=== PATIENT | male | born 1965 | race Caucasian/White ===

== ENCOUNTER 2023-12-29 07:32 | Outpatient (CLI) | payer OTHER, SELFPAY ==
--- NOTE | ~2023-12-29 | MR_ITS ---
MRI of the lumbar spine Clinical History: Radiculopathy Technique: Axial T2-weighted images, and sagittal T1-weighted, T2-weighted, and T2 fat-sat images wer e acquired. Findings: There is no fracture or subluxation of the lumbar spine. Vertebral bodies maintain normal h eight and alignment. No suspicious bone marrow signal abnormality seen. There is intraosseous hemangi gian in the T12 vertebral body. At L1-L2, there is mild disc narrowing. There is moderate facet arthropathy. No significant disc bulg e or herniation. No spinal canal stenosis or neural foraminal narrowing. At L2-L3, there is minimal disc bulge and moderate facet arthropathy. No central canal stenosis or ne ural foraminal narrowing. L3-L4, there is minimal disc bulge with advanced facet arthropathy. No central canal stenosis. There is probable minimal right neural foraminal narrowing. Left neural foramen present. At L4-L5, there is mild diffuse disc bulge with moderate to advanced facet arthropathy. No central ca nal stenosis or neural foraminal narrowing. At L5-S1, there is no disc bulge or herniation. No spinal canal stenosis or neural foraminal narrowin g. Paravertebral soft tissues are unremarkable. Impression: Minimal degenerative spondylosis, as above. Reviewed, dictated and finalized at location . Impression: Minimal degenerative spondylosis, as above.
--- NOTE | ~2023-12-29 | MR_ITS ---
MRI of the cervical spine Clinical History: Radiculopathy Technique: Axial T2-weighted and gradient images, and sagittal T1-weighted, T2-weighted, and STIR aj ges were acquired. Findings: There is anterior fusion from C3 through C6, with anterior plates and screws present. No ac lynn fracture or subluxation evident. No suspicious bone marrow signal abnormality seen. C2-C3, there is minimal degenerative disc change. No central canal stenosis, cord compression, or def inite neural foraminal narrowing. At C3-C4, there is no disc bulge or herniation. Probable minimal canal stenosis without cord compress ion. There is bilateral neural foraminal narrowing, left worse than right. At C4-C5, there is no disc bulge or herniation. No canal stenosis or cord compression. There is proba ble bilateral neural foraminal narrowing, right worse than left. At C5-C6, there is no disc bulge or herniation. No spinal canal stenosis, cord compression, or defini te neural foraminal narrowing. At C6-C7, there is no disc bulge or herniation. No spinal canal stenosis, cord compression, or defini te neural foraminal narrowing. No abnormal signal seen in the spinal cord. Paravertebral soft tissues are unremarkable. Impression: Anterior cervical fusion from C3 through C6. Mild degenerative spondylosis, as above. Reviewed, dictated and finalized at [facility]. Impression: Anterior cervical fusion from C3 through C6. Mild degenerative spondylosis, as above.
== END 2023-12-29 07:33 | disposition home or self-care (01) ==
PROVIDERS: Visit Provider Physical Medicine & Rehabilitation Pain Medicine
DX: M47.812 Spondylosis without myelopathy or radiculopathy, cervical region (principal); M47.816 Spondylosis without myelopathy or radiculopathy, lumbar region; M43.22 Fusion of spine, cervical region; M54.12 Radiculopathy, cervical region; M54.16 Radiculopathy, lumbar region
CPT/HCPCS: 72141; 72148

== ENCOUNTER 2024-09-16 06:55 | Outpatient (CLI) | payer OTHER, SELFPAY ==
--- NOTE | ~2024-09-16 | MR_ITS ---
MRI of the cervical spine Clinical History: Radiculopathy Technique: Axial T2-weighted and gradient images, and sagittal T1-weighted, T2-weighted, and STIR aj ges were acquired. Following intravenous administration of 20 cc MultiHance gadolinium, T1-weighted f at-sat imaging was performed in the axial and sagittal planes. COMPARISON: 12/29/2023 Findings: No acute fracture or subluxation identified. Osseous alignment is unchanged. Stable anterio r fusion from C3 through C7. No suspicious marrow signal abnormality seen, but there is extensive art ifact related to the hardware. There is minimal disc bulge at C2-C3. Neural foramina appear preserved. No canal stenosis or cord com pression. At C3-C4, there is mild canal stenosis without sherry cord compression. There is left neural foraminal narrowing. Right neural foramen preserved. At C4-C5, there is mild bilateral neural foraminal narrowing, right worse than left. No canal stenosi s or cord compression. At C5-C6, there is probable mild bilateral neural foraminal narrowing. No canal stenosis or cord comp ression. At C6-C7, there may be minimal right neural foraminal narrowing. Left neural foramen preserved. No ca nal stenosis or cord compression. No abnormal signal seen in the spinal cord. Paravertebral soft tissues are unremarkable. No suspiciou s postcontrast enhancement identified. Impression: Anterior fusion from C3 through C7. Kagr-cr-cmtnbaad degenerative spondylosis in the cervical spine, with multilevel probable mild neural foraminal narrowing present. Reviewed, dictated and finalized at [facility]. Impression: Anterior fusion from C3 through C7. Vnnh-zt-vbfxrxlu degenerative spondylosis in the cervical spine, with multileve l probable mild neural foraminal narrowing present.
--- NOTE | ~2024-09-16 | CT_ITS ---
CT Scan of the Chest without Contrast: Clinical Indication: Lung cancer screening, nicotine dependence Technique: Contiguous sections were acquired throughout the chest without intravenous contrast. Dose reduction technique was used on this scan by utilizing automated exposure control and iterative recon struction technique. The dose-length product (DLP) was 153.63 mGy-cm. Findings: There is no evidence of any significant mediastinal, hilar or axillary lymphadenopathy. Calcified med iastinal and hilar lymph nodes are present. There is no evidence of pleural or pericardial effusion. 5 mm right lower lobe pulmonary nodule present (axial image 51). 5 mm right middle lobe nodule presen t (axial image 54). Pleural-based nodule posteriorly at the right lower lobe measures 1 cm (axial aj ge 62). Calcified right basilar granulomas are present. There is a 3 mm left lower lobe nodule (axial image 69). There is a 3 mm pleural-based nodules in the left lower lobe (axial image 50). Images through the upper abdomen reveal calcified gallstones. Impression: Lung RADS 4A: Suspicious. 3 month follow-up CT recommended. Reviewed, dictated and finalized at location M. Impression: Lung RADS 4A: Suspicious. 3 month follow-up CT recommended.
--- OUTSIDE RECORDS SUMMARY | 2024-09-16 06:59 | XMS_ITS | Referral Summary ---
Author Organization [address] Address [address] [place] [address] [address] [place] [address] Care Team Providers Care Rapid Extractor Operator Name Role Phone Ginette Childs [place] Unavailable + [phone] Tay Finley MD Unavailable [phone] Sadi Cisneros MD Primary Care Provider Encounters Date Type Department Care Team Description 07/13/2024 Results Follow-Up [facility] at [address] [address] Sadi Cisneros MD Folate, Vitamin B12, Comprehensive metabolic panel, Additional followed-up results: 9 07/12/2024 9:14 AM CDT - 07/12/2024 11:59 PM CDT Hospital Encounter [address] [address] Type 2 diabetes mellitus with hyperglycemia, without long-term current use of insulin (HCC); Mixed dyslipidemia; Need for hepatitis B screening test; Prostate cancer screening; Subclinical hypothyroidism Discharge Disposition: Discharge to home or self care 07/12/2024 9:15 AM CDT Lab [facility] at [address] [id number] Type 2 diabetes mellitus with hyperglycemia, without long-term current use of insulin (HCC) (Primary Dx) 07/12/2024 8:30 AM CDT Office Visit [facility] at [address] [address] Sadi Cisneros MD Preventative health care (Primary Dx); QUYEN on CPAP; Mixed dyslipidemia; Paranoid schizophrenia (HCC); Subclinical hypothyroidism; Type 2 diabetes mellitus with hyperglycemia, without long-term current use of insulin (HCC); Need for hepatitis B screening test; Prostate cancer screening; Personal history of tobacco use; Hx of colonic polyps; History of neck surgery; Family hx of colon cancer; Recurrent epistaxis; Moderate episode of recurrent major depressive disorder (HCC); JOSÉ MIGUEL (generalized anxiety disorder); CKD stage 3a, GFR 45-59 ml/min (HCC) from Last 3 Months Allergies No known active allergies Medications traZODone (DESYREL) 100 mg tablet Take 2 tablets (200 mg total) by mouth nightly Active Invega Sustenna 156 mg/mL syringe Inject 1 mL (156 mg total) into the muscle as instructed every 4 (four) weeks 4 Active empagliflozin (JARDIANCE) 25 mg tabletIndicatio ns:Type 2 diabetes mellitus with hyperglycemia, without long-term current use of insulin (HCC) Take 1 tablet (25 mg total) by mouth daily 90 tablet 1 5 Active metFORMIN XR (GLUCOPHAGE XR) 500 mg 24 hr tabletIndicatio ns:Type 2 diabetes mellitus with hyperglycemia, without long-term current use of insulin (HCC) Take 2 tablets (1,000 mg total) by mouth 2 (two) times a day with meals 360 tablet 3 5 Active rosuvastatin (CRESTOR) 20 mg tabletIndicatio ns:Mixed dyslipidemia,Ty pe 2 diabetes mellitus with hyperglycemia, without long-term current use of insulin (HCC) Take 1 tablet (20 mg total) by mouth daily 90 tablet 3 5 Active Active Problems Problem Noted Date Diagnosed Date CKD stage 3a, GFR 45-59 ml/min 07/13/2024 Assessment & Plan (07/13/2024 8:06 AM CDT): - chronic condition - avoid NSAIDs, Bactrim, Contrast, PPI - continue with low phos diet and low K diet - renally dose medications Lab Results Component Value Date CREATININE 1.52 (H) 07/12/2024 CREATININE 1.32 (H) 12/11/2023 CREATININE 1.52 (H) 04/24/2023 JOSÉ MIGUEL (generalized anxiety disorder) 07/12/2024 Assessment & Plan (07/12/2024 9:54 AM CDT): - Paranoid Schizophrenia, anxiety, depression Being treated with Invega. Reports ongoing auditory and visual hallucinations, which worsen when due for medication. Consistent with medication adherence. - Continue Invega - continue with Trazodone 200 mg nightly Bipolar disorder Recently transitioned off Seroquel, experiencing mood swings and sleep disturbances. Transition has been challenging with mood swings and thoughts of something happening. - Monitor mood and sleep patterns - Evaluate need for medication adjustment MDD (major depressive disorder) 07/12/2024 Assessment & Plan (07/12/2024 9:55 AM CDT): - Paranoid Schizophrenia, anxiety, depression Being treated with Invega. Reports ongoing auditory and visual hallucinations, which worsen when due for medication. Consistent with medication adherence. - Continue Invega - continue with Trazodone 200 mg nightly Bipolar disorder Recently transitioned off Seroquel, experiencing mood swings and sleep disturbances. Transition has been challenging with mood swings and thoughts of something happening. - Monitor mood and sleep patterns - Evaluate need for medication adjustment History of neck surgery 07/12/2024 Assessment & Plan (07/12/2024 9:00 AM CDT): - hx of cervical spine surgery - fusion - hx of cervical spine fusion for DDD cervical spine, cervical radiculopathy - last done in 2019 Preventative health care 07/12/2024 Assessment & Plan (07/13/2024 8:03 AM CDT): - New or chronic worsening conditions or conditions that are not at goal: T2DM, recurrent epistaxis - Mental health: following with psychiatry for depression, anxiety, bipolar disorder and schizophrenia - Dental health: Recommend regular dental care and cleaning. Discussed importance of regular tooth brushing, flossing, and dental visits. - Nutrition: Recommend moderation in sodium/caffeine intake, saturated fat and cholesterol, caloric balance, sufficient intake of fresh fruits, vegetables - Exercise: Recommend to exercise at least 30 minutes moderate to vigorous exercise most days of the week. (minimum 150 minutes weekly) - Immunizations: Age and sex appropriate immunizations reviewed and offered - Prostate cancer screening: Recommended, order placed - Colon cancer screening: Recommended, order placed - Lung cancer screening: Recommended, order placed Lab Results Component Value Date PSA 0.52 07/12/2024 PSA 0.66 04/24/2023 Family hx of colon cancer 07/12/2024 Assessment & Plan (07/12/2024 9:55 AM CDT): - reports family hx of colon cancer in brother - reports hx of colon polyp in past - referral placed to GI for colonoscopy Hx of colonic polyps 07/12/2024 Assessment & Plan (07/12/2024 9:55 AM CDT): - reports family hx of colon cancer in brother - reports hx of colon polyp in past - referral placed to GI for colonoscopy Personal history of tobacco use 07/12/2024 Assessment & Plan (07/12/2024 9:52 AM CDT): Social History Tobacco Use Smoking Status Former Current packs/day: 0.00 Average packs/day: 1.5 packs/day for 20.0 years (30.0 ttl pk-yrs) Types: Cigarettes Start date: 03/1996 Quit date: 03/2016 Years since quittin.2 Smokeless Tobacco Never - continue with abstinence from tobacco smoking - due for lung cancer screening CT, order placed Recurrent epistaxis 07/12/2024 Assessment & Plan (07/12/2024 9:51 AM CDT): Intermittent epistaxis from left nostril, ongoing for 1-2 months. Likely due to dryness and irritation. No clear obstruction noted. ENT referral considered if symptoms persist. - Use saline nasal spray three times daily - Apply Vaseline to affected area - Consider ENT referral if symptoms persist Subclinical hypothyroidism 04/25/2023 Overview (07/13/2024): Resolved 07/23 Assessment & Plan (07/12/2024 8:44 AM CDT): - noted in the past - recheck labs, order placed Lab Results Component Value Date TSH 8.84 (H) 04/24/2023 Type 2 diabetes mellitus wit h stage 3a chronic kidney disease, without long-term current use of insulin 04/25/2023 Assessment & Plan (12/11/2023 5:09 PM CDT): Patient is a degree of CKD stage IIIA on his last labs. Diabetes poorly controlled needs improvement. Metformin dose increased. We will add Jardiance for diabetic control as well as renal benefits. Monitor. Worker about it in exercise Type 2 diabetes mellitus wit h hyperglycemia, without long-term current use of insulin 04/22/2023 Assessment & Plan (07/13/2024 8:02 AM CDT): Chronic condition, better controlled but not at goal Goal A1c <7 Diagnosed 2-3 years ago. Current A1c is 7.9, improved from previous 9.0. On metformin 1000 mg BID and Jardiance 10 mg daily. Plan to optimize glycemic control by increasing Jardiance dosage. - Increase Jardiance to 25 mg daily - Order comprehensive blood work including A1c - Follow up in 4 months to assess diabetes control Lab Results Component Value Date HGBA1C 9.0 12/11/2023 HGBA1C 7.9 04/22/2023 Lab Results Component Value Date LDLCALC 47 07/12/2024 CREATININE 1.52 (H) 07/12/2024 Assessment & Plan (12/11/2023 5:09 PM CDT): Chronic. Poorly controlled. Blood sugars and A1c worsening. Increase metformin to a 1000 mg twice daily. Add Jardiance 10 mg daily. Discussed option for coupon card that they can get [id number]. Reviewed side effects of medication. Really work on diabetic diet and exercise. Encouraged weight loss. We will plan to see him back in 3 months for monitoring. Assessment & Plan (04/22/2023 5:50 PM IT CONSULTING DIRECTOR): Chronic. Uncontrolled but has been off his metformin the last 2 months. We will restart. Discussed diabetic foot and eye care. Foot exam done today. He may have very subtle signs suggesting early diabetic neuropathy which will need to be monitored but sensation was still present to monofilament. Encouraged yearly eye exam. Patient plans to schedule once we get his A1c under better control. Counseled on diabetic diet and regular exercise. We will follow up with him in 3 months Paranoid schizophrenia 04/22/2023 Overview (07/12/2024): Follows with psychiatry Assessment & Plan (07/12/2024 9:54 AM CDT): - Paranoid Schizophrenia, anxiety, depression Being treated with Invega. Reports ongoing auditory and visual hallucinations, which worsen when due for medication. Consistent with medication adherence. - Continue Invega - continue with Trazodone 200 mg nightly Bipolar disorder Recently transitioned off Seroquel, experiencing mood swings and sleep disturbances. Transition has been challenging with mood swings and thoughts of something happening. - Monitor mood and sleep patterns - Evaluate need for medication adjustment Assessment & Plan (04/22/2023 5:52 PM IT CONSULTING DIRECTOR): Chronic. Follows with Psychiatry. Reports currently stable on regimen. Continue medication care per psychiatrist NAFLD (nonalcoholic fatty liver disease) 024 Assessment & Plan (12/11/2023 5:10 PM CDT): LFTs were okay on last labs. Encouraged healthy diet, exercise, weight loss. We will monitor. Repeat LFTs and CMP ordered to establish baseline. Assessment & Plan (04/22/2023 5:54 PM IT CONSULTING DIRECTOR): Patient with history of fatty liver disease. Prior records show possible signs of elevated LFTs in 2020 consistent with likely FORD. Counseled on healthy diet, exercise. We will monitor his lab Mixed dyslipidemia 03/06/2021 Assessment & Plan (07/13/2024 8:03 AM CDT): - chronic condition - status: is adequately controlled. - current management/medications: Rosuvastatin 20 mg daily - other comorbid conditions:T2DM - patient is compliant with medications. - most recent LDL as shown below - maintain a healthy weight, diet - will monitor closely The current medical regimen is effective; continue present plan and medications. Lab Results Component Value Date CHOL 133 07/12/2024 CHOL 133 12/11/2023 CHOL 280 (H) 04/24/2023 Lab Results Component Value Date HDL 62 07/12/2024 HDL 60 12/11/2023 HDL 49 04/24/2023 Lab Results Component Value Date LDLCALC 47 07/12/2024 LDLCALC 50 12/11/2023 LDLCALC See Comment 04/24/2023 LDLDIRECT 163 (H) 04/24/2023 Lab Results Component Value Date TRIG 141 07/12/2024 TRIG 131 12/11/2023 TRIG 496 (H) 04/24/2023 Lab Results Component Value Date ALT 38 07/12/2024 AST 33 07/12/2024 ALKPHOS 63 07/12/2024 BILITOT 0.4 07/12/2024 Assessment & Plan (12/11/2023 5:11 PM CDT): Chronic. Was uncontrolled at last visit. Tolerating rosuvastatin. Get updated cholesterol level to monitor response Assessment & Plan (04/22/2023 5:50 PM IT CONSULTING DIRECTOR): Chronic. Has been on lovastatin possibly at a 20 mg dose. Remotely looks like may have been on rosuvastatin several years ago. Check cholesterol level and start appropriate intensity statin based on results QUYEN on CPAP 10/26/2020 Overview (04/22/2023): (10/26/20 at [facility]): AHI = 22.6 / supine AHI = 61.5 / O2 fabricio = 87%; lack of sleep onset with CPAP. Assessment & Plan (07/12/2024 9:56 AM CDT): Uses CPAP machine regularly. Reports difficulty using CPAP due to nasal obstruction. CPAP humidifier functioning to aid in symptom management. - Provide serial number of CPAP machine for monitoring - Ensure CPAP humidifier is functioning To send me the serial number (10/26/20 at [facility]): AHI = 22.6 / supine AHI = 61.5 / O2 fabricio = 87%; lack of sleep onset with CPAP. Assessment & Plan (04/22/2023 5:52 PM IT CONSULTING DIRECTOR): Chronic. He reports compliance with CPAP. Continue Resolved Problems Problem Noted Date Diagnosed Date Resolved Date Class 1 obesity due to exces s calories with serious comorbidity and body mass index (BMI) of 30.0 to 30.9 in adult 12/11/2023 07/12/2024 Assessment & Plan (12/11/2023 5:12 PM CDT): Chronic. BMI worse since last visit. Encouraged healthy diet, exercise, weight loss. Monitor NARAYANAN (dyspnea on exertion) 04/22/2023 Assessment & Plan (04/22/2023 5:51 PM IT CONSULTING DIRECTOR): Chronic intermittent issue off and on for years. Patient had cardiology evaluation in 02/2021. Cardiac catheterization at that time was negative for any signs of coronary artery disease. It is possible that it is actually a respiratory issue. He has had increased shortness of breath and activity intolerance over the last 3 weeks. EKG done in office today shows a normal sinus rhythm with possible early R/S transition however this could slightly be due to lead placement location. There was no definitive Q-waves. There was no pathologic ST elevation or depression. We will obtain pulmonary function testing to further evaluate symptoms. Patient is to avoid smoking and vaping. We will check some baseline labs Nicotine use disorder 04/22/20232024 Overview (07/12/2024): Quit 2017 Assessment & Plan (07/12/2024 8:42 AM CDT): Social History Tobacco Use Smoking Status Former Current packs/day: 0.00 Average packs/day: 1.5 packs/day for 20.0 years (30.0 ttl pk-yrs) Types: Cigarettes Start date: 03/1996 Quit date: 03/2016 Years since quittin.2 Smokeless Tobacco Never - continue with abstinence Assessment & Plan (12/11/2023 5:11 PM CDT): Encouraged to quit. Monitor Assessment & Plan (04/22/2023 5:53 PM IT CONSULTING DIRECTOR): Chronic. Patient with history of heavy tobacco smoking for over 20 years. He is at increased risk for lung cancer. May warrant low-dose lung cancer screening once we see if his respiratory symptoms stabilize a little bit more as we are not allowed to do the low-dose CT screening during acute illness. We will obtain PFTs to further evaluate the respiratory symptoms Benign essential HTN 03/06/2021 025 Assessment & Plan (12/11/2023 5:10 PM CDT): Blood pressure well-controlled in office today. Patient reports he was not taking losartan. Given blood pressure is good without losartan we will continue to monitor off blood pressure medication. Encouraged healthy diet and lifestyle. Encouraged weight loss Assessment & Plan (04/22/2023 5:49 PM IT CONSULTING DIRECTOR): Chronic. Blood pressure was controlled in office today. It has not positive on his current dose. May be losartan 25 however when my staff call the pharmacy sounds like it might actually be losartan 100. Patient is to verify his losartan dose when he gets home and let us know so we can refill the correct dose. Records request completed for his last PCP Immunizations Immunization Administration Dates Next Due H1N1 Inj Preservative Free 02/25/2022 Influenza, Quadrivalent, Spl it, Preservative Free, Intramuscular 02/25/2022 Influenza, Unspecified 07/12/2024(Deferr ed: Patient Refused),03/31/2023(Deferred: Patient Refused) Social History Tobacco Use Types Packs/Day Years Used Date Smoking Tobacco: Former Cigarettes 1.5 20 0 03/1996 - 03/2016 Smokeless Tobacco: Never Tobacco Cessation:Counseling Given: Not Answered AUDIT-C Answer Date Recorded Q1: How often do you have a drink containing alcohol? Never 12/11/2023 Q2: How many drinks containi ng alcohol do you have on a typical day when you are drinking? Patient does not drink Q3: How often do you have si x or more drinks on one occasion? Never 12/11/2023 PHQ-2 Answer Date Recorded PHQ-2 Total Score (If total score is 3 or more points, staff should administer the PHQ-9) 0 07/12/2024 Sex and Gender Information Value Date Recorded Sex Assigned at Not on file Legal Sex Male 1:00 PM CDT Gender Identity Not on file Sexual Orientation Not on file Last Filed Vital Signs Vital Sign Reading Time Taken Comments Blood Pressure 126/76 07/12/2024 8:28 AM CDT Pulse 78 07/12/2024 8:28 AM CDT Temperature 36.8 C (98.2 F) 07/12/2024 8:28 AM CDT Respiratory Rate 16 12/11/2023 1:39 PM CDT Oxygen Saturation 98% 07/12/2024 8:28 AM CDT Inhaled Oxygen Concentration - - Weight 104.9 kg (231 lb 4.8 oz) 07/12/2024 8:28 AM CDT Height 188 cm (6' 2) 07/12/2024 8:28 AM CDT Body Mass Index 29.7 07/12/2024 8:28 AM CDT Plan of Treatment Not on file Procedures Procedure Name Priority Date/Time Associated Diagnosis Comments EGFR Routine 07/12/2024 9:14 AM CDT Type 2 diabetes mellitus with hyperglycemia, without long-term current use of insulin (HCC) DIFFERENTIAL AUTO Routine 07/12/2024 9:1 4 AM CDT Type 2 diabetes mellitus with hyperglycemia, without long-term current use of insulin (HCC) THYROID FUNCTION CASCADE Routine 07/12/2024 9:14 AM CDT Subclinical hypothyroidism PSA SCREEN Routine 07/12/2024 9:14 AM CDT Prostate cancer screening ALBUMIN CREATININE RATIO, URINE Routine 07/12/2024 9:14 AM CDT Type 2 diabetes mellitus with hyperglycemia, without long-term current use of insulin (HCC) CBC WITH AUTO DIFFERENTIAL Routine 07/12/2024 9:14 AM CDT Type 2 diabetes mellitus with hyperglycemia, without long-term current use of insulin (HCC) LIPID PANEL Routine 07/12/2024 9:14 AM CDT Mixed dyslipidemia Type 2 diabetes mellitus with hyperglycemia, without long-term current use of insulin (HCC) COMPREHENSIVE METABOLIC PANEL Routine 07/12/2024 9:14 AM CDT Type 2 diabetes mellitus with hyperglycemia, without long-term current use of insulin (HCC) VITAMIN B12 Routine 07/12/2024 9:14 AM CDT Type 2 diabetes mellitus with hyperglycemia, without long-term current use of insulin (HCC) FOLATE Routine 07/12/2024 9:14 AM CDT Type 2 diabetes mellitus with hyperglycemia, without long-term current use of insulin (HCC) HEPATITIS B SURFACE ANTIGEN Routine 07/12/2024 9:14 AM CDT Need for hepatitis B screening test HEPATITIS B CORE ANTIBODY, TOTAL Routine 07/12/2024 9:14 AM CDT Need for hepatitis B screening test HEPATITIS B SURFACE ANTIBODY (IMMUNE STATUS) Routine 07/12/2024 9:14 AM CDT Need for hepatitis B screening test POCT HEMOGLOBIN A1C Routine 07/12/2024 8 :30 AM CDT Type 2 diabetes mellitus with hyperglycemia, without long-term current use of insulin (HCC) HM DIABETES EYE EXAM Routine 09/24/2023 8:51 AM CDT HEPATITIS C ANTIBODY Routine 04/24/2023 11:47 AM IT CONSULTING DIRECTOR Encounter for hepatitis C screening test for low risk patient from Last 3 Months or Most Recently Relevant to Health Maintenance Results * (ABNORMAL) eGFR (07/12/2024 9:14 AM CDT) eGFR 53(L) >=60 mL/min/1. 73 m2 Comment: Interpretive Data Reference Interval Normal >/= 90 mL/min/1.73m2 Mildly decreased* 60 - 89 mL/min/1.73m2 Mildly to moderately decreased 45 - 59 mL/min/1.73m2 Moderately to severely decreased 30 - 44 mL/min/1.73m2 Severely decreased 15 - 29 mL/min/1.73m2 Kidney Failure < 15 mL/min/1.73m2 *Relative to young adult level Estimated glomerular filtration rate is determined by the 2020 CKD-EPI equation recommended by the National Kidney Foundation (A Unifying Approach to GFR Estimation: Recommendations of the NKF-ASK Task Force on Reassessing the Inclusion of Race in Diagnosing Kidney Disease, JASN 2020). The CKD-EPI equation should not be used for patients with unstable renal function and has not been validated in children and those over 70. Current interpretive data was last reviewed 2021. Blood 07/12/2024 9:14 AM CDT 07/12/2024 7:47 PM CDT us Sadi Cisneros MD LAB BLOOD ORDERABLES nal Result CATHERINE [id number] Department [place] [address] * Differential, auto (07/12/2024 9:14 AM CDT) Neutrophil abs 5.53 1.50 - 6.50 K/cumm Imm gran abs 0.06 0.00 - 0.10 K/cumm [facility] Lymphocyte abs 1.51 0.80 - 3.30 K/cumm [facility] Monocyte abs 0.61 0.20 - 0.80 K/cumm [facility] Eosinophil abs 0.20 0.00 - 0.50 K/cumm [facility] Basophil abs 0.09 0.00 - 0.10 K/cumm [facility] Neutrophil pct 69.1 % [facility] Comment: Interpretive Data Percent cell count reference ranges are not reported, since discordance with absolute values may lead to misinterpretation of CBC data. Current Interpretive Data was last revised on 2017. Imm gran pct 0.8 % [facility] Comment: Interpretive Data Percent cell count reference ranges are not reported, since discordance with absolute values may lead to misinterpretation of CBC data. Current Interpretive Data was last revised on 2017. Lymphocyte pct 18.9 % [facility] Comment: Interpretive Data Percent cell count reference ranges are not reported, since discordance with absolute values may lead to misinterpretation of CBC data. Current Interpretive Data was last revised on 2017. Monocyte pct 7.6 % [facility] Comment: Interpretive Data Percent cell count reference ranges are not reported, since discordance with absolute values may lead to misinterpretation of CBC data. Current Interpretive Data was last revised on 2017. Eosinophil pct 2.5 % [facility] Comment: Interpretive Data Percent cell count reference ranges are not reported, since discordance with absolute values may lead to misinterpretation of CBC data. Current Interpretive Data was last revised on 2017. Basophil pct 1.1 % [facility] Comment: Interpretive Data Percent cell count reference ranges are not reported, since discordance with absolute values may lead to misinterpretation of CBC data. Current Interpretive Data was last revised on 2017. Blood 07/12/2024 9:14 AM CDT 07/12/2024 3:35 PM CDT Sadi Cisneros MD LAB BLOOD ORDERABLES Fi nal Result Performing Organization Address [facility] [[email or web address]] de Phone Number CATHERINE [phone] [place] [address] * Thyroid Function [place] (07/12/2024 9:14 AM CDT) Pathologist [facility] TSH 2.87 0.30 - 4.20 mcIUnit/mL Blood 07/12/2024 9:14 AM CDT 07/12/2024 3:35 PM CDT Sadi Cisneros MD LAB BLOOD ORDERABLES Fi nal Result Performing Organization Address [facility] [[email or web address]] de Phone Number CATHERINE [phone] Department [employer] [place] [address] * PSA screen (07/12/2024 9:14 AM CDT) PSA-Total 0.52 <=3.90 ng/mL Comment: Interpretive Data AGE SEX REFERENCE INTERVAL 0 minutes-150 years Female None 0 minutes-49 years Male None 50-59 years Male 0-3.90 60-69 years Male 0-5.40 70-79 years Male 0-6.20 80-150 years Male 0-6.20 The Rashaad PSA Total assay procedure was used. Results from different manufacturers or methods may not be comparable. Serial testing should be performed using the same method. Current interpretive data last revised 21. Blood 07/12/2024 9:14 AM CDT 07/12/2024 3:35 PM CDT Sadi Cisneros MD LAB BLOOD ORDERABLES Fi nal Result Performing Organization Address [facility] Co de Phone Number CATHERINE [place]ES [phone] [place] [address] * CBC with auto differential (07/12/2024 9:14 AM CDT) WBC 8.00 3.80 - 9.90 K/cumm Hgb 16.1 13.0 - 17.5 g/dL [facility] Hct 48.6 38.9 - 50.3 % [facility] Plt 230 150 - 400 K/cumm [facility] MPV 9.7 9.1 - 12.3 fL [facility] RBC 5.68 4.30 - 5.80 M/cumm [facility] MCV 85.6 81.3 - 96.4 fL [facility] MCH 28.3 27.1 - 33.3 pg [facility] MCHC 33.1 32.3 - 35.7 g/dL [facility] RDW CV 13.4 11.1 - 14.9 % [facility] RDW SD 41.8 35.7 - 48.1 fL [facility] NRBC abs 0.00 0.00 - 0.01 K/cumm [facility] Blood 07/12/2024 9:14 AM CDT 07/12/2024 3:35 PM CDT Sadi Cisneros MD LAB BLOOD ORDERABLES Fi nal Result Performing Organization Address [facility] Co de Phone Number CATHERINE VIDES [phone] [address] [place] [address] * Albumin Creatinine Ratio, Urine (07/12/2024 9:14 AM CDT) Pathologist [facility] [place] Albumin Ur 26.1 mg/L Comment: Interpretive Data No reference range established. Current interpretive data was last revised 2018. Creatinine Ur 131.2 mg/dL [facility] Comment: Interpretive Data No reference range established. Current interpretive data was last revised 2018. Albumin Creatinine Ratio, Ur 20 1 - 29 mg/g CATHERINE Urine 07/12/2024 9:14 AM CDT 07/12/2024 3:35 PM CDT Sadi Cisneros MD LAB URINE ORDERABLES Fi nal Result Performing Organization Address [facility]/ZIP Co de Phone Number CATHERINE [phone] [place] [address] * Hepatitis B core antibody, total Blood (07/12/2024 9:14 AM CDT) Pathologist [facility] [place] Hep B core IgG/IgM Nonreactive Nonreactive Comment:Testing performed by : [facility], [address] [facility], [place]., [address] Blood 07/12/2024 9:14 AM CDT 07/13/2024 10:08 AM CDT Sadi Cisneros MD LAB MICROBIOLOGY - GENE RAL ORDERABLES Final Result Performing Organization Address [facility] Co de Phone Number CATHERINE [phone] [place] [address] * Hepatitis B surface antibody (immune status) Blood (07/12/2024 9:14 AM CDT) Pathologist [facility] HBsAb (immune status) Nonreactive Comment: Interpretive Data Nonreactive: This result is consistent with a lack of immunity to Hepatitis B Virus when used in the setting of routine screening. Equivocal: The immune status of the individual should be further assessed, if appropriate, after consideration of clinical status, risk factors, and additional diagnostic information. Reactive: This result is consistent with immunity to Hepatitis B Virus when used in the setting of routine screening. Current interpretive data was last revised on 19. Blood 07/12/2024 9:14 AM CDT 07/12/2024 3:35 PM CDT Sadi Cisneros MD LAB MICROBIOLOGY - GENE RAL ORDERABLES Final Result Performing Organization Address [facility] [[email or web address]] de Phone Number CATHERINE [phone] [address] [facility] [employer] [place] [address] * Hepatitis B Surface Antigen Blood (07/12/2024 9:14 AM CDT) HepBsAg Nonreactive Nonreactive Blood 07/12/2024 9:14 AM CDT 07/12/2024 3:35 PM CDT Sadi Cisneros MD LAB MICROBIOLOGY - GENE RAL ORDERABLES Final Result Performing Organization Address [facility] Phone Number CATHERINE [phone] [address] [facility] [employer] [place] [address] * Folate (07/12/2024 9:14 AM CDT) Pathologist [facility] Folic acid 11.4 >=5.0 ng/mL Comment:Hemolysis present. R esults may be affected. Blood 07/12/2024 9:14 AM CDT 07/12/2024 3:35 PM CDT Sadi Cisneros MD LAB BLOOD ORDERABLES Fi nal Result Performing Organization Address [facility] Co de Phone Number CATHERINE [phone] [address] [facility] [employer] [place] [address] * Vitamin B12 (07/12/2024 9:14 AM CDT) Pathologist [facility] Vitamin B12 557 230 - 1,250 pg/mL Blood 07/12/2024 9:14 AM CDT 07/12/2024 3:35 PM CDT Sadi Cisneros MD LAB BLOOD ORDERABLES Fi nal Result CATHERINE [id number] [address] [facility] [place] [address] * Lipid panel (07/12/2024 9:14 AM CDT) Cholesterol 133 30 - 199 mg/dL Comment: Interpretive Data Ages < or = 19 years Acceptable: <170 mg/dL Borderline high: 170-199 mg/dL High: >or= 200 mg/dL Ages > or = 20 years Desirable: <200 mg/dL Borderline high: 200-239 mg/dL High: >or= 240 mg/dL Literature References: 1. Expert Panel on Integrated Guidelines for Cardiovascular Health and Risk Reduction in Children and Adolescents. Pediatrics 2011;128:S213 2. NCEP Expert Panel. Circulation 2004;110:227 Current Interpretive Data was last revised on 2017. Triglycerides 141 <=149 mg/dL CATHERINE VIDES Comment: Interpretive Data Ages < or = 9 years Acceptable: <75 mg/dL Borderline high: 75-99 mg/dL High: >or= 100 mg/dL Ages 10 to 20 years Acceptable: <90 mg/dL Borderline high: 90-129 mg/dL High: >or= 130 mg/dL Ages > or = 20 years Desirable: <150 mg/dL Borderline high: 150-199 mg/dL High: 200-499 mg/dL Very high: >or= 499 mg/dL Literature References: 1. Expert Panel on Integrated Guidelines for Cardiovascular Health and Risk Reduction in Children and Adolescents. Pediatrics 2011;128:S213 2. NCEP Expert Panel. Circulation 2004;110:227 Current Interpretive Data was last revised on 2017. HDL 62 >=40 mg/dL CATHERINE VIDES Comment: Interpretive Data Ages < or = 19 years Acceptable: >45 mg/dL Borderline low: 40-45 mg/dL Low: <40 mg/dL Ages > or = 20 years Desirable: >or= 60 mg/dL Low: <40 mg/dL Literature References: 1. Expert Panel on Integrated Guidelines for Cardiovascular Health and Risk Reduction in Children and Adolescents. Pediatrics 2011;128:S213 2. NCEP Expert Panel. Circulation 2004;110:227 Current Interpretive Data was last revised on 2017. LDL, calculated 47 <=129 mg/dL CATHERINE VIDES Comment: Interpretive Data Ages < or = 19 years Acceptable: <110 mg/dL Borderline high: 110-129 mg/dL High: >or= 130 mg/dL Ages > or = 20 years Optimal: <100 mg/dL Near optimal: 100-129 mg/dL Borderline high: 130-159 mg/dL High: >160 mg/dL Calculated using the Yg LDL-C estimating equation. This equation was implemented on 2023. Prior to this date LDL-C was estimated using the Friedewald equation. Literature References: 1. Expert Panel on Integrated Guidelines for Cardiovascular Health and Risk Reduction in Children and Adolescents. Pediatrics 2011;128:S213 2. NCEP Expert Panel. Circulation 2004;110:227 3. Yg Carrera et al. SAM Cardiol. 2019July 29;5(5):540-548. doi: 10.1001/jamacardio.2020.0013 Current Interpretive Data was last revised on 2023. Non-HDL Cholesterol 71 mg/dL CATHERINE VIDES Comment: Interpretive Data Ages < or = 19 years Acceptable: <120 mg/dL Borderline high: 120-144 mg/dL High: >145 mg/dL Ages > or = 20 years When triglycerides are >200 mg/dL, Non-HDL cholesterol is a secondary target of therapy with treatment goals that are 30 mg/dL greater than the LDL cholesterol target. Literature References: 1. Expert Panel on Integrated Guidelines for Cardiovascular Health and Risk Reduction in Children and Adolescents. Pediatrics 2011;128:S213 2. NCEP Expert Panel. Circulation 2004;110:227 Current Interpretive Data was last revised on 2017. Chol/HDL ratio 2 CATHERINE Blood 07/12/2024 9:14 AM CDT 07/12/2024 3:35 PM CDT Narrative CATHERINE - 07/12/2024 10:17 PM CDT Has the patient been fasting for 8 hours or more?->No us Sadi Cisneros MD LAB BLOOD ORDERABLES Fi nal Result CATHERINE [phone] [address] Department [place] [address] * (ABNORMAL) Comprehensive metabolic panel (07/12/2024 9:14 AM CDT) Sodium 136 135 - 145 mmol/L Potassium, pl 4.0 3.3 - 4.9 mmol/L [facility] Chloride 97 97 - 110 mmol/L [facility] CO2 25 22 - 32 mmol/L [facility] Anion gap 14 2 - 15 mmol/L [facility] BUN 19 6 - 25 mg/dL [facility] Creatinine 1.52(H) 0.80 - 1.30 mg/dL [facility] Glucose 192 70 - 199 mg/dL [facility] Comment: Interpretive Data Fasting glucose >/= 126 mg/dl is diagnostic for diabetes. Fasting is defined as no caloric intake for at least 8 hours. Fasting glucose between 100 mg/dl to 125 mg/dl is diagnostic of prediabetes. In a patient with classic symptoms of hyperglycemia or hyperglycemic crisis, a random glucose >/= 200 mg/dl is diagnostic for diabetes. In the absence of unequivocal hyperglycemia, results should be confirmed by repeat testing. The classification and Diagnosis of Diabetes Diabetes Care 2021; 46: S19-S40. Current interpretive data was last revised 2022. Calcium 9.8 8.5 - 10.3 mg/dL [facility] Bilirubin, total 0.4 0.1 - 1.2 mg/dL [facility] Protein, pl 7.7 6.5 - 8.5 g/dL [facility] Albumin 4.6 3.5 - 5.0 g/dL [facility] Alk phos 63 40 - 130 Units/L [facility] ALT 38 7 - 55 Units/L [facility] AST 33 10 - 50 Units/L [facility] Blood 07/12/2024 9:14 AM CDT 07/12/2024 3:35 PM CDT us Sadi Cisneros MD LAB BLOOD ORDERABLES Fi nal Result CATHERINE VIDES [phone] [address] Department [place] [address] * POCT hemoglobin A1c (07/12/2024 8:30 AM CDT) Pathologist [facility] Hemoglobin A1C, POC 7.9 4.0 - 5.6 % Blood 07/12/2024 8:30 AM CDT Sadi Cisneros MD POINT OF CARE TEST TITA RIVERA Final Result * DIABETES EYE EXAM (09/24/2023 8:51 AM CDT) Pathologist [facility] SCRIBED DIABETIC DILATED EYE EXAM Normal Pat Etienne MD [facility] al Result * Hepatitis C antibody Blood (04/24/2023 11:47 AM IT CONSULTING DIRECTOR) Pathologist [facility] Hep C Ab Nonreactive Nonreactive CATHERINE VIDES Comment: Interpretive Data Nonreactive: Antibodies to HCV not detected. Does NOT exclude the possibility of recent exposure to HCV. Equivocal: Equivocal for HCV antibodies. Supplemental molecular testing will be automatically performed to determine infection status in accordance with current CDC screening recommendations. Reactive: Positive for HCV antibodies. This may represent current or past HCV infection. Supplemental molecular testing will be automatically performed to determine current infection status in accordance with current CDC screening recommendations. Interpretive data was last revised on 2019. 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
--- OUTSIDE RECORDS SUMMARY | 2024-09-16 06:59 | XMS_ITS | Clinical Summary ---
Author Organization [facility] [address] Address [address] [place] [address] [address] [place] [address] Care Team Providers Care Nurseryperson Name Role Phone Ginette Childs CNM Unavailable [phone] Tay Finley MD Unavailable [phone] Sadi Cisneros MD Primary Care Provider Allergies No known active allergies Medications traZODone [...] cervical radiculopathy - last done in 2019 [facility] health care 07/12/2024 Assessment & Plan (07/13/2024 [...] for coupon card that they can get [id number]. Reviewed side effects of medication. Really work on diabetic diet and exercise. Encouraged weight loss. We will plan to see him back in 3 months for monitoring. Assessment & Plan (04/22/2023 5:50 PM FUR BLOWER): Chronic. Uncontrolled but has been off his [...] adjustment Assessment & Plan (04/22/2023 5:52 PM FUR BLOWER): Chronic. Follows with Psychiatry. Reports currently stable on regimen. Continue medication care per psychiatrist NAFLD (nonalcoholic fatty liver disease) 024 Assessment & Plan (12/11/2023 5:10 PM CDT): LFTs were okay on last labs. Encouraged healthy diet, exercise, weight loss. We will monitor. Repeat LFTs and CMP ordered to establish baseline. Assessment & Plan (04/22/2023 5:54 PM FUR BLOWER): Patient with history of fatty liver disease. [...] response Assessment & Plan (04/22/2023 5:50 PM FUR BLOWER): Chronic. Has been on lovastatin possibly at a 20 mg dose. Remotely looks like may have been on rosuvastatin several years ago. Check cholesterol level and start appropriate intensity statin based on results QUYEN on CPAP 10/26/2020 Overview (04/22/2023): (10/26/20 at [facility]): AHI = 22.6 / supine AHI [...] send me the serial number (10/26/20 at [facility]): AHI = 22.6 / supine AHI = 61.5 / O2 fabricio = 87%; lack of sleep onset with CPAP. Assessment & Plan (04/22/2023 5:52 PM FUR BLOWER): Chronic. He reports compliance with CPAP. Continue [...] 04/22/2023 Assessment & Plan (04/22/2023 5:51 PM FUR BLOWER): Chronic intermittent issue off and on for [...] Monitor Assessment & Plan (04/22/2023 5:53 PM FUR BLOWER): Chronic. Patient with history of heavy tobacco [...] loss Assessment & Plan (04/22/2023 5:49 PM FUR BLOWER): Chronic. Blood pressure was controlled in office [...] Records request completed for his last PCP Encounters Date Type Department Care Team Description 07/13/2024 Results Follow-Up [facility] Primary Care at [address] [address] Sadi Cisneros MD Folate, Vitamin B12, Comprehensive metabolic panel, Additional followed-up results: 9 07/12/2024 9:15 AM CDT Lab [facility] Outpatient Lab at [address] [address] Type 2 diabetes mellitus with hyperglycemia, without long-term current use of insulin (HCC) (Primary Dx) 07/12/2024 9:14 AM CDT - 07/12/2024 11:59 PM CDT Hospital Encounter [facility] [id number] [id number] Type 2 diabetes mellitus with hyperglycemia, without long-term current use of insulin (HCC); Mixed dyslipidemia; Need for hepatitis B screening test; Prostate cancer screening; Subclinical hypothyroidism Discharge Disposition: Discharge to home or self care 07/12/2024 8:30 AM CDT Office Visit [facility] Primary Care at [address] [address] Sadi Cisneros MD Preventative health [...] 45-59 ml/min (HCC) from Last 3 Months Immunizations Immunization Administration Dates Next Due H1N1 Inj Preservative Free 02/25/2022 Influenza, Quadrivalent, Spl it, Preservative Free, Intramuscular 02/25/2022 Influenza, Unspecified 07/12/2024(Deferr ed: Patient Refused),03/31/2023(Deferred: Patient Refused) Surgical History Surgery Date Site/Laterality Comments SPINE SURGERY 3 cervical sx, last in 2019 CARDIAC CATHETERIZATION 03/09/2021 Medical History Medical History Date Comments Anxiety Arthritis Depression Diabetes mellitus (HCC) Hypertension Vitamin D deficiency Fatty liver Paranoid schizophrenia (HCC) QUYEN (obstructive sleep apnea) Family History Medical History Relation Name Comments Allergy (severe) Brother Griffinbopippa Fett Asthma Brother Griffinbopippa Fett Colon polyps Brother Griffinbopippa Fett COPD Father Karthikeyan Lechugat Diabetes Father Karthikeyan Lechugat Heart attack Father Karthikeyan Lechugat Heart disease Father Karthikeyan Fett Hyperlipidemia Father Karthikeyan Fett Hypertension Father Karthikeyan Lechugat Kidney disease Father Karthikeyan Lechugat Arthritis Mother Karlene Fett Heart attack Mother Karlene Fett Heart disease Mother Karlene Fett Hyperlipidemia Mother Karlene Fett Hypertension Mother Karlene Fett Mental illness Mother Karlene Ricketts Relation Name Status Comments Brother Wilfrido Fett Father Karthikeyan Fett Mother Karlene Ricketts Social History Tobacco Use Types Packs/Day Years [...] on file Sexual Orientation Not on file Obstetrics History Last Filed Vital Signs Vital Sign Reading [...] 07/12/2024 8:28 AM CDT Plan of Treatment Health Maintenance Due Date Last Done Comments Colon Cancer Screening-Colonoscopy 1966 DTaP/Tdap/Td Vaccine (1 - Tdap) 1977 Pneumococcal vaccine <65 (1 of 2 - PCV) 1985 Lung Cancer Screening 2016 Zoster Vaccine (1 of 2) 2016 Foot Exam 04/22/2024 04/22/2023 Dilated Eye Exam 09/23/2024 09/24/2023 Influenza Vaccine (Season Ended) 2024 02/26/20 22 Hemoglobin A1C 01/11/2025 07/12/2024, 11/29, 04/22/2023 Albumin Creatinine Ratio, Urine 07/12/2025 , 04/24/2023 Depression Screening 07/12/2025 07/12/2024, 12/11/2023, 04/22/2023 Lipid Panel 07/12/2025 07/12/2024, 11/29, 04/24/2023 Regular Well Visit/Exam 18-64 07/12/2025 07/12/2024 eGFR 07/12/2025 07/12/2024, 11/29, 04/24/2023 Prostate Cancer Screening-PSA 07/12/2026 07/12/2024, 04/24/2023 Hepatitis C Screening Completed 04/24/2023 Hepatitis B Screening Completed 07/12/2024 Procedures Procedure Name Priority Date/Time Associated Diagnosis [...] HEPATITIS C ANTIBODY Routine 04/24/2023 11:47 AM FUR BLOWER Encounter for hepatitis C screening test for low risk patient from Last 3 Months or Most Recently Relevant to Health Maintenance Results * (ABNORMAL) eGFR (07/12/2024 9:14 AM CDT) [facility] eGFR 53(L) >=60 mL/min/1. 73 m2 Comment: [...] LAB BLOOD ORDERABLES Fi nal Result CATHERINE [address] Department [place] [address] * Differential, auto (07/12/2024 9:14 AM CDT) Neutrophil abs 5.53 1.50 - 6.50 K/cumm Imm gran abs 0.06 0.00 - 0.10 K/cumm [facility] Lymphocyte abs 1.51 0.80 - 3.30 K/cumm [facility] Monocyte abs 0.61 0.20 - 0.80 K/cumm [facility] Eosinophil abs 0.20 0.00 - 0.50 K/cumm [facility] Basophil abs 0.09 0.00 - 0.10 K/cumm [facility] Neutrophil pct 69.1 % [facility] Comment: Interpretive Data Percent cell count reference ranges are not reported, since discordance with absolute values may lead to misinterpretation of CBC data. Current Interpretive Data was last revised on 2017. Imm gran pct 0.8 % CATHERINE Comment: Interpretive Data Percent cell [...] revised on 2017. Monocyte pct 7.6 % [facility] Comment: Interpretive Data Percent cell count reference ranges are not reported, since discordance with absolute values may lead to misinterpretation of CBC data. Current Interpretive Data was last revised on 2017. Eosinophil pct 2.5 % CERNER Comment: Interpretive Data Percent cell count reference ranges are not reported, since discordance with absolute values may lead to misinterpretation of CBC data. Current Interpretive Data was last revised on 2017. Basophil pct 1.1 % [facility] Comment: Interpretive Data Percent cell count reference ranges are not reported, since discordance with absolute values may lead to misinterpretation of CBC data. Current Interpretive Data was last revised on 2017. Blood 07/12/2024 9:14 AM CDT 07/12/2024 3:35 PM CDT Sadi Cisneros MD LAB BLOOD ORDERABLES Fi nal Result Performing Organization Address [facility] Co de Phone Number CATHERINE [phone] [place] [address] * Thyroid Function Parke (07/12/2024 9:14 AM CDT) Pathologist [facility] TSH 2.87 0.30 - 4.20 mcIUnit/mL Blood 07/12/2024 9:14 AM CDT 07/12/2024 3:35 PM CDT Sadi Cisneros MD LAB BLOOD ORDERABLES Fi nal Result Performing Organization Address [facility] Co de Phone Number CATHERINE [phone] [address] [facility] [place] [address] * PSA screen (07/12/2024 9:14 AM CDT) Pathologist [facility] PSA-Total 0.52 <=3.90 ng/mL Comment: Interpretive Data [...] ORDERABLES Fi nal Result Performing Organization Address [facility]/ZIP Co de Phone Number CATHERINE [phone] [place] [address] * CBC with auto differential (07/12/2024 9:14 AM CDT) WBC 8.00 3.80 - 9.90 K/cumm Hgb 16.1 13.0 - 17.5 g/dL [facility] Hct 48.6 38.9 - 50.3 % [facility] Plt 230 150 - 400 K/cumm [facility] MPV 9.7 9.1 - 12.3 fL [facility] RBC 5.68 4.30 - 5.80 M/cumm [facility] MCV 85.6 81.3 - 96.4 fL [facility] MCH 28.3 27.1 - 33.3 pg [facility] MCHC 33.1 32.3 - 35.7 g/dL [facility] RDW CV 13.4 11.1 - 14.9 % [facility] RDW SD 41.8 35.7 - 48.1 fL [facility] NRBC abs 0.00 0.00 - 0.01 K/cumm [facility] Blood 07/12/2024 9:14 AM CDT 07/12/2024 3:35 PM CDT Sadi Cisneros MD LAB BLOOD ORDERABLES Fi nal Result Performing Organization Address [facility]/ZIP Co de Phone Number CATHERINE [place] [phone] [address] [place] [address] * Albumin Creatinine Ratio, Urine (07/12/2024 9:14 AM CDT) Pathologist [facility] Albumin Ur 26.1 mg/L Comment: Interpretive Data No reference range established. Current interpretive data was last revised 2018. Creatinine Ur 131.2 mg/dL [facility] Comment: Interpretive Data No reference range established. Current interpretive data was last revised 2018. Albumin Creatinine Ratio, Ur 20 1 - 29 mg/g [facility] Urine 07/12/2024 9:14 AM CDT 07/12/2024 3:35 PM CDT Sadi Cisneros MD LAB URINE ORDERABLES Fi nal Result Performing Organization Address City/[facility]/ZIP Co de Phone Number CATHERINE [phone] [address] [place] [address] * Hepatitis B core antibody, total Blood (07/12/2024 9:14 AM CDT) Pathologist [facility] Hep B core IgG/IgM Nonreactive Nonreactive Comment:Testing performed by : [facility], [address] [facility], [place]., [address] Blood 07/12/2024 9:14 AM CDT 07/13/2024 10:08 AM CDT Sadi Cisneros MD LAB MICROBIOLOGY - GENE RAL ORDERABLES Final Result Performing Organization Address City/[facility]/ZIP Co de Phone Number CATHERINE [phone] [address] [place] [address] * Hepatitis B surface antibody (immune status) Blood (07/12/2024 9:14 AM CDT) Pathologist [facility] HBsAb (immune status) Nonreactive Comment: Interpretive Data [...] RAL ORDERABLES Final Result Performing Organization Address [facility] Co de Phone Number CATHERINE [place]ES [phone] [address] [facility] [place] [address] * Hepatitis B Surface Antigen Blood (07/12/2024 9:14 AM CDT) HepBsAg Nonreactive Nonreactive Blood 07/12/2024 9:14 AM CDT 07/12/2024 3:35 PM CDT Sadi Cisneros MD LAB MICROBIOLOGY - GENE RAL ORDERABLES Final Result Performing Organization Address [facility] de Phone Number NASEEMRODRIGO VIDES [phone] [address] [facility] [place] [address] * Folate (07/12/2024 9:14 AM CDT) Pathologist [facility] Folic acid 11.4 >=5.0 ng/mL Comment:Hemolysis present. R esults may be affected. Blood 07/12/2024 9:14 AM CDT 07/12/2024 3:35 PM CDT Sadi Cisneros MD LAB BLOOD ORDERABLES Fi nal Result Performing Organization Address [facility] Co de Phone Number CATHERINE [address]ES [phone] [address] [facility] [place] [address] * Vitamin B12 (07/12/2024 9:14 AM CDT) Pathologist [facility] Vitamin B12 557 230 - 1,250 pg/mL Blood 07/12/2024 9:14 AM CDT 07/12/2024 3:35 PM CDT Sadi Cisneros MD LAB BLOOD ORDERABLES Fi nal Result CATHERINE [address] [facility] Department [place] [address] * Lipid panel (07/12/2024 9:14 AM CDT) [...] LAB BLOOD ORDERABLES Fi nal Result CATHERINE [address] [address] [place] [address] * (ABNORMAL) Comprehensive metabolic panel [...] classification and Diagnosis of Diabetes Diabetes Care 202; 46: S19-S40. Current interpretive data was last [...] BLOOD ORDERABLES Fi nal Result CATHERINE VIDES [phone] [address] [place] [address] * POCT hemoglobin A1c (07/12/2024 8:30 AM CDT) Pathologist [facility] Hemoglobin A1C, POC 7.9 4.0 - 5.6 % Blood 07/12/2024 8:30 AM CDT Sadi Cisneros MD POINT OF CARE TEST TITA RIVERA Final Result * DIABETES EYE EXAM (09/24/2023 8:51 AM CDT) Pathologist [facility] SCRIBED DIABETIC DILATED EYE EXAM Normal Pat Etienne MD HEALTH MAINTENANCE [facility] al Result * Hepatitis C antibody Blood (04/24/2023 11:47 AM FUR BLOWER) Pathologist [facility] Hep C Ab Nonreactive Nonreactive CATHERINE VIDES [...] on 2019. Blood 04/24/2023 11:4 7 AM FUR BLOWER 04/24/2023 8:19 PM FUR BLOWER Pat Etienne MD LAB MICROBIOLOGY - GEN ERAL ORDERABLES Final Result CATHERINE [id number] [address] [place] [address] from Last 3 Months or Most Recently Relevant to Health Maintenance Insurance [employer] Address: [facility] [id number] [place] [address] [employer] Care Teams Nurseryperson Relationship Specialty Start Date End Date Sadi Cisneros MD [address] [facility] [address] [place], [place] [id number] PCP - General Family Medicine 09/08/24 Ginette Childs CNM [address] [place] [address] Nurse Practitioner Psychiatry 04/22/23 Tay Finley MD [address] [place] [address] Referring Physician Psychiatry 07/12/24
--- OUTSIDE RECORDS SUMMARY | 2024-09-16 06:59 | XMS_ITS | Data Portability ---
Author Organization [place] [facility] [place] Address [address] [place] [address] Care Team Providers Care Wet Machine Tender Name Role Phone WESTON OSBORN Primary Care Provider Assessment Encounter Date Assessment Date Assessment LastModified by Organization Details LastModified Time 11/06/2020 11/06/2020 Assessment: 1. Obstructive sleep apnea (QUYEN): Mr. Ricketts was explained about his diagnosis of moderately sever QUYEN associated with severe Supine-related QUYEN and significant hypoxemia. Optimal pressure was not achieved since he was not able to initiate sleep following initiation of CPAP therapy due to back pain and discomfort with the bed. He will need to undergo APAP trial for a week. He was reminded about the pathophysiology of QUYEN and the negative cardiovascular consequences of untreated apnea. 2. 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 He was explained that as soon as he gets acclimated with the device that he will gradually note improvements in his sleep quality and level of alertness. 3. Hypertension: He was explained the relationship between untreated sleep apnea and hypertension and cardiovascular disease. 4. cognitive changes: He was explained her poor quality sleep from any source can impact cognition as he is reporting. 5. Class 1Obesity: He was explained the relationship between sleep and metabolism. Plan: 1. An APAP trial will be scheduled. 2. He was instructed to avoid driving or operating heavy machinery if drowsy. He was advised that if he does note drowsiness when driving to remove himself to a safe area and take a 20-02-lrzkzo nap and only continue driving if he feels fully alert. 3. He was encouraged to engage in regular exercise as tolerated. 4. He was advised to maintain regular follow-up with Dr. Osborn. 5. He will be set up with a PAP device after the APAP trial. [email or web address] Not available 12/02/2020 16:39:53 12/25/2020 12/25/2020 1. Obstructive sleep apnea (QUYEN): Mr. Ricketts was commended on his excellent initial usage of CPAP therapy. I did review the download report which shows that his overall adherence was quite great except for the last 1 week where he has been not putting the mask back on after he wakes up after his initial arousal after 2 hours. I did review with him that he is having mask leak issues with using the air Touch 20 full face mask which I suspect likely needs better adjustment I did safety counselor him on how to properly adjust the mask but I also did review with him that he still is having certain nights res having an elevated hypopnea index which makes me suspect that he could still could be having REM related sleep apnea occurring. I did advise that we increase his pressure from 9 cm to 10 cm. 2. 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 3. Hypertension: He is following closely with Dr. Osborn. 4. cognitive changes: He should note improvement in his cognition with improved quality sleep by treating his sleep apnea. 5. Class 1 Obesity: He was explained the relationship between sleep and metabolism. Plan: 1. Continue CPAP therapy but I did raise his pressure remotely to 10 cm to better improve his sleep maintenance. 2. He was advised on how to properly adjust his full mask as well as how to properly apply it. I did send a message for to be contacted to obtain new supplies. 3. He was advised a trial of REM fresh melatonin at 6:00 a.m. when he returns home from work to help improve his sleep initiation. 4. He was instructed to avoid driving or operating heavy machinery if drowsy. He was advised that if he does note drowsiness when driving to remove himself to a safe area and take a 04-20-alqwvq nap and only continue driving if he feels fully alert. 5. He was encouraged to engage in regular exercise as tolerated. 6. He was advised to maintain regular follow-up with Dr. Osborn. 7. He was advised to follow-up in about 4 weeks for his next CPAP compliance follow-up visit. Not available 12/25/2020 13:52:40 Plan of Treatment Reminders Order Date Submit Date Provider Last Modified By Organization Details Last Modified Time Details Appointments None record ed. Lab None record ed. Referral None record ed. Procedures None record ed. Surgeries None record ed. Imaging None record ed. Medication Orders None record ed. Patient TargetsNo targets recorded. Patient InstructionsNo instructions recorded. Reason for Referral None Reported. Results Created Date Observation Date Name Description Value Unit Range Abnormal Flag Note LastModifiedBy Organization Detail LastModifiedTime 10/28/19 21 10/26/2020 split night sleep study * No observ ation record ed. [email or web address] Not Available 2020 14:50:57 Result Notes None recorded. Problems Name Problem SNOMED Code Status Onset Date Resolution Date Notes Provider Name and Address Organization Details Recorded Time Obstructive sleep apnea syndrome 29325593 Active 2020 ( 1 at [facility]): AHI = 22.6 / supine AHI = 61.5 / O2 fabricio = 87%; lack of sleep onset with CPAP. MD [address], [place], [address], [facility] - [facility] 14:51:53 Problem Notes None recorded. Procedures Surgical History Date Name Laterality Status Provider Name and Address Organization Details Recorded Time CPAP Pressure Change completed MD [address], [place], [address], [facility] - [facility] 12/25/2020 13:46:03 primary fusion of cervical spine completed MD [address], [place], [address], [facility] - [facility] 12/23/2020 14:53:20 Imaging Results None recorded. Procedure Notes None recorded. Medical Equipment None Reported. Allergies No known drug allergies Medications Name Sig Start Date Stop Date Status Note LastModified by Organization Details LastModified Time fluoxetine 40 mg capsule TAKE 1 CAPSULE BY MOUTH EVERY DAY active Not Available Not Available No t Available cyclobenzapr ine 10 mg tablet TK 1 T PO BID PRF MUSCLE SPASM active Not Available Not Available No t Available amoxicillin 500 mg capsule TAKE 4 CAPSULES BY MOUTH 1 HOUR BEFORE PROCEDURE active Not Available Not Available No t Available ibuprofen 800 mg tablet TAKE 1 TABLET BY MOUTH EVERY 6 HOURS NEEDED PAIN active Not Available Not Available Not Available tizanidine 4 mg tablet TAKE 1 TABLET BY MOUTH THREE TIMES DAILY FOR MUSCLE SPASMS active Not Available Not Available No t Available hydrocodone 5 mg-acetamino phen 325 mg tablet TAKE 1-2 TABLETS BY MOUTH EVERY 6 HOURS NEEDED active Not Available Not Available No t Available ondansetron HCl 4 mg tablet TK 1 T PO QD PRN active Not Available Not Available No t Available clindamycin HCl 150 mg capsule active Not Available Not Available Not Available hydrocodone 10 mg-acetamino phen 325 mg tablet TAKE 1 TABLET BY MOUTH FOUR TIMES DAILY active Not Available Not Available Not Available butalbital-a cetaminophen -caffeine 50 mg-325 mg-40 mg tablet TK 1 T PO EVERY 4 HOURS PRN FOR HEADACHE active Not Available Not Available No t Available amoxicillin 500 mg tablet TAKE 1 TABLET BY MOUTH THREE TIMES DAILY UNTIL GONE active Not Available Not Available N ot Available oxycodone-ac etaminophen 5 mg-325 mg tablet TAKE 1 TO 2 TABLETS BY MOUTH EVERY 6 HOURS NEEDED active Not Available Not Available No t Available hydromorphon e 2 mg tablet TAKE 1 TABLET BY MOUTH FOUR TIMES DAILY FOR CHRONIC PAIN active Not Available Not Available No t Available oxycodone-ac etaminophen 10 mg-325 mg tablet active Not Available Not Available Not Available dicyclomine 20 mg tablet TAKE 1 TABLET BY MOUTH FOUR TIMES DAILY FOR 7 DAYS active Not Available Not Available N ot Available hydrocodone 7.5 mg-acetamino phen 325 mg tablet TAKE 1 TABLET BY MOUTH EVERY 6 HOURS NEEDED FOR PAIN active Not Available Not Available No t Available etodolac 400 mg tablet TAKE 1 TABLET BY MOUTH TWICE DAILY NEEDED active Not Available Not Available No t Available ergocalcifer ol (vitamin D2) 1,250 mcg (50,000 unit) capsule TAKE 1 CAPSULE BY MOUTH EVERY WEEK active Not Available Not Available No t Available oxycodone-ac etaminophen 7.5 mg-325 mg tablet TK 1 T PO ONCE TO BID PRF PAIN active Not Available Not Available No t Available methylpredni solone 4 mg tablets in a dose pack FOLLOW PACKAGE DIRECTIONS active Not Available Not Available N ot Available ondansetron 4 mg disintegrati ng tablet DISSOLVE 1 TABLET BY MOUTH EVERY 8 HOURS FOR 5 DAYS NEEDED FOR NAUSEA OR VOMITING active Not Available Not Available No t Available dicyclomine 10 mg capsule TAKE 2 CAPSULES BY MOUTH FOUR TIMES DAILY active Not Available Not Available Not Available aripiprazole 5 mg tablet active Not Available Not Available Not Available rosuvastatin 20 mg tablet TAKE 1 TABLET BY MOUTH EVERY DAY IN THE EVENING active Not Available Not Available No t Available pregabalin 25 mg capsule TK 1 C PO TID active Not Available Not Available No t Available losartan 100 mg-hydrochlo rothiazide 12.5 mg tablet TAKE 1 TABLET BY MOUTH DAILY BEFORE BREAKFAST active Not Available Not Available No t Available oxycodone 10 mg tablet active Not Available Not Available No t Available Narcan 4 mg/actuation nasal spray active Not Available Not Available Not Available Vitals None Recorded Social History Question Answer Notes LastModified by Organizat ion Details LastModified Time Tobacco Smoking Status Never Smoker Vicki Aragon MD [address],[place] [address], [place], [address], [facility] - [facility] 12/23/2020 14:52:57 What Is Your Level Of Caffeine Consumption? Heavy [email or web address] Information not available 12/23/2020 What Type Of Diet Are You Following? REGULAR Information not available 12/23/2020 How Many Children Do You Have? 2 [email or web address] Information not available 12/23/2020 What Is Your Relationship Status? Domestic Partner [email or web address] Information not available 12/25/2020 Do You Use Your Seat Belt Or Car Seat Routinely? Yes [email or web address] Information not available 12/23/2020 Has Tobacco Cessation Counseling Been Provided? No [email or web address] Information not available 12/23/2020 Sex: Unknown Functional Status Question Answer Note LastModified by Organizat ion Details LastModified Time Do you use any illicit or recreational drugs? No [email or web address] Information not available 12/23/2020 What is your level of alcohol consumption? None Information not available 12/23/2020 Are you currently employed? 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 Occasional [email or web address] Information not available 12/23/2020 Mental Status None recorded. Family History Relationship Description Onset Age of this Age Resolved Age Notes LastModified by Organization Details LastModified Time Father Hypertensive disorder [email or web address] Not available 2020 14:52:09 Father Hypercholest erolemia [email or web address] Not available 2020 14:52:15 Mother Hypertensive disorder [email or web address] Not available 2020 14:52:09 Mother Hypercholest erolemia [email or web address] Not available 2020 14:52:16 Brother Obstructive sleep apnea syndrome [email or web address] Not available 2020 14:52:25 Medical History Condition Response Obstructive sleep apnea Y Chronic pain syndrome Y Obesity Y Hypertension Y Past Encounters Encounter ID Performer Location Encounter Start Date Encounter Closed Date Diagnosis/Indication Diagnosis SNOMED-CT Code Diagnosis ICD10 Code Diagnosis Note [id number] Philip Soto NP [facility] [address] [place] [address] 11/06/2020 11:08:51 11/06/2020 11:36:15 Obstructive sleep apnea of adult 6486637893 103 G47.33 Hypersomnia 25260275 G47 .10 Insomnia 441879054 G47.0 1 Fatigue 34528444 R53.83 Snoring 29249242 R06.83 [id number] MD Kevin Che e [facility] [address] [place] [address] 12/25/2020 13:23:33 12/25/2020 13:48:42 Obstructive sleep apnea syndrome 76799585 G47.33 Obstructiv e sleep apnea of adult 2842663637 103 G47.33 Hypersomnia 24252188 G47 .10 Insomnia 773485085 G47.0 1 Fatigue 79530739 R53.83 Snoring 01238485 R06.83 Health Concerns Section Related Observation LastModified by Organization Detai ls LastModified Time None Recorded Concern Status LastModified by Organization Details LastModified Time None Recorded Advance Directives Directive None Recorded Payers Insurance Date Sequence Insurance Name Policy Number Policy Sarabia Covered Member ID Sarabia Member ID Guarantor Name 01/01/2022 2 AECHIVO Ricketts [id number] Ilia Ricketts 10/26/2020 2 [place] Denisse Ricketts [id number] Ilia Ricketts 01/01/2022 1 [place] [id number] Denisse Ricketts [id number] Ilia Ricketts 01/01/2022 1 [place] ([place] [id number] Ilia Ricketts [id number] Ilia Ricketts Notes Date Note Type Note Provider Name and Address Organization Details Recorded Time 11/06/2020 text/html Mr. Ricketts is a ve ry pleasant 55-year-old male with a past medical history significant for hypertension, chronic neck pain, and class 1 obesity. He had a split study done on 10/26/2020 and presents today for the test follow-up. To recap, he has history of chronic snoring and witnessed apnea. He also has been waking up 6-7 times a night with feelings of shortness of breath and nocturia. He reported frequent dream recollection. He reported having dry mouth and non restorative sleep. He was concerned that he has underlying obstructive sleep apnea. 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 and 4:00 p.m.. He reported that even on his nights off he still maintained the same sleep schedule. He reported having significant daytime fatigue and hypersomnolence but avoided napping. He reported being drowsy during sedentary situations including quite movements at work but he was not falling asleep. He felt that his short-term memory and concentration could be better. He stated that when he was visiting his brother in [place] who uses CPAP therapy, he borrowed the spare unit and slept with it for night and felt that he slept actually good thus making him realize that he very likely has underlying sleep apnea. He presented for a split study on 10/26/2020 which revealed the presence of moderately severe obstructive sleep apnea with baseline AHI of 22.6/hr associated with severe supine related QUYEN ( Supine Index= 61.5/HR) and significant hypoxemia with lowest SpO2 of 87%. A trial of CPAP therapy was initiated that his QUYEN was not well treated secondary to inability to initiate sleep secondary to pain and discomfort on his back. A trial of APAP therapy for 1 week to determine affix pressure setting is advised. Today reports that he indeed had difficulty falling and maintaining sleep. He states that he just can not get comfortable. He feels that if he did fell asleep that he only has been drifting on and off. His current [place] sleepiness score was not completed during this telemedicine encounter. Philip trevino, [facility] 12/02/2020 16:40:40 12/25/2020 text/html Mr. Ricketts is a ve ry pleasant 55-year-old male with a past medical history significant for hypertension, chronic neck pain, class 1 obesity, and diagnosed with moderately severe obstructive sleep apnea (QUYEN) on 10/26/2020 presents for his initial CPAP compliance follow up visit. He reports today that since he was last seen in clinic he has been utilizing CPAP therapy on a nightly basis. He does note that it is taking him a bit longer initiate sleep as is taking closer an hour to fall asleep as he gets to bed around 7-730 a.m. after getting home from work at 6:00 a.m.. He does note that he still is waking up several times throughout the night but he is waking up about half as much as he previously was he is now waking 3-4 times per night almost on average every 2 hours. He does note that he has been taking the mask off and not putting it back on after he wakes up after the 1st 2 hours of sleep and that in turn has resulted in his overall usage being on average 2 hours over the last 1 week. He does confirm that he is feeling a bit better rested when he wakes in the evening after sleeping and he has been told that he is not snoring with CPAP therapy which he is happy about. He does confirm that he is not having issues with dry mouth or nasal congestion headaches when he wakes morning. He also confirms that he is not napping and he has noted that he is not dozing off unintentionally during the daytime as he previously was. He otherwise denies any other issues at this time but he does note that he has not been adjusting the top straps on his mask either. Sleep-Wake Schedule: Nighttime routine: He typically watches TV or reads prior to bedtime. Total amount of time in bed: 9-10 hours Total amount of time asleep: 3 hours Weekday bedtime: 7-730 am Weekday wake time: 4-5 pm and feels unrefreshed Weekend bedtime: 7-730 am Weekend wake time: 4-5 pm and feels unrefreshed Number of arousals during the night: Typically wakes up at least 3-4 times per night secondary to nocturia. He is a very restless sleeper. How long are you awake in total during the night?: How long does it take for you to initiate sleep?: within 30-60 minutes Do you nap? No How many days a week do you nap? What time of day? How long are the naps? Objective Sleep Metrics: PAP Download Data: (11/20/20-12/24/20): days with device usage = 100%; avg nightly usage = 4:42 hours; % of nights with usage >/= 4 hours = 63%; estimated AHI = 3.7; CPAP = 9 cm. Vicki Aragon MD [address],[place] [address], [place], [address], [facility] - [facility] 12/25/2020 13:52:51
--- OUTSIDE RECORDS SUMMARY | 2024-09-16 06:59 | XMS_ITS ---
Author Organization [facility] [employer] Address [address] [place] [address] Care Team Providers Care Bookkeeping Assistant Name Role Phone Deepak Plunkett MD Primary Care Provider Unavail able Brett Bustosistin Unavailable [phone] Tay Guzmán Unavailable [phone] REASON FOR VISIT invegga 819mg: PT DID NOT GET HIS INJECTION TODAY Medications Medication SIG (Take, Route, Frequency, Duration) Notes Start Date End Date Status Vilazodone HCl 20 MG 1 tablet once a day for 30 days Orally Once a day for 30 days PA approved 07/26/2024 Active Vitamin D (Ergocalciferol) 1.25 MG (43705 UT) TAKE 1 CAPSULE BY MOUTH ONCE WEEKLY ON MONDAYS for Active Caplyta 21 MG 1 capsule Orally Once a day for 30 days samples given, do not fill/send 06/28/2024 Not-Taking Invega Trinza 819 MG/2.63ML as directed Intramuscular every 12 weeks dispense to office 07/16/2024 Active Jardiance 25 MG 1 tablet Oral for 30 days Active Albuterol Sulfate HFA 108 (90 Base) MCG/ACT Inhalation for 75 Days Active traZODone HCl 100 MG 1-2 tabs at bedtime Oral daily for 30 days Active metFORMIN HCl ER 500 MG TAKE 1 TABLET BY MOUTH TWICE DAILY BEFORE BREAKFAST AND DINNER. Oral for 90 Days Active Rosuvastatin Calcium 20 MG Oral for 90 Days Active Social History Sex Assigned At : Social History Observation Description Sex Assigned At Male Encounters Encounter Location Date Provider Diagnosis [facility] [address] [place] [address] 08/13/2024 Tay Guzmán Plan Of Treatment Next Appt Details Provider Name:Sarah jin, 09/17/2024 09:30:00 AM, [address], [address], [place], [address], Progress Notes * COURTNEY REECEDOB:1965 (59 yo M)Acc No.[id number]:08/13/2024 Progress Note Patient: COURTNEY OSCAR Provider: Clinton GUZMÁN MD :1965 A ge:58 Y S ex:Male Date:08/13/2024 Address:[facility] Pcp:Deepak Plunkett MD Subjective: * Chief Complaints: * 1 . invegga 819mg: PT DID NOT GET HIS INJECTION TODAY. * Active Problem List F25.1 Schizoaffective diso rder, depressive type Onset Date:05/29/2023Modified On:10/01/2023/U Status:confirmed F41.1 Generalized anxiety disorder Onset Date:05/29/2023Modified On:10/01/2023/U Status:confirmed E55.9 Vitamin D deficiency , unspecified Onset Date:05/29/2023Modified On:10/01/2023U Status:confirmed I10 Benign essential HTN Onset Date:04/22/2023Modified On:05/12/2024/U Status:confirmedClinical Status:Active Z79.899 Other longterm (cur rent) drug therapy Modified On:04/03/2024/U Status:confirmed F51.04 Chronic insomnia Onset Date:11/22/2015Modified On:05/12/2024U Status:confirmedClinical Status:Active E78.2 Mixed hyperlipidemia Onset Date:12/21/2017Modified On:05/12/2024/U Status:confirmedClinical Status:Active * Medical History: * Medications: T aking traZODone HCl 100 MG Tablet 1-2 tabs at bedtime Oral daily , Taking Rosuvastatin Calcium 20 MG Tablet Oral , Taking metFORMIN HCl ER 500 MG Tablet Extended Release 24 Hour TAKE 1 TABLET BY MOUTH TWICE DAILY BEFORE BREAKFAST AND DINNER. Oral , Taking Albuterol Sulfate HFA 108 (90 Base) MCG/ACT Aerosol Solution Inhalation , Taking Jardiance 25 MG Tablet 1 tablet Oral , Taking Invega Trinza 819 MG/2.63ML Suspension Prefilled Syringe as directed Intramuscular every 12 weeks dispense to office, Taking Vitamin D (Ergocalciferol) 1.25 MG (37877 UT) Capsule TAKE 1 CAPSULE BY MOUTH ONCE WEEKLY ON MONDAYS , Taking Vilazodone HCl 20 MG Tablet 1 tablet once a day for 30 days Orally Once a day , Notes to Pharmacist: PA approved, Not-Taking Caplyta 21 MG Capsule 1 capsule Orally Once a day , Notes to Pharmacist: samples given, do not fill/send Objective: * Vitals: Therapeutic Interventions: Assessment: Plan: * Treatment: * Billing Information: * Visit Code: * Procedure Codes: * Electronic signature of Rosalio Guzmán MD on 09/16/2024 at 06:59 AM CDT Sign off status: Pending * Provider: Clinton GUZMÁN MD Date: 0 08/13/2024 Generated for Erika gottlieb/Iveth/Florencia on: 09/16/2024 06:59 AM CDT
--- OUTSIDE RECORDS SUMMARY | 2024-09-16 06:59 | XMS_ITS | Data Portability ---
Author Organization [place] - [facility] Address [address] [place] [address] Care Team Providers Care Automatic Door Mechanic Name Role Phone GORDY HIGHTOWER Primary Care Provider Assessment No assessment recorded. Plan of Treatment Reminders Order Date Submit Date Provider Last Modified By Organization Details Last Modified Time Details Appointments None recorded. Lab None recorded. Referral None recorded. Procedures None recorded. Surgeries cardiac catheteriz ation (SURG) 2017 018 [email or web address] Not available 8 11:26:43 Imaging electrocar diogram 2017 018 [email or web address] In-House Results, For Internal Use Only, Do Not Delete/merge, [id number] 15:32:15 Medication Orders isosorbide mononitrat e ER 30 mg tablet,ext ended release 24 hr 2017 018 INTERFACE [id number], [address] [place], [address], 8 15:08:44 Patient TargetsNo targets recorded. Patient InstructionsNo instructions recorded. Reason for Referral None Reported. Results Created Date Observation Date Name Description Value Unit Range Abnormal Flag Note LastModifiedBy Organization Detail LastModifiedTime 12/24/19 18 elect rocar diogr am No observ ation record ed. [email or web address] Not Available 2017 14:50:34 Result Notes None recorded. Procedures Surgical History Date Name Laterality Status Provider Name and Address Organization Details Recorded Time 01/02/20 18 CARDIAC CATHETERIZATION (SURG) completed Janae Zaman [facility] 01/12/2018 11:26:49 Neck spine disk surgery completed Nadira Lopez [facility] 12/23/2017 14:38:12 Imaging Results None recorded. Procedure Notes None recorded. Medical Equipment None Reported. Allergies No known drug allergies Medications Name Sig Start Date Stop Date Status Note LastModified by Organization Details LastModified Time fluoxetine 40 mg capsule active Not Available Not Available Not Available cyclobenzap rine 10 mg tablet active Not Available Not Available Not Available carvedilol 6.25 mg tablet active Not Available Not Available Not Available prednisone 10 mg tablet active Not Available Not Available Not Available tizanidine 2 mg tablet active Not Available Not Available Not Available divalproex 250 mg tablet,dari yed release active Not Available Not Available Not Available alprazolam 1 mg tablet active Not Available Not Available Not Available chlorzoxazo ne 500 mg tablet 12/23 completed Not Available Not Available Not Available isosorbide mononitrate ER 30 mg tablet,exte nded release 24 hr Take 1 tablet every day by oral route for 30 days. active Not Available Not Available No t Available olanzapine 10 mg tablet active Not Available Not Available Not Available divalproex 500 mg tablet,dari yed release active Not Available Not Available Not Available tramadol 50 mg tablet active Not Available Not Available No t Available oxycodone-a cetaminophe n 5 mg-325 mg tablet active Not Available Not Available No t Available alprazolam 0.5 mg tablet active Not Available Not Available Not Available lorazepam 2 mg tablet 12/23 completed Not Available Not Available Not Available lithium carbonate 300 mg capsule active Not Available Not Available Not Available nitroglycer in 0.[address] 1 tablet as needed by sublingua l route for 1 day. active Not Available Not Available No t Available gabapentin 300 mg capsule active Not Available Not Available Not Available hydroxyzine HCl 25 mg tablet active Not Available Not Available Not Available oxycodone-a cetaminophe n 7.5 mg-325 mg tablet 12/23 completed Not Available Not Available Not Available fluoxetine 20 mg capsule Take 1 capsule every day by oral route. active Not Available Not Available No t Available aripiprazol e 5 mg tablet Take 1 tablet every day by oral route. active Not Available Not Available No t Available rosuvastati n 20 mg tablet active Not Available Not Available Not Available Lyrica 75 mg capsule 12/23 completed Not Available Not Available Not Available Lyrica 150 mg capsule Take 1 capsule every day by oral route. active Not Available Not Available No t Available losartan 100 mg-hydrochl orothiazide 12.5 mg tablet Take 1 tablet every day by oral route. active Not Available Not Available No t Available Vitals Date Recorded Body height Body mass index (BMI) Body weight Heart rate Oxygen saturation Oxygen saturation in Arterial blood by Pulse oximetry Systolic blood pressure Diastolic blood pressure Systolic blood pressure Diastolic blood pressure Provider Name and Address Organization Details Last Updated DateTime 8 187.96 cm 28.8 kg/m2 666511. 69 g 79 /min 98 % 98 % 128 mm[Hg] 82 mm[Hg] 126 mm[Hg] 84 mm[Hg] Nadira Lopez [facility] 8 14:25:32 Social History Question Answer Notes LastModified by [employer] Details LastModified Time Tobacco Smoking Status Current Every Day Smoker Nadira Lopez [facility] 12/23/2017 14:37:20 What Is Your Level Of Caffeine Consumption? Moderate 2 Cups Of Coffee In The Morning. Soda And Tea Daily Information not available 12/23/2017 Are You A Jainism? No Information not available 12/23/2017 Are You Willing To Accept Blood Products? Yes Information not available 12/23/2017 Smoking - How Many Years Did/have You Smoked 20 Information not available 12/23/2017 Illicit Drugs No Informati on not available 12/23/2017 Marital Status Information not available 12/23/2017 What Was The Date Of Your Most Recent Tobacco Screening? 12/23/2017 Information not available 10/21/2018 How Much Tobacco Do You Smoke? 1 PPD Information not available 12/23/2017 How Many Years Have You Smoked Tobacco? 20 Information not available 12/23/2017 Sex: Unknown Functional Status Question Answer Note LastModified by [employer] Details LastModified Time What is your level of alcohol consumption? 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 Family History Relationship Description Onset Age of this Age Resolved Age Notes LastModified by Organization Details LastModified Time Brother Heart disease Not available 19:23:56 Brother Hyperlipidem ia Not available 19:24:21 Brother Hypertensive disorder Not available 19:24:42 Father Heart disease Not available 19:23:56 Father Hyperlipidem ia Not available 19:24:21 Father Hypertensive disorder Not available 19:24:42 Mother Hyperlipidem ia Not available 19:24:21 Mother Hypertensive disorder Not available 19:24:42 Medical History Condition Response Hyperlipidemia Y GERD/Reflux Y Hypertension Y Past Encounters Encounter ID Performer Location Encounter Start Date Encounter Closed Date Diagnosis/Indication Diagnosis SNOMED-CT Code Diagnosis ICD10 Code Diagnosis Note [id number] Tj Talley MD Main Office [address] [place] [phone] 12/23/2017 13:43:49 12/23/2017 15:32:15 Chest pain 08528757 R07.9 Typical anginal symptoms with significan t risk factors for coronary artery disease: active smoking, strong family history.Di scussed risks/bene fits of proceeding with diagnostic cardiac catheteriz ation and he is amenable. Angina pectoris [id number] 0 I20.9 Typical anginal symptoms with significan t risk factors for coronary artery disease: active smoking, strong family history. Discussed risks/bene fits of proceeding with diagnostic cardiac catheteriz ation and he is amenable.W ill proceed with diagnostic left heart cardiac catheteriz ation to assess for obstructiv e coronary artery disease.Wi ll at least start on long-actin g nitroglyce rin for now. Health Concerns Section Related Observation LastModified by Organization Detai ls LastModified Time None Recorded Concern Status LastModified by Organization Details LastModified Time None Recorded Advance Directives Directive None Recorded Payers Insurance Date Sequence Insurance Name Policy Number Policy Sar[place]ia Covered Member ID Sarabia Member ID Guarantor Name 12/09/2018 1 [facility] [id number] Dorian Ricketts [id number] Dorian Ricketts 12/09/2018 1 [facility] [id number] Denisse Ricketts [id number] Dorian Ricketts Notes Date Note Type Note Provider Name and Address Organization Details Recorded Time 12/23/2017 text/html Mr. Ricketts is a 52 year old gentleman who presents for his initial follow-up post-hospitalization for chest pains. His , [place], is again present on today's office visit. Since he left the hospital, he's had to use SL NTG at least 4 times for recurrent anginal symptoms: sub-sternal, worse with exertion, relieved somewhat with rest but 100% with SL NTG tablets he was discharged on. He continues to smoke but is at least trying to cut back. He has significant family history for CAD. We discussed risks/benefits of diagnostic cardiac catheterization, both he & his verbalized understanding and agreement, and he is amenable to proceed. Hospitalization notes: ASSESSMENT Chest pain -- has both typical & atypical features but pt with risk factors for CAD HTN Hyperlipidemia -- he doesn't regularly f/u w/ PCP for surveillance Lipid check Pre-DM (Hgb A1c = 6.6) GERD ADHD Active smoker + FHx for CAD (smoker father w/ CAD/CABG in his 70's, maternal GM w/ [place]); brother w/ sinus node dysfunction. RECOMMENDATIONS Serial Cardiac enzymes x 3 or until plateaus/downtrends. Check Echocardiogram Will proceed with a Pharmacologic nuclear stress test as part of his ischemic work-up. Continue Telemonitor for next 24-48 hrs & can d/c IF no dysrhythmias recorded. He may need out-pt Holter/Event Monitor +/- Loop Recorder if necessary Replete electrolytes to maintain K+ >= 4.0 and/or Mg2+ >= 2.0 Check fasting lipid profile Continue all of his usual out-pt medications and will start ASA if he's not on it already. Smoking cessation advised. 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 [id number], [place], [address], [facility] 01/01/2018 11:01:30
--- OUTSIDE RECORDS SUMMARY | 2024-09-16 06:59 | XMS_ITS | Clinical Summary ---
Author Organization [facility] Address [address] [place] [address] Care Team Providers Care Splitting Machine Feeder Name Role Phone Unavailable Primary Care Provider Unavailabl e Source Comments [facility],non-owned Affiliates and Associated Physician Practices is amultiple site organization consisting of ambulatory clinics and hospital sitesin [place], [place], [place] and [place]. This disclosure is being madepursuant to the Care Everywhere program and may not contain all information available regarding this patient. Last updated 17.[facility] Social History Tobacco Use Types Packs/Day Years Used Date Smoking Tobacco: Never Assessed Sex and Gender Information Value Date Recorded Sex Assigned at Not on file Legal Sex Male 1:32 PM CDT Gender Identity Not on file Sexual Orientation Not on file Plan of Treatment Health Maintenance Due Date Last Done Comments COLOGUARD (AGES 45-75) - COL ON CA SCREENING 1966 COLON MONITORING 1966 COLONOSCOPY - COLON CA SCREENING 1966 CT COLONOGRAPHY - COLON CA SCREENING 1966 Colorectal Cancer Screening 1966 FIT - COLON CA SCREENING 1966 FLEX SIG - COLON CA SCREENING 1966 LIPID TESTING 1966 HIV SCREENING 1981 HEPATITIS C SCREENING 08/22/1984 DTAP/TDAP/TD VACCINES (1 - Tdap) 1985 HEPATITIS B VACCINE (1 of 3 - 19+ 3-dose series) 1985 PNEUMOCOCCAL VACCINE 50+ (1 of 1 - PCV) 2016 ZOSTER VACCINE (1 of 2) 2016 COVID-19 VACCINE (2023-2 5 season) 2023 DEPRESSION SCREENING 03/31/2024 INFLUENZA VACCINE (Season Ended) 2024 HIB VACCINE Aged Out No longer eligi ble based on patient's age to complete this topic HPV VACCINE Aged Out No longer eligi ble based on patient's age to complete this topic MENINGOCOCCAL (Group B) VACC INE SHARED DECISION-MAKING Aged Out No longer eligibl e based on patient's age to complete this topic MENINGOCOCCAL GROUPS A/C/Y/W VACCINE Aged Out No longer eligible b ased on patient's age to complete this topic Insurance AETNA AETNA
--- OUTSIDE RECORDS SUMMARY | 2024-09-16 06:59 | XMS_ITS | Patient Health Record ---
Author Organization [facility] Address [address] [place] [address] Care Team Providers Care Learning Support Services Director Name Role Phone Deepak Plunkett MD Primary Care Provider Unavail able Sarah Bustos Unavailable [phone] Tay Finley Unavailable [phone] Ginette Childs Unavailable [phone] Allergies No Known Allergies Reason For Referral No Information Medications Medication SIG (Take, Route, Frequency, Duration) Notes Start Date End Date Status Vilazodone HCl 20 MG 1 tablet once a day for 30 days Orally Once a day for 30 days PA approved 07/26/2024 Active Vitamin D (Ergocalciferol) 1.25 MG (97727 UT) TAKE 1 CAPSULE BY MOUTH ONCE WEEKLY ON MONDAYS for 84 Active Caplyta 21 MG 1 capsule Orally Once a day for 30 days samples given, do not fill/send 06/28/2024 Not-Taking Albuterol Sulfate HFA 108 (90 Base) MCG/ACT Inhalation for 75 Days Active Vilazodone HCl 40 MG 1 tablet every morning Oral Once a day for 30 days 08/13/2024 Active Invega Trinza 819 MG/2.63ML as directed Intramuscular every 12 weeks dispense to office 07/16/2024 Active Jardiance 25 MG 1 tablet Oral for 30 days Active traZODone HCl 100 MG 1-2 tabs at bedtime Oral daily for 30 days Active metFORMIN HCl ER 500 MG TAKE 1 TABLET BY MOUTH TWICE DAILY BEFORE BREAKFAST AND DINNER. Oral for 90 Days Active Rosuvastatin Calcium 20 MG Oral for 90 Days Active Immunizations Vaccine Route Administration Date Status Comme nts Novel [id number], preservative free Unknown 02/25/2022 Administered Social History Tobacco Use: Social History Observation Description Date Details (start date - stop date) Former Smoker NA - NA Sex Assigned At : Social History Observation Description Sex Assigned At Male Household Question Answer Notes Marital status: Number of adults in household: 3 Tobacco Control (Standard) Question Answer Notes Tobacco use: Former smoker How long has it been since you last smoked? 1-5 years AUDIT-C (Standard) Question Answer Notes Did you have a drink containing alcohol in the p ast year? No Section Notes: Social History Substance Use Do you or have you ever smoked tobacco?: Former smoker How much tobacco do you smoke?: None When did you quit smoking?: 16+ years since last cigarette Do you or have you ever used e-cigarettes or vape?: Current user of electronic cigarettes What was the date of your most recent tobacco screening?: 08/22/2023 Has tobacco cessation counseling been provided?: No What is your level of alcohol consumption?: Moderate How many years have you consumed alcohol?: 0 Do you use any illicit or recreational drugs?: No Which illicit or recreational drugs have you used?: Cocaine Have you used IV drugs?: No What is your level of caffeine consumption?: Occasional Education and Occupation What is the highest grade or level of school you have completed or the highest degree you have received?: High school graduate Are you currently employed?: No Who is your employer?: N/A Marriage and Sexuality What is your relationship status?: Are you sexually active?: No Do you use protection during sex?: Always How many children do you have?: 2 Home and Environment Are there any guns present in your home?: No Lifestyle Do you feel stressed (tense, restless, nervous, or anxious, or unable to sleep at night)?: To some extent Advance Directive Do you have an advance directive?: No Do you have a medical power of [place] attorney?: No Public Health and Travel Have you been to an area known to be high risk for COVID-19?: No Gender Identity and LGBTQ Identity Gender identity: Identifies as Male Assigned sex at : Male First name used: DOMINIK Sexual orientation: Straight or heterosexual Hx of Cocaine use Hx of Cocaine use Hx of Cocaine use Current user of electronic cigarettes Hx of Cocaine use Current user of electronic cigarettes Hx of Cocaine use Social History Substance Use Do you or have you ever smoked tobacco?: Former smoker How much tobacco do you smoke?: None When did you quit smoking?: 16+ years since last cigarette Do you or have you ever used e-cigarettes or vape?: Current user of electronic cigarettes What was the date of your most recent tobacco screening?: 08/22/2023 Has tobacco cessation counseling been provided?: No What is your level of alcohol consumption?: Moderate How many years have you consumed alcohol?: 0 Do you use any illicit or recreational drugs?: No Which illicit or recreational drugs have you used?: Cocaine Have you used IV drugs?: No What is your level of caffeine consumption?: Occasional Education and Occupation What is the highest grade or level of school you have completed or the highest degree you have received?: High school graduate Are you currently employed?: No Who is your employer?: N/A Marriage and Sexuality What is your relationship status?: Are you sexually active?: No Do you use protection during sex?: Always How many children do you have?: 2 Home and Environment Are there any guns present in your home?: No Advance Directive Do you have an advance directive?: No Do you have a medical power of [place] attorney?: No Gender Identity and LGBTQ Identity Gender identity: Identifies as Male Assigned sex at : Male First name used: DOMINIK Sexual orientation: Straight or heterosexual Social History Substance Use Do you or have you ever smoked tobacco?: Former smoker How much tobacco do you smoke?: None When did you quit smoking?: 16+ years since last cigarette Do you or have you ever used e-cigarettes or vape?: Current user of electronic cigarettes What was the date of your most recent tobacco screening?: 08/22/2023 Has tobacco cessation counseling been provided?: No What is your level of alcohol consumption?: Moderate How many years have you consumed alcohol?: 0 Do you use any illicit or recreational drugs?: No Which illicit or recreational drugs have you used?: Cocaine Have you used IV drugs?: No What is your level of caffeine consumption?: Occasional Education and Occupation What is the highest grade or level of school you have completed or the highest degree you have received?: High school graduate Are you currently employed?: No Who is your employer?: N/A Marriage and Sexuality What is your relationship status?: Are you sexually active?: No Do you use protection during sex?: Always How many children do you have?: 2 Home and Environment Are there any guns present in your home?: No Advance Directive Do you have an advance directive?: No Do you have a medical power of [place] attorney?: No Gender Identity and LGBTQ Identity Gender identity: Identifies as Male Assigned sex at : Male First name used: DOMINIK Sexual orientation: Straight or heterosexual Social History Substance Use Do you or have you ever smoked tobacco?: Former smoker How much tobacco do you smoke?: None When did you quit smoking?: 16+ years since last cigarette Do you or have you ever used e-cigarettes or vape?: Current user of electronic cigarettes What was the date of your most recent tobacco screening?: 08/22/2023 Has tobacco cessation counseling been provided?: No What is your level of alcohol consumption?: Moderate How many years have you consumed alcohol?: 0 Do you use any illicit or recreational drugs?: No Which illicit or recreational drugs have you used?: Cocaine Have you used IV drugs?: No What is your level of caffeine consumption?: Occasional Education and Occupation What is the highest grade or level of school you have completed or the highest degree you have received?: High school graduate Are you currently employed?: No Who is your employer?: N/A Marriage and Sexuality What is your relationship status?: Are you sexually active?: No Do you use protection during sex?: Always How many children do you have?: 2 Home and Environment Are there any guns present in your home?: No Lifestyle Do you feel stressed (tense, restless, nervous, or anxious, or unable to sleep at night)?: To some extent Advance Directive Do you have an advance directive?: No Do you have a medical power of [place] attorney?: No Gender Identity and LGBTQ Identity Gender identity: Identifies as Male Assigned sex at : Male First name used: DOMINIK Sexual orientation: Straight or heterosexual Social History Substance Use Do you or have you ever smoked tobacco?: Former smoker How much tobacco do you smoke?: None When did you quit smoking?: 16+ years since last cigarette Do you or have you ever used e-cigarettes or vape?: Current user of electronic cigarettes What was the date of your most recent tobacco screening?: 08/22/2023 Has tobacco cessation counseling been provided?: No What is your level of alcohol consumption?: Moderate How many years have you consumed alcohol?: 0 Do you use any illicit or recreational drugs?: No Which illicit or recreational drugs have you used?: Cocaine Have you used IV drugs?: No What is your level of caffeine consumption?: Occasional Education and Occupation What is the highest grade or level of school you have completed or the highest degree you have received?: High school graduate Are you currently employed?: No Who is your employer?: N/A Marriage and Sexuality What is your relationship status?: Are you sexually active?: No Do you use protection during sex?: Always How many children do you have?: 2 Home and Environment Are there any guns present in your home?: No Lifestyle Do you feel stressed (tense, restless, nervous, or anxious, or unable to sleep at night)?: To some extent Advance Directive Do you have an advance directive?: No Do you have a medical power of [place] attorney?: No Public Health and Travel Have you been to an area known to be high risk for COVID-19?: No Gender Identity and LGBTQ Identity Gender identity: Identifies as Male Assigned sex at : Male First name used: DOMINIK Sexual orientation: Straight or heterosexual Current user of electronic cigarettes Hx of Cocaine use Current user of electronic cigarettes Hx of Cocaine use Social History Substance Use Do you or have you ever smoked tobacco?: Former smoker How much tobacco do you smoke?: None When did you quit smoking?: 16+ years since last cigarette Do you or have you ever used e-cigarettes or vape?: Current user of electronic cigarettes What was the date of your most recent tobacco screening?: 08/22/2023 Has tobacco cessation counseling been provided?: No What is your level of alcohol consumption?: Moderate How many years have you consumed alcohol?: 0 Do you use any illicit or recreational drugs?: No Which illicit or recreational drugs have you used?: Cocaine Have you used IV drugs?: No What is your level of caffeine consumption?: Occasional Education and Occupation What is the highest grade or level of school you have completed or the highest degree you have received?: High school graduate Are you currently employed?: No Who is your employer?: N/A Marriage and Sexuality What is your relationship status?: Are you sexually active?: No Do you use protection during sex?: Always How many children do you have?: 2 Home and Environment Are there any guns present in your home?: No Lifestyle Do you feel stressed (tense, restless, nervous, or anxious, or unable to sleep at night)?: To some extent Advance Directive Do you have an advance directive?: No Do you have a medical power of [place] attorney?: No Public Health and Travel Have you been to an area known to be high risk for COVID-19?: No Gender Identity and LGBTQ Identity Gender identity: Identifies as Male Assigned sex at : Male First name used: DOMINIK Sexual orientation: Straight or heterosexual Social History Substance Use Do you or have you ever smoked tobacco?: Former smoker How much tobacco do you smoke?: None When did you quit smoking?: 16+ years since last cigarette Do you or have you ever used e-cigarettes or vape?: Current user of electronic cigarettes What was the date of your most recent tobacco screening?: 08/22/2023 Has tobacco cessation counseling been provided?: No What is your level of alcohol consumption?: Moderate How many years have you consumed alcohol?: 0 Do you use any illicit or recreational drugs?: No Which illicit or recreational drugs have you used?: Cocaine Have you used IV drugs?: No What is your level of caffeine consumption?: Occasional Education and Occupation What is the highest grade or level of school you have completed or the highest degree you have received?: High school graduate Are you currently employed?: No Who is your employer?: N/A Marriage and Sexuality What is your relationship status?: Are you sexually active?: No Do you use protection during sex?: Always How many children do you have?: 2 Home and Environment Are there any guns present in your home?: No Advance Directive Do you have an advance directive?: No Do you have a medical power of [place] attorney?: No Gender Identity and LGBTQ Identity Gender identity: Identifies as Male Assigned sex at : Male First name used: DOMINIK Sexual orientation: Straight or heterosexual Problems Problem Type SNOMED Code ICD Code Onset Dates Problem Status W/U Status Risk Notes Problem Vitamin D deficiency (57215440) Vitamin D deficiency, unspecified (E55.9) 05/29/19 24 Active confirmed Problem Schizoaffective disorder, depressive type (72582178) Schizoaffective disorder, depressive type (F25.1) 05/29/19 24 Active confirmed Problem Generalized anxiety disorder (73251438) Generalized anxiety disorder (F41.1) 05/29/19 24 Active confirmed Problem Long-term current use of drug therapy (547620934) Other retirement (current) drug therapy (Z79.899) Active confirmed Problem Mixed hyperlipidemia (095691377) Mixed hyperlipidemia (E78.2) 12/22/19 18 Active confirmed Problem Chronic insomnia (351568777) Chronic insomnia (F51.04) 11/22/19 16 Active confirmed Problem Essential hypertension (73587098) Benign essential HTN (I10) 04/22/19 24 Active confirmed Vital Signs Heart Rate 87 /min 08/13/2024 Height-cm 187.96 cm 08/13/2024 Blood pressure diastolic 84 mm Hg 08/13/2024 Weight-kg 106.6 kg 08/13/2024 Height 74.00 in 08/13/2024 Blood pressure systolic 129 mm Hg 08/13/2024 Weight 235 lbs 08/13/2024 BMI 30.17 kg/m2 08/13/2024 Encounters Encounter Location Date Provider Diagnosis [facility] [place] [id number] [address] 09/26/2023 Ginette Childs [facility] [place] [id number] [address] 10/01/2023 Ginette Childs Schizoaffective disorder, depressive type F25.1 ; Generalized anxiety disorder F41.1 ; Insomnia due to other mental disorder F51.05 and Vitamin D deficiency, unspecified E55.9 [facility] [address] [facility] [address] [address] 10/08/2023 Ginette Childs Schizoaffective disorder, depressive type F25.1 ; Generalized anxiety disorder F41.1 ; Insomnia due to other mental disorder F51.05 and Vitamin D deficiency, unspecified E55.9 [facility] [place] [address] [facility] [address] [address] 11/05/2023 Ginette Childs Schizoaffective disorder, depressive type F25.1 ; Generalized anxiety disorder F41.1 ; Insomnia due to other mental disorder F51.05 and Vitamin D deficiency, unspecified E55.9 [facility] [place] [address] 11/05/2023 Tay Finley [address] [facility] [address] [place] [address] 12/03/2023 Ginette Wolmirna Schizoaffective disorder, depressive type F25.1 ; Generalized anxiety disorder F41.1 ; Insomnia due to other mental disorder F51.05 and Vitamin D deficiency, unspecified E55.[address] [facility] [address] [place] [address] 01/06/2024 Ginette Wolosvibhak Schizoaffective disorder, depressive type F25.1 ; Generalized anxiety disorder F41.1 ; Insomnia due to other mental disorder F51.05 and Vitamin D deficiency, unspecified E55.[address] [address] 02/06/2024 Sarah Bustos Schizoaffective disorder, depressive type F25.1 ; Generalized anxiety disorder F41.1 ; Insomnia due to other mental disorder F51.05 ; Vitamin D deficiency, unspecified E55.9 and Benign essential HTN I10 [address] [address] 03/05/2024 Sarahrom Bustos Schizoaffective disorder, depressive type F25.1 ; Generalized anxiety disorder F41.1 ; Insomnia G47.00 ; Vitamin D deficiency, unspecified E55.9 and Benign essential HTN I10 [address] [address] 04/02/2024 Sarahrom Marcosopian Schizoaffective disorder, depressive type F25.1 ; Generalized anxiety disorder F41.1 ; Insomnia due to other mental disorder F51.05 ; Vitamin D deficiency, unspecified E55.9 ; Benign essential HTN I10 and Other retirement (current) drug therapy Z79.[address] [facility] [address] [place] [address] 05/07/2024 Sarahrom Marcosopian Schizoaffective disorder, depressive type F25.1 ; Chronic insomnia F51.04 ; Generalized anxiety disorder F41.1 ; Vitamin D deficiency, unspecified E55.9 ; Benign essential HTN I10 and Other retirement (current) drug therapy Z79.899 [place] [address] [facility] [address] [place] [address] 05/07/2024 Sarahrom Marcosopian Schizoaffective disorder, depressive type F25.1 [place] [address] [facility] [address] [place] [address] 06/04/2024 Sarah Hagopian Schizoaffective disorder, depressive type F25.1 ; Generalized anxiety disorder F41.1 ; Chronic insomnia F51.04 ; Benign essential HTN I10 ; Vitamin D deficiency, unspecified E55.9 and Encounter for screening for depression Z13.[address] [facility] [address] [place] [address] 07/02/2024 Sarahrom Marcosopian Schizoaffective disorder, depressive type F25.1 ; Generalized anxiety disorder F41.1 ; Chronic insomnia F51.04 ; Benign essential HTN I10 ; Vitamin D deficiency, unspecified E55.9 and Encounter for screening for depression Z13.[address] [facility] [address] [place] [address] 07/16/2024 Sarahrom Bustos Schizoaffective disorder, depressive type F25.1 ; Generalized anxiety disorder F41.1 ; Chronic insomnia F51.04 ; Vitamin D deficiency, unspecified E55.9 ; Benign essential HTN I10 ; Encounter for screening for depression Z13.31 and Encounter for screening for cardiovascular disorders Z13.6 [place] [address] [address] 08/13/2024 Sarahrom Marcosopian Schizoaffective disorder, depressive type F25.1 ; Generalized anxiety disorder F41.1 ; Chronic insomnia F51.04 ; Vitamin D deficiency, unspecified E55.9 ; Benign essential HTN I10 and Encounter for screening for depression Z13.31 [place] [address] [facility] [address] [place] [address] 05/24/2024 Sarah Hemantopian Insomnia G47.00 and Insomnia due to other mental disorder F51.05 [place] [address] [facility] [address] [place] [address] 07/21/2024 Sarah Hmeantopian [place] [address] [facility] [address] [place] [address] 07/23/2024 Sarah Bustos Generalized anxiety disorder F41.1 [facility], [facility] [address] [place] [address] 09/18/2023 Ginette Childs [facility], [facility] [address] [place] [address] 02/06/2024 Sarah Bustos [facility], [facility] [address] [facility] [address] [place] [address] 02/24/2024 Sarah Bustos [facility], [facility] [address] [facility] [address] [place] [address] 03/01/2024 Sarah Bustos Insomnia G47.00 and Generalized anxiety disorder F41.1 [facility], [facility] [address] [facility] [address] [place] [address] 04/02/2024 Sarah Bustso [facility], [facility] [address] [facility] [address] [place] [address] 06/08/2024 Sarah Bustos [facility], [facility] [address] [facility] [address] [place] [address] 07/19/2024 Sarah Juli [facility], [facility] [address] [facility] [address] [place] [address] 07/23/2024 Sarah Bustos Generalized anxiety disorder F41.1 Assessments Encounter Date Diagnosis (ICD Code) Assessment Notes Treatment Notes Treatment Clinical Notes Section Notes 03/01/2024 Insomnia (ICD-10 - G47.00) 10/01/2023 Schizoaffective disorder, depressive type (ICD-10 - F25.1) tolerating risperdal, discuss again jameson, sustenna, eventually trinza etc if tolerated and improve, and eventually try to decrease seroquel. They want to cont with this plan, review r/b/se of meds. stop PO risperidone start invega sustenna 234mg injection today by [facility] (used sample) cont seroquel XR 550mg q evening (400+150; several hours before bed)cont seroquel IR 100mg qhs (this helps bedtime anxiety, paranoia, and sleep)total dose 650mg f/u in 1 wk for appt and 2nd injection 156mg HIGHLY recommend counseling notes: *hx substance abuse *non adherence to appts and treatment plan*initially seemed improved with stopping SSRI, less psychosis sx, less anxious*pattern initial improvement with dose change/increase followed by worsening paranoia, anxiety sx (within ~2-3wk time spans).*consider change to vraylar or invega/JAMESON; consider clonidine 10/01/2023 Generalized anxiety disorder (ICD-10 - F41.1) meds as above recommend counseling 06/04/2024 Schizoaffective disorder, depressive type (ICD-10 - F25.1) Dominik Reece presents with ongoing anxiety, auditory and visual hallucinations, paranoia, and sleep disturbances despite current medication regimen including monthly injections and oral medications. Schizophrenia with anxiety Assessment: Patient reports experiencing 8 episodes in the past month, indicating inadequate control of symptoms despite recent increase in injection dosage. Auditory and visual hallucinations persist, particularly at nighttime, manifesting as shadows and mumbles. Anxiety remains a significant concern, often coinciding with paranoia. Sleep is disrupted, relates it to anxiety levels. Current medications, including Seroquel 200 mg and recently completed trial of Trintellix 10 mg, have not provided sufficient symptom relief. Previous trials of clonidine and mirtazapine were also ineffective. Plan: - Discontinue Trintellix 10 mg due to lack of efficacy (note only 4-week trial) - Discontinue trazodone if ineffective (patient to decide) - Initiate Caplyta 10.5 mg PO at bedtime for 1 week - Continue quetiapine 200 mg PO at bedtime for 1 week - After 1 week, increase Caplyta to 21 mg PO at bedtime - After 1 week, decrease quetiapine to 150 mg PO at bedtime - Patient informed about potential side effects of Caplyta, including mild sedation - Obtain fasting labs including lipid panel and HbA1c at [facility] (order already placed) - Continue current antipsychotic injection regimen, ensuring administration within 2 weeks of due date to prevent symptom relapse - Follow up to assess efficacy of medication changes and review lab results Sleep disturbance Assessment: Patient reports difficulty falling asleep and maintaining sleep, with 2-3 awakenings per night. Total sleep time averages 6 hours. Current Seroquel 200 mg at bedtime provides some sedation but is insufficient for optimal sleep. Anxiety contributes to sleep difficulties. Plan: - Initiate Caplyta as outlined above, which may provide additional sleep benefits - Gradually taper quetiapine as Caplyta is increased - Monitor sleep quality and duration with medication changes - Consider sleep apnea evaluation if sleep disturbances persist 06/04/2024 Generalized anxiety disorder (ICD-10 - F41.1) Dominik Reece presents with ongoing anxiety, auditory and visual hallucinations, paranoia, and sleep disturbances despite current medication regimen including monthly injections and oral medications. Schizophrenia with anxiety Assessment: Patient reports experiencing 8 episodes in the past month, indicating inadequate control of symptoms despite recent increase in injection dosage. Auditory and visual hallucinations persist, particularly at nighttime, manifesting as shadows and mumbles. Anxiety remains a significant concern, often coinciding with paranoia. Sleep is disrupted, relates it to anxiety levels. Current medications, including Seroquel 200 mg and recently completed trial of Trintellix 10 mg, have not provided sufficient symptom relief. Previous trials of clonidine and mirtazapine were also ineffective. Plan: - Discontinue Trintellix 10 mg due to lack of efficacy (note only 4-week trial) - Discontinue trazodone if ineffective (patient to decide) - Initiate Caplyta 10.5 mg PO at bedtime for 1 week - Continue quetiapine 200 mg PO at bedtime for 1 week - After 1 week, increase Caplyta to 21 mg PO at bedtime - After 1 week, decrease quetiapine to 150 mg PO at bedtime - Patient informed about potential side effects of Caplyta, including mild sedation - Obtain fasting labs including lipid panel and HbA1c at [facility] (order already placed) - Continue current antipsychotic injection regimen, ensuring administration within 2 weeks of due date to prevent symptom relapse - Follow up to assess efficacy of medication changes and review lab results Sleep disturbance Assessment: Patient reports difficulty falling asleep and maintaining sleep, with 2-3 awakenings per night. Total sleep time averages 6 hours. Current Seroquel 200 mg at bedtime provides some sedation but is insufficient for optimal sleep. Anxiety contributes to sleep difficulties. Plan: - Initiate Caplyta as outlined above, which may provide additional sleep benefits - Gradually taper quetiapine as Caplyta is increased - Monitor sleep quality and duration with medication changes - Consider sleep apnea evaluation if sleep disturbances persist 05/07/2024 Schizoaffective disorder, depressive type (ICD-10 - F25.1) Verified the injection dose and diagnosis 11/05/2023 Schizoaffective disorder, depressive type (ICD-10 - F25.1) cont invega sustenna 156mg IM monthly-has 1 refill pending at [facility] decrease seroquel XR 300mg q evening staff to give invega sustenna 156mg today has stopped seroquel 150mg and 100mg, and been able to decrease trazodone. tolerating injection and reports having improvement. discuss options, plan to continue injection and decrease seroquel further and monitor. education on meds/treatment course. have recommended counseling f/u in 4 wks, earlier if concerns notes: *hx substance abuse *non adherence to appts and treatment plan*initially seemed improved with stopping SSRI, less psychosis sx, less anxious*pattern initial improvement with dose change/increase followed by worsening paranoia, anxiety sx (within ~2-3wk time spans).*consider change to vraylar or invega/JAMESON; consider clonidine 10/08/2023 Schizoaffective disorder, depressive type (ICD-10 - F25.1) tolerating sustenna and some improvement, education on medications asks about decrease seroquel, recommend wait longer, but as he often changes his own meds, discussed best option, if too tired/sedated or still doing well in 2-3 weeks, could stop the quetiapine 150mg only and monitor how does. pt and v/u. give invega sustenna 156mg today- using sample send to [facility] for next month to provide directly to office before appt does not need other meds refilled recommend counseling f/u in 4 wks, earlier if concerns meds: start invega sustenna 156mg cont seroquel XR 550mg q evening (400+150; several hours before bed)cont seroquel IR 100mg qhs (this helps bedtime anxiety, paranoia, and sleep)seroquel total dose 650mg notes: *hx substance abuse *non adherence to appts and treatment plan*initially seemed improved with stopping SSRI, less psychosis sx, less anxious*pattern initial improvement with dose change/increase followed by worsening paranoia, anxiety sx (within ~2-3wk time spans).*consider change to vraylar or invega/JAMESON; consider clonidine 03/01/2024 Generalized anxiety disorder (ICD-10 - F41.1) 02/06/2024 Schizoaffective disorder, depressive type (ICD-10 - F25.1) First invega Trinza 546 mg administered 02/06/24 Next Invega Trinza will be due 05/08/24 Monitor for repsonse and side effects. follow up in one month to monitor response/progr ess Cont. seroquel 200 mg at bedtime for now. With return of hallucinations , although mild, and poor sleep, we will follow up on improvement after starting mirtazapine and discuss decrease next visit. refilled 01/25, not needed right now 02/06/2024 Generalized anxiety disorder (ICD-10 - F41.1) discussed options, risk/benefit. several meds in the past (abilify, buspar, wellbutrin, prozac, lithium, depakote, ambien in past-sleep behaviors; trazodone; lexapro, melatonin) Limited options, need something to combat both anxiety and sleep. Agreed on trying mirtazapine 15 mg at night. Actions on insomnia and anxiety can start shortly after initiation of dosing, low doses usually helpfull for sleep Cautioned on increased appetite and weight gain, antonella. with continuation of seroquel. Be mindful of appetite and eating patterns. We will monitor this closely Discussed other possible side effects (Sedation, dizziness) Recommend considering therapy 01/06/2024 Schizoaffective disorder, depressive type (ICD-10 - F25.1) cont invega sustenna 156mg IM monthly-given today per staff -then next month if remains stable plan for trinza 546mg, if issue should have 156 sustenna sample in office -invega to [facility] cont seroquel 200mg qhs next visit is 4 months on invega, he would like to switch to trinza if still stable, review r/b/se. For now as struggle to adjust sleep will keep seroquel at current dose for longer. for sleep discuss also melatonin, or try saving part of trazodone for middle of night and then try to go back to sleep instead of waking up for day. pt v/u have recommended counseling f/u in 4 wks, earlier if concerns notes: *hx substance abuse *non adherence to appts and treatment plan*initially seemed improved with stopping SSRI, less psychosis sx, less anxious*pattern initial improvement with dose change/increase followed by worsening paranoia, anxiety sx (within ~2-3wk time spans).*consider change to vraylar or invega/JAMESON; consider clonidine 12/03/2023 Schizoaffective disorder, depressive type (ICD-10 - F25.1) cont invega sustenna 156mg IM monthly-has 1 refill pending at [facility] decrease seroquel to IR 200mg qhs staff to give invega sustenna 156mg today continued improvement, he likes the invega sustenna. Will cont to taper seroquel and change to IR. review r/b/se, discontinuation effects, monitor for worsening sx, etc. have recommended counseling f/u in 4 wks, earlier if concerns notes: *hx substance abuse *non adherence to appts and treatment plan*initially seemed improved with stopping SSRI, less psychosis sx, less anxious*pattern initial improvement with dose change/increase followed by worsening paranoia, anxiety sx (within ~2-3wk time spans).*consider change to vraylar or invega/JAMESON; consider clonidine 08/13/2024 Schizoaffective disorder, depressive type (ICD-10 - F25.1) 08/13/2024 Generalized anxiety disorder (ICD-10 - F41.1) 07/16/2024 Schizoaffective disorder, depressive type (ICD-10 - F25.1) 07/02/2024 Schizoaffective disorder, depressive type (ICD-10 - F25.1) 07/02/2024 Generalized anxiety disorder (ICD-10 - F41.1) 05/24/2024 Insomnia (ICD-10 - G47.00) 05/07/2024 Schizoaffective disorder, depressive type (ICD-10 - F25.1) Still concerns with depression, anxiety, and cognitive complaints. Have been unable to wean off seroquel; hoping to achieve this soon. discussed options, open to starting trintellix. - Trintellix hoping to see benefits in depression as well as anxiety and cognitive complaints, allowing for weaning down on seroquel. Schizoaffective depressive type - Feeling more down and depressed for past 3-4 weeks - Possible relation to Invega Trinza wearing off - Reports low moitvation, interest, energy, and impariement in concentration. Depressive symptoms versus negative symptoms with psychosis - Patient reports return of hallucinations and paranoia 2 weeks ago, due for shot today Plan: - Increase Invega Trinza to 821 mg, starting today - Had good response overall with transition to Trinza, however still on seroquel 200 mg and have not been able to wean down. Increase dose in hopes to be able to wean down in future visit - Plan to schedule next injection 1-2 weeks earlier to avoid lapse - Monitor mood during follow-up visits. - Monitor for any changes in mood, hallucinations, and paranoia during follow-up visits. Anxiety - Persistent anxiety - Clonidine not effective in managing anxiety Plan: - Discontinue clonidine - Monitor anxiety levels in response to starting trintellix Insomnia - Currently on Seroquel for sleep - Previous attempts to reduce/discontin ue Seroquel resulted in sleep disturbances Plan: - Continue Seroquel for now - Address issues with sleep when able to wean down on seroquel Vitamin D deficiency - on a supplement Plan: - Continue vitamin D as prescribed. Follow up in 4 weeks, sooner if concerns arise 04/02/2024 Schizoaffective disorder, depressive type (ICD-10 - F25.1) Assessment and Plan: Schizoaffective depressive type - Patient reports mild depression - Patient reports good control of hallucinations and paranoia Plan: - Continue Invega Trinza, next shot due next month. - Monitor mood during follow-up visits. - Monitor for any changes in mood, hallucinations, and paranoia during follow-up visits. Anxiety: - Patient reports severe anxiety with a score of 9/10, no improvement from last month. - Experiencing physical symptoms such as shortness of breeath and palpitations during anxiety episodes. Plan: - Start clonidine 0.1 mg at night to help with anxiety and sleep. - Monitor for side effects and blood pressure changes. Insomnia: - Patient reports sleep is slightly improved with Seroquel 200 mg at night but still experiencing sleep disturbances. Plan: - Continue Seroquel 200 mg at night, decrease next visit. - Add clonidine 0.1 mg at night to help with sleep and anxiety. Vitamin D deficiency - on a supplement Plan: - Continue vitamin D as prescribed. Labs: Plan: - Order fasting labs, including lipids and glucose. - Share results with the patient's primary care provider. Follow up in 4 weeks, coinciding with the patient's next Invega Sustenna injection due around May 01. Reassess anxiety, sleep, mood, and hallucinations at that time. 04/02/2024 Generalized anxiety disorder (ICD-10 - F41.1) Assessment and Plan: Schizoaffective depressive type - Patient reports mild depression - Patient reports good control of hallucinations and paranoia Plan: - Continue Invega Trinza, next shot due next month. - Monitor mood during follow-up visits. - Monitor for any changes in mood, hallucinations, and paranoia during follow-up visits. Anxiety: - Patient reports severe anxiety with a score of 9/10, no improvement from last month. - Experiencing physical symptoms such as shortness of breeath and palpitations during anxiety episodes. Plan: - Start clonidine 0.1 mg at night to help with anxiety and sleep. - Monitor for side effects and blood pressure changes. Insomnia: - Patient reports sleep is slightly improved with Seroquel 200 mg at night but still experiencing sleep disturbances. Plan: - Continue Seroquel 200 mg at night, decrease next visit. - Add clonidine 0.1 mg at night to help with sleep and anxiety. Vitamin D deficiency - on a supplement Plan: - Continue vitamin D as prescribed. Labs: Plan: - Order fasting labs, including lipids and glucose. - Share results with the patient's primary care provider. Follow up in 4 weeks, coinciding with the patient's next Invega Sustenna injection due around May 01. Reassess anxiety, sleep, mood, and hallucinations at that time. 05/07/2024 Chronic insomnia (ICD-10 - F51.04) Still concerns with depression, anxiety, and cognitive complaints. Have been unable to wean off seroquel; hoping to achieve this soon. discussed options, open to starting trintellix. - Trintellix hoping to see benefits in depression as well as anxiety and cognitive complaints, allowing for weaning down on seroquel. Schizoaffective depressive type - Feeling more down and depressed for past 3-4 weeks - Possible relation to Invega Trinza wearing off - Reports low moitvation, interest, energy, and impariement in concentration. Depressive symptoms versus negative symptoms with psychosis - Patient reports return of hallucinations and paranoia 2 weeks ago, due for shot today Plan: - Increase Invega Trinza to 821 mg, starting today - Had good response overall with transition to Trinza, however still on seroquel 200 mg and have not been able to wean down. Increase dose in hopes to be able to wean down in future visit - Plan to schedule next injection 1-2 weeks earlier to avoid lapse - Monitor mood during follow-up visits. - Monitor for any changes in mood, hallucinations, and paranoia during follow-up visits. Anxiety - Persistent anxiety - Clonidine not effective in managing anxiety Plan: - Discontinue clonidine - Monitor anxiety levels in response to starting trintellix Insomnia - Currently on Seroquel for sleep - Previous attempts to reduce/discontin ue Seroquel resulted in sleep disturbances Plan: - Continue Seroquel for now - Address issues with sleep when able to wean down on seroquel Vitamin D deficiency - on a supplement Plan: - Continue vitamin D as prescribed. Follow up in 4 weeks, sooner if concerns arise 03/05/2024 Schizoaffective disorder, depressive type (ICD-10 - F25.1) ongoing anxiety and insomnia, now some depressive symptoms hallucinations, return of some paranoia, mild compared to past. Abrupt discontinuation of seroquel after last visit compromised treatment plan, and worsened symtpoms, and hard to tell what medications are benefiting what symptoms. Dsicussed options, will taper back onto seroquel, which will hopefully improve sleep, anxiety, mood, and psychosis again. All worsened last visit, assumedly from abrupt and unplanned discontinuation. He has plenty of trazodone at home, discussed going back on it for now, hopefully will help until seroquel back up to a therapeutic dose. He and daughter both verbalize understanding and agree to plan. plan: - continue invega trinza, next injection due 05/05/24 - restart seroquel, 200 mg qhs: he has some at home and a refill available at pharmacy. instructed to taper up - cont trazodone 100mg,1-2 tabs at bedtime - cont vitamin d follow up 4 weeks 07/23/2024 Generalized anxiety disorder (ICD-10 - F41.1) Electronic Prior Authorization was requested for Vilazodone HCl 20 MG Tablet. Provider can order medication once approval received. 07/23/2024 Generalized anxiety disorder (ICD-10 - F41.1) 03/05/2024 Generalized anxiety disorder (ICD-10 - F41.1) ongoing anxiety and insomnia, now some depressive symptoms hallucinations, return of some paranoia, mild compared to past. Abrupt discontinuation of seroquel after last visit compromised treatment plan, and worsened symtpoms, and hard to tell what medications are benefiting what symptoms. Dsicussed options, will taper back onto seroquel, which will hopefully improve sleep, anxiety, mood, and psychosis again. All worsened last visit, assumedly from abrupt and unplanned discontinuation. He has plenty of trazodone at home, discussed going back on it for now, hopefully will help until seroquel back up to a therapeutic dose. He and daughter both verbalize understanding and agree to plan. plan: - continue invega trinza, next injection due 05/05/24 - restart seroquel, 200 mg qhs: he has some at home and a refill available at pharmacy. instructed to taper up - cont trazodone 100mg,1-2 tabs at bedtime - cont vitamin d follow up 4 weeks 04/02/2024 Insomnia due to other mental disorder (ICD-10 - F51.05) Assessment and Plan: Schizoaffective depressive type - Patient reports mild depression - Patient reports good control of hallucinations and paranoia Plan: - Continue Invega Trinza, next shot due next month. - Monitor mood during follow-up visits. - Monitor for any changes in mood, hallucinations, and paranoia during follow-up visits. Anxiety: - Patient reports severe anxiety with a score of 9/10, no improvement from last month. - Experiencing physical symptoms such as shortness of breeath and palpitations during anxiety episodes. Plan: - Start clonidine 0.1 mg at night to help with anxiety and sleep. - Monitor for side effects and blood pressure changes. Insomnia: - Patient reports sleep is slightly improved with Seroquel 200 mg at night but still experiencing sleep disturbances. Plan: - Continue Seroquel 200 mg at night, decrease next visit. - Add clonidine 0.1 mg at night to help with sleep and anxiety. Vitamin D deficiency - on a supplement Plan: - Continue vitamin D as prescribed. Labs: Plan: - Order fasting labs, including lipids and glucose. - Share results with the patient's primary care provider. Follow up in 4 weeks, coinciding with the patient's next Invega Sustenna injection due around May 01. Reassess anxiety, sleep, mood, and hallucinations at that time. 05/07/2024 Generalized anxiety disorder (ICD-10 - F41.1) Still concerns with depression, anxiety, and cognitive complaints. Have been unable to wean off seroquel; hoping to achieve this soon. discussed options, open to starting trintellix. - Trintellix hoping to see benefits in depression as well as anxiety and cognitive complaints, allowing for weaning down on seroquel. Schizoaffective depressive type - Feeling more down and depressed for past 3-4 weeks - Possible relation to Invega Trinza wearing off - Reports low moitvation, interest, energy, and impariement in concentration. Depressive symptoms versus negative symptoms with psychosis - Patient reports return of hallucinations and paranoia 2 weeks ago, due for shot today Plan: - Increase Invega Trinza to 821 mg, starting today - Had good response overall with transition to Trinza, however still on seroquel 200 mg and have not been able to wean down. Increase dose in hopes to be able to wean down in future visit - Plan to schedule next injection 1-2 weeks earlier to avoid lapse - Monitor mood during follow-up visits. - Monitor for any changes in mood, hallucinations, and paranoia during follow-up visits. Anxiety - Persistent anxiety - Clonidine not effective in managing anxiety Plan: - Discontinue clonidine - Monitor anxiety levels in response to starting trintellix Insomnia - Currently on Seroquel for sleep - Previous attempts to reduce/discontin ue Seroquel resulted in sleep disturbances Plan: - Continue Seroquel for now - Address issues with sleep when able to wean down on seroquel Vitamin D deficiency - on a supplement Plan: - Continue vitamin D as prescribed. Follow up in 4 weeks, sooner if concerns arise 07/02/2024 Chronic insomnia (ICD-10 - F51.04) 05/24/2024 Insomnia due to other mental disorder (ICD-10 - F51.05) 07/16/2024 Generalized anxiety disorder (ICD-10 - F41.1) 08/13/2024 Chronic insomnia (ICD-10 - F51.04) 12/03/2023 Generalized anxiety disorder (ICD-10 - F41.1) meds as above recommend counseling 01/06/2024 Generalized anxiety disorder (ICD-10 - F41.1) meds as above recommend counseling 02/06/2024 Insomnia due to other mental disorder (ICD-10 - F51.05) as above practice good sleep hygiene 10/08/2023 Generalized anxiety disorder (ICD-10 - F41.1) meds as above recommend counseling 11/05/2023 Generalized anxiety disorder (ICD-10 - F41.1) meds as above recommend counseling 06/04/2024 Chronic insomnia (ICD-10 - F51.04) Dominik Reece presents with ongoing anxiety, auditory and visual hallucinations, paranoia, and sleep disturbances despite current medication regimen including monthly injections and oral medications. Schizophrenia with anxiety Assessment: Patient reports experiencing 8 episodes in the past month, indicating inadequate control of symptoms despite recent increase in injection dosage. Auditory and visual hallucinations persist, particularly at nighttime, manifesting as shadows and mumbles. Anxiety remains a significant concern, often coinciding with paranoia. Sleep is disrupted, relates it to anxiety levels. Current medications, including Seroquel 200 mg and recently completed trial of Trintellix 10 mg, have not provided sufficient symptom relief. Previous trials of clonidine and mirtazapine were also ineffective. Plan: - Discontinue Trintellix 10 mg due to lack of efficacy (note only 4-week trial) - Discontinue trazodone if ineffective (patient to decide) - Initiate Caplyta 10.5 mg PO at bedtime for 1 week - Continue quetiapine 200 mg PO at bedtime for 1 week - After 1 week, increase Caplyta to 21 mg PO at bedtime - After 1 week, decrease quetiapine to 150 mg PO at bedtime - Patient informed about potential side effects of Caplyta, including mild sedation - Obtain fasting labs including lipid panel and HbA1c at [facility] (order already placed) - Continue current antipsychotic injection regimen, ensuring administration within 2 weeks of due date to prevent symptom relapse - Follow up to assess efficacy of medication changes and review lab results Sleep disturbance Assessment: Patient reports difficulty falling asleep and maintaining sleep, with 2-3 awakenings per night. Total sleep time averages 6 hours. Current Seroquel 200 mg at bedtime provides some sedation but is insufficient for optimal sleep. Anxiety contributes to sleep difficulties. Plan: - Initiate Caplyta as outlined above, which may provide additional sleep benefits - Gradually taper quetiapine as Caplyta is increased - Monitor sleep quality and duration with medication changes - Consider sleep apnea evaluation if sleep disturbances persist 10/01/2023 Insomnia due to other mental disorder (ICD-10 - F51.05) cont trazodone 100mg take 1-2 qhs prn (only if needed, if sedation, oversleeping with other med changes do not take) practice good sleep hygiene 06/04/2024 Benign essential HTN (ICD-10 - I10) Dominik Reece presents with ongoing anxiety, auditory and visual hallucinations, paranoia, and sleep disturbances despite current medication regimen including monthly injections and oral medications. Schizophrenia with anxiety Assessment: Patient reports experiencing 8 episodes in the past month, indicating inadequate control of symptoms despite recent increase in injection dosage. Auditory and visual hallucinations persist, particularly at nighttime, manifesting as shadows and mumbles. Anxiety remains a significant concern, often coinciding with paranoia. Sleep is disrupted, relates it to anxiety levels. Current medications, including Seroquel 200 mg and recently completed trial of Trintellix 10 mg, have not provided sufficient symptom relief. Previous trials of clonidine and mirtazapine were also ineffective. Plan: - Discontinue Trintellix 10 mg due to lack of efficacy (note only 4-week trial) - Discontinue trazodone if ineffective (patient to decide) - Initiate Caplyta 10.5 mg PO at bedtime for 1 week - Continue quetiapine 200 mg PO at bedtime for 1 week - After 1 week, increase Caplyta to 21 mg PO at bedtime - After 1 week, decrease quetiapine to 150 mg PO at bedtime - Patient informed about potential side effects of Caplyta, including mild sedation - Obtain fasting labs including lipid panel and HbA1c at [facility] (order already placed) - Continue current antipsychotic injection regimen, ensuring administration within 2 weeks of due date to prevent symptom relapse - Follow up to assess efficacy of medication changes and review lab results Sleep disturbance Assessment: Patient reports difficulty falling asleep and maintaining sleep, with 2-3 awakenings per night. Total sleep time averages 6 hours. Current Seroquel 200 mg at bedtime provides some sedation but is insufficient for optimal sleep. Anxiety contributes to sleep difficulties. Plan: - Initiate Caplyta as outlined above, which may provide additional sleep benefits - Gradually taper quetiapine as Caplyta is increased - Monitor sleep quality and duration with medication changes - Consider sleep apnea evaluation if sleep disturbances persist 11/05/2023 Insomnia due to other mental disorder (ICD-10 - F51.05) cont trazodone 100mg take 1-2 qhs prn (only if needed, if sedation, oversleeping with other med changes do not take) practice good sleep hygiene 10/08/2023 Insomnia due to other mental disorder (ICD-10 - F51.05) cont trazodone 100mg take 1-2 qhs prn (only if needed, if sedation, oversleeping with other med changes do not take) practice good sleep hygiene 10/01/2023 Vitamin D deficiency, unspecified (ICD-10 - E55.9) recommend OTC long-term, 6621-7812 units daily 04/02/2024 Vitamin D deficiency, unspecified (ICD-10 - E55.9) Assessment and Plan: Schizoaffective depressive type - Patient reports mild depression - Patient reports good control of hallucinations and paranoia Plan: - Continue Invega Trinza, next shot due next month. - Monitor mood during follow-up visits. - Monitor for any changes in mood, hallucinations, and paranoia during follow-up visits. Anxiety: - Patient reports severe anxiety with a score of 9/10, no improvement from last month. - Experiencing physical symptoms such as shortness of breeath and palpitations during anxiety episodes. Plan: - Start clonidine 0.1 mg at night to help with anxiety and sleep. - Monitor for side effects and blood pressure changes. Insomnia: - Patient reports sleep is slightly improved with Seroquel 200 mg at night but still experiencing sleep disturbances. Plan: - Continue Seroquel 200 mg at night, decrease next visit. - Add clonidine 0.1 mg at night to help with sleep and anxiety. Vitamin D deficiency - on a supplement Plan: - Continue vitamin D as prescribed. Labs: Plan: - Order fasting labs, including lipids and glucose. - Share results with the patient's primary care provider. Follow up in 4 weeks, coinciding with the patient's next Invega Sustenna injection due around May 01. Reassess anxiety, sleep, mood, and hallucinations at that time. 02/06/2024 Vitamin D deficiency, unspecified (ICD-10 - E55.9) notes PCP was prescribing, no longer seeing and getting a new PCP soon. sent prescription for vitamin D 01/06/2024 Insomnia due to other mental disorder (ICD-10 - F51.05) cont trazodone 100mg take 1-2 qhs prn consider OTC melatonin 3-5mg qhs prn, no more than 10mg practice good sleep hygiene 12/03/2023 Insomnia due to other mental disorder (ICD-10 - F51.05) cont trazodone 100mg take 1-2 qhs prn (only if needed, if sedation or oversleeping with other med changes- do not take) practice good sleep hygiene 08/13/2024 Vitamin D deficiency, unspecified (ICD-10 - E55.9) 07/02/2024 Benign essential HTN (ICD-10 - I10) 07/16/2024 Chronic insomnia (ICD-10 - F51.04) 05/07/2024 Vitamin D deficiency, unspecified (ICD-10 - E55.9) Still concerns with depression, anxiety, and cognitive complaints. Have been unable to wean off seroquel; hoping to achieve this soon. discussed options, open to starting trintellix. - Trintellix hoping to see benefits in depression as well as anxiety and cognitive complaints, allowing for weaning down on seroquel. Schizoaffective depressive type - Feeling more down and depressed for past 3-4 weeks - Possible relation to Invega Trinza wearing off - Reports low moitvation, interest, energy, and impariement in concentration. Depressive symptoms versus negative symptoms with psychosis - Patient reports return of hallucinations and paranoia 2 weeks ago, due for shot today Plan: - Increase Invega Trinza to 821 mg, starting today - Had good response overall with transition to Trinza, however still on seroquel 200 mg and have not been able to wean down. Increase dose in hopes to be able to wean down in future visit - Plan to schedule next injection 1-2 weeks earlier to avoid lapse - Monitor mood during follow-up visits. - Monitor for any changes in mood, hallucinations, and paranoia during follow-up visits. Anxiety - Persistent anxiety - Clonidine not effective in managing anxiety Plan: - Discontinue clonidine - Monitor anxiety levels in response to starting trintellix Insomnia - Currently on Seroquel for sleep - Previous attempts to reduce/discontin ue Seroquel resulted in sleep disturbances Plan: - Continue Seroquel for now - Address issues with sleep when able to wean down on seroquel Vitamin D deficiency - on a supplement Plan: - Continue vitamin D as prescribed. Follow up in 4 weeks, sooner if concerns arise 03/05/2024 Insomnia (ICD-10 - G47.00) ongoing anxiety and insomnia, now some depressive symptoms hallucinations, return of some paranoia, mild compared to past. Abrupt discontinuation of seroquel after last visit compromised treatment plan, and worsened symtpoms, and hard to tell what medications are benefiting what symptoms. Dsicussed options, will taper back onto seroquel, which will hopefully improve sleep, anxiety, mood, and psychosis again. All worsened last visit, assumedly from abrupt and unplanned discontinuation. He has plenty of trazodone at home, discussed going back on it for now, hopefully will help until seroquel back up to a therapeutic dose. He and daughter both verbalize understanding and agree to plan. plan: - continue invega trinza, next injection due 05/05/24 - restart seroquel, 200 mg qhs: he has some at home and a refill available at pharmacy. instructed to taper up - cont trazodone 100mg,1-2 tabs at bedtime - cont vitamin d follow up 4 weeks 05/07/2024 Benign essential HTN (ICD-10 - I10) Still concerns with depression, anxiety, and cognitive complaints. Have been unable to wean off seroquel; hoping to achieve this soon. discussed options, open to starting trintellix. - Trintellix hoping to see benefits in depression as well as anxiety and cognitive complaints, allowing for weaning down on seroquel. Schizoaffective depressive type - Feeling more down and depressed for past 3-4 weeks - Possible relation to Invega Trinza wearing off - Reports low moitvation, interest, energy, and impariement in concentration. Depressive symptoms versus negative symptoms with psychosis - Patient reports return of hallucinations and paranoia 2 weeks ago, due for shot today Plan: - Increase Invega Trinza to 821 mg, starting today - Had good response overall with transition to Trinza, however still on seroquel 200 mg and have not been able to wean down. Increase dose in hopes to be able to wean down in future visit - Plan to schedule next injection 1-2 weeks earlier to avoid lapse - Monitor mood during follow-up visits. - Monitor for any changes in mood, hallucinations, and paranoia during follow-up visits. Anxiety - Persistent anxiety - Clonidine not effective in managing anxiety Plan: - Discontinue clonidine - Monitor anxiety levels in response to starting trintellix Insomnia - Currently on Seroquel for sleep - Previous attempts to reduce/discontin ue Seroquel resulted in sleep disturbances Plan: - Continue Seroquel for now - Address issues with sleep when able to wean down on seroquel Vitamin D deficiency - on a supplement Plan: - Continue vitamin D as prescribed. Follow up in 4 weeks, sooner if concerns arise 04/02/2024 Benign essential HTN (ICD-10 - I10) Assessment and Plan: Schizoaffective depressive type - Patient reports mild depression - Patient reports good control of hallucinations and paranoia Plan: - Continue Invega Trinza, next shot due next month. - Monitor mood during follow-up visits. - Monitor for any changes in mood, hallucinations, and paranoia during follow-up visits. Anxiety: - Patient reports severe anxiety with a score of 9/10, no improvement from last month. - Experiencing physical symptoms such as shortness of breeath and palpitations during anxiety episodes. Plan: - Start clonidine 0.1 mg at night to help with anxiety and sleep. - Monitor for side effects and blood pressure changes. Insomnia: - Patient reports sleep is slightly improved with Seroquel 200 mg at night but still experiencing sleep disturbances. Plan: - Continue Seroquel 200 mg at night, decrease next visit. - Add clonidine 0.1 mg at night to help with sleep and anxiety. Vitamin D deficiency - on a supplement Plan: - Continue vitamin D as prescribed. Labs: Plan: - Order fasting labs, including lipids and glucose. - Share results with the patient's primary care provider. Follow up in 4 weeks, coinciding with the patient's next Invega Sustenna injection due around May 01. Reassess anxiety, sleep, mood, and hallucinations at that time. 03/05/2024 Vitamin D deficiency, unspecified (ICD-10 - E55.9) ongoing anxiety and insomnia, now some depressive symptoms hallucinations, return of some paranoia, mild compared to past. Abrupt discontinuation of seroquel after last visit compromised treatment plan, and worsened symtpoms, and hard to tell what medications are benefiting what symptoms. Dsicussed options, will taper back onto seroquel, which will hopefully improve sleep, anxiety, mood, and psychosis again. All worsened last visit, assumedly from abrupt and unplanned discontinuation. He has plenty of trazodone at home, discussed going back on it for now, hopefully will help until seroquel back up to a therapeutic dose. He and daughter both verbalize understanding and agree to plan. plan: - continue invega trinza, next injection due 05/05/24 - restart seroquel, 200 mg qhs: he has some at home and a refill available at pharmacy. instructed to taper up - cont trazodone 100mg,1-2 tabs at bedtime - cont vitamin d follow up 4 weeks 07/02/2024 Vitamin D deficiency, unspecified (ICD-10 - E55.9) 08/13/2024 Benign essential HTN (ICD-10 - I10) 07/16/2024 Vitamin D deficiency, unspecified (ICD-10 - E55.9) 06/04/2024 Vitamin D deficiency, unspecified (ICD-10 - E55.9) Dominik Reece presents with ongoing anxiety, auditory and visual hallucinations, paranoia, and sleep disturbances despite current medication regimen including monthly injections and oral medications. Schizophrenia with anxiety Assessment: Patient reports experiencing 8 episodes in the past month, indicating inadequate control of symptoms despite recent increase in injection dosage. Auditory and visual hallucinations persist, particularly at nighttime, manifesting as shadows and mumbles. Anxiety remains a significant concern, often coinciding with paranoia. Sleep is disrupted, relates it to anxiety levels. Current medications, including Seroquel 200 mg and recently completed trial of Trintellix 10 mg, have not provided sufficient symptom relief. Previous trials of clonidine and mirtazapine were also ineffective. Plan: - Discontinue Trintellix 10 mg due to lack of efficacy (note only 4-week trial) - Discontinue trazodone if ineffective (patient to decide) - Initiate Caplyta 10.5 mg PO at bedtime for 1 week - Continue quetiapine 200 mg PO at bedtime for 1 week - After 1 week, increase Caplyta to 21 mg PO at bedtime - After 1 week, decrease quetiapine to 150 mg PO at bedtime - Patient informed about potential side effects of Caplyta, including mild sedation - Obtain fasting labs including lipid panel and HbA1c at [facility] (order already placed) - Continue current antipsychotic injection regimen, ensuring administration within 2 weeks of due date to prevent symptom relapse - Follow up to assess efficacy of medication changes and review lab results Sleep disturbance Assessment: Patient reports difficulty falling asleep and maintaining sleep, with 2-3 awakenings per night. Total sleep time averages 6 hours. Current Seroquel 200 mg at bedtime provides some sedation but is insufficient for optimal sleep. Anxiety contributes to sleep difficulties. Plan: - Initiate Caplyta as outlined above, which may provide additional sleep benefits - Gradually taper quetiapine as Caplyta is increased - Monitor sleep quality and duration with medication changes - Consider sleep apnea evaluation if sleep disturbances persist 11/05/2023 Vitamin D deficiency, unspecified (ICD-10 - E55.9) says PCP prescribed weekly 12/03/2023 Vitamin D deficiency, unspecified (ICD-10 - E55.9) says PCP prescribed weekly 02/06/2024 Benign essential HTN (ICD-10 - I10) elevated BP, will monitor in follow up visits. check at home Note: Inquired about labs, patient stated he thought he had labs drawn recently. I do not see in external records labs available for me to review. Next visit will follow up on this 01/06/2024 Vitamin D deficiency, unspecified (ICD-10 - E55.9) PCP prescribes 10/08/2023 Vitamin D deficiency, unspecified (ICD-10 - E55.9) recommend OTC long-term, 7421-0286 units daily 08/13/2024 Encounter for screening for depression (ICD-10 - Z13.31) 07/16/2024 Benign essential HTN (ICD-10 - I10) 07/02/2024 Encounter for screening for depression (ICD-10 - Z13.31) 03/05/2024 Benign essential HTN (ICD-10 - I10) ongoing anxiety and insomnia, now some depressive symptoms hallucinations, return of some paranoia, mild compared to past. Abrupt discontinuation of seroquel after last visit compromised treatment plan, and worsened symtpoms, and hard to tell what medications are benefiting what symptoms. Dsicussed options, will taper back onto seroquel, which will hopefully improve sleep, anxiety, mood, and psychosis again. All worsened last visit, assumedly from abrupt and unplanned discontinuation. He has plenty of trazodone at home, discussed going back on it for now, hopefully will help until seroquel back up to a therapeutic dose. He and daughter both verbalize understanding and agree to plan. plan: - continue invega trinza, next injection due 05/05/24 - restart seroquel, 200 mg qhs: he has some at home and a refill available at pharmacy. 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 Have been unable to wean off seroquel; hoping to achieve this soon. discussed options, open to starting trintellix. - Trintellix hoping to see benefits in depression as well as anxiety and cognitive complaints, allowing for weaning down on seroquel. Schizoaffective depressive type - Feeling more down and depressed for past 3-4 weeks - Possible relation to Invega Trinza wearing off - Reports low moitvation, interest, energy, and impariement in concentration. Depressive symptoms versus negative symptoms with psychosis - Patient reports return of hallucinations and paranoia 2 weeks ago, due for shot today Plan: - Increase Invega Trinza to 821 mg, starting today - Had good response overall with transition to Trinza, however still on seroquel 200 mg and have not been able to wean down. Increase dose in hopes to be able to wean down in future visit - Plan to schedule next injection 1-2 weeks earlier to avoid lapse - Monitor mood during follow-up visits. - Monitor for any changes in mood, hallucinations, and paranoia during follow-up visits. Anxiety - Persistent anxiety - Clonidine not effective in managing anxiety Plan: - Discontinue clonidine - Monitor anxiety levels in response to starting trintellix Insomnia - Currently on Seroquel for sleep - Previous attempts to reduce/discontin ue Seroquel resulted in sleep disturbances Plan: - Continue Seroquel for now - Address issues with sleep when able to wean down on seroquel Vitamin D deficiency - on a supplement Plan: - Continue vitamin D as prescribed. Follow up in 4 weeks, sooner if concerns arise 04/02/2024 Other retirement (current) drug therapy (ICD-10 - Z79.899) Assessment and Plan: Schizoaffective depressive type - Patient reports mild depression - Patient reports good control of hallucinations and paranoia Plan: - Continue Invega Trinza, next shot due next month. - Monitor mood during follow-up visits. - Monitor for any changes in mood, hallucinations, and paranoia during follow-up visits. Anxiety: - Patient reports severe anxiety with a score of 9/10, no improvement from last month. - Experiencing physical symptoms such as shortness of breeath and palpitations during anxiety episodes. Plan: - Start clonidine 0.1 mg at night to help with anxiety and sleep. - Monitor for side effects and blood pressure changes. Insomnia: - Patient reports sleep is slightly improved with Seroquel 200 mg at night but still experiencing sleep disturbances. Plan: - Continue Seroquel 200 mg at night, decrease next visit. - Add clonidine 0.1 mg at night to help with sleep and anxiety. Vitamin D deficiency - on a supplement Plan: - Continue vitamin D as prescribed. Labs: Plan: - Order fasting labs, including lipids and glucose. - Share results with the patient's primary care provider. Follow up in 4 weeks, coinciding with the patient's next Invega Sustenna injection due around May 01. Reassess anxiety, sleep, mood, and hallucinations at that time. 07/16/2024 Encounter for screening for depression (ICD-10 - Z13.31) 06/04/2024 Encounter for screening for depression (ICD-10 - Z13.31) Dominik Reece presents with ongoing anxiety, auditory and visual hallucinations, paranoia, and sleep disturbances despite current medication regimen including monthly injections and oral medications. Schizophrenia with anxiety Assessment: Patient reports experiencing 8 episodes in the past month, indicating inadequate control of symptoms despite recent increase in injection dosage. Auditory and visual hallucinations persist, particularly at nighttime, manifesting as shadows and mumbles. Anxiety remains a significant concern, often coinciding with paranoia. Sleep is disrupted, relates it to anxiety levels. Current medications, including Seroquel 200 mg and recently completed trial of Trintellix 10 mg, have not provided sufficient symptom relief. Previous trials of clonidine and mirtazapine were also ineffective. Plan: - Discontinue Trintellix 10 mg due to lack of efficacy (note only 4-week trial) - Discontinue trazodone if ineffective (patient to decide) - Initiate Caplyta 10.5 mg PO at bedtime for 1 week - Continue quetiapine 200 mg PO at bedtime for 1 week - After 1 week, increase Caplyta to 21 mg PO at bedtime - After 1 week, decrease quetiapine to 150 mg PO at bedtime - Patient informed about potential side effects of Caplyta, including mild sedation - Obtain fasting labs including lipid panel and HbA1c at [facility] (order already placed) - Continue current antipsychotic injection regimen, ensuring administration within 2 weeks of due date to prevent symptom relapse - Follow up to assess efficacy of medication changes and review lab results Sleep disturbance Assessment: Patient reports difficulty falling asleep and maintaining sleep, with 2-3 awakenings per night. Total sleep time averages 6 hours. Current Seroquel 200 mg at bedtime provides some sedation but is insufficient for optimal sleep. Anxiety contributes to sleep difficulties. Plan: - Initiate Caplyta as outlined above, which may provide additional sleep benefits - Gradually taper quetiapine as Caplyta is increased - Monitor sleep quality and duration with medication changes - Consider sleep apnea evaluation if sleep disturbances persist 07/16/2024 Encounter for screening for cardiovascular disorders (ICD-10 - Z13.6) 10/01/2023 Other 02/06/2024 Other Checking when last labs were drawn, last EKG done. If able, check in next week to see how things are going. follow up 4 weeks, call sooner if concerns arise 07/02/2024 Other Dominik Lechugasommer, a patient with a history of schizoaffective disorder, depressive type with paranoia, anxiety, insomnia, presents with worsening anxiety, irritability, and paranoid thoughts over the past month with no improvement. Anxiety with paranoid featuresAssessme nt: Patient reports anxiety through the roof with paranoid thoughts of being followed and watched. These symptoms appear to be distinct from psychotic symptoms related to schizophrenia. Anxiety is significantly impacting daily functioning, limiting the patient's ability to leave home. Previous trials of multiple medications including BuSpar, Lexapro, Prozac, clonidine, and others have been ineffective or poorly tolerated.Plan:- Discussed gene site testing to guide future medication choices; patient agreed to proceed- Continue trazodone (dose not specified) at bedtime for sleep - Encourage ongoing stress-reduction techniques Schizoaffective Disorder, depressive typeAssessment: Patient reports experiencing hallucinations 3-4 days in a row prior to last antipsychotic injection. Currently on long-acting injectable antipsychotic (specific medication not mentioned) with last dose given on July 05, 2024. Symptoms appear to worsen as the injection effect wanes. Recently discontinued oral Seroquel (quetiapine) without significant issues.Plan:- Schedule next antipsychotic injection for approximately July 21, 2024 (2 weeks earlier than the standard 3-month interval) to prevent symptom recurrence- Discontinue Seroquel (quetiapine) 150 mg- Follow up at time of next injection to reassess symptoms and medication efficacy Medication managementAssess ment: Patient has tried multiple medications with limited success. Gene site testing has not been previously performed and may guide future medication choices.Plan:- Proceed with gene site testing (cheek swab) to guide future medication choices- Clinic staff to assist with insurance coverage check for gene site testing 07/16/2024 Dinesh Reece presents with ongoing anxiety, mood instability, and occasional paranoia, currently managed with Invega injections and recently discontinued Seroquel and Ritalin. Anxiety and Mood Instability Assessment: Patient reports persistent anxiety, describing feeling on edge all the time and experiencing difficulty being in public spaces, including avoidance of baseball games. Mood is described as fluctuating with real bad moments and good moments. Previous trials of multiple medications including mirtazapine, clonidine, Lexapro, Prozac, and Trintellix have been ineffective or not tolerated. Recent trial of Rexulti (brexpiprazole) 2mg for 2-3 weeks has not shown significant improvement. Genetic testing results suggest potential for high serum levels of certain medications, indicating a need for dose adjustments. Plan: - Discontinue Rexulti (brexpiprazole) - Initiate Viibryd for anxiety and depression: - Start at 10mg PO daily with food for 1 week - Increase to 20mg PO daily with food for 3 weeks - May consider increasing to 40mg based on response and tolerability - Follow up in 3 weeks to assess response to Viibryd - Educated patient on Viibryd: - Take with food to improve absorption and reduce GI side effects Paranoia Assessment: Patient reports occasional paranoia, particularly while driving and in public spaces. Symptoms include feeling that people are looking at him or are after him. Currently managed with Invega injections, which appear to have reduced the frequency of paranoid thoughts compared to previous levels. Plan: - Continue Invega injections as currently prescribed - Monitor for changes in paranoid thoughts with new medication regimen Metabolic Abnormalities Assessment: Recent lab results show elevated hemoglobin A1c of 7.9%, indicating suboptimal glycemic control. Creatinine is mildly elevated at 1.52 mg/dL (normal cutoff 1.3 mg/dL), suggesting mild kidney dysfunction. Lipid panel is within normal limits. These metabolic changes are likely related to the use of antipsychotic medications (Seroquel and Invega), which are known to have moderate metabolic side effects. Plan: - Continue monitoring renal function and HbA1c - Reassess metabolic parameters at next follow-up - Consider referral to primary care or endocrinology for management of diabetes if HbA1c remains elevated 08/13/2024 Dinesh Reece presents with worsening anxiety, depression, and sleep disturbances, reporting difficulty pushing himself to engage in activities and feeling on edge and nervous. Generalized Anxiety Disorder Assessment: Patient reports persistent and worsening anxiety symptoms, including feeling on edge, nervous, and having difficulty engaging in activities. These symptoms are consistent with Generalized Anxiety Disorder. The patient has been on vilazodone 20 mg for over 3 weeks, which was selected based on gene site testing showing promise for anxiety, OCD, and panic attacks. No side effects have been reported with the current dosage. Plan: - Increase vilazodone to 40 mg PO daily with food - Reassess efficacy in 4 weeks Major Depressive Disorder Assessment: Patient reports feeling down, indicating ongoing depressive symptoms. The current treatment with vilazodone addresses both anxiety and depression. Plan: - Continue monitoring depressive symptoms - Reassess with vilazodone dose increase Psychotic Disorder Assessment: Patient reports experiencing auditory and visual hallucinations 2-3 times per month, typically occurring in the middle of the night. The patient states he has learned to cope with these experiences. Currently managed with Invega Trinza injections, with the most recent dose administered on July 16, 2024. Plan: - Continue Invega Trinza injections as scheduled - Monitor frequency and impact of hallucinations Insomnia Assessment: Patient reports poor sleep quality, averaging 5-5.5 hours per night with difficulty falling asleep (30-minute latency) and maintaining sleep. Currently using trazodone 200 mg at bedtime, which helps with sleep maintenance but not onset. Plan: - Continue trazodone 200 mg PO at bedtime - Monitor sleep quality with anxiety treatment adjustment 07/21/2024 Other Electronic Prior Authorization was requested for Vilazodone HCl 20 MG Tablet. Provider can order medication once approval received. Plan Of Treatment Pending Test Test Name Order Date LIPID PANEL, STANDARD (7600) 04/02/2024 COMPREHENSIVE METABOLIC PANEL (25362) CBC (INCLUDES DIFF/PLT) (6399) HEMOGLOBIN A1c (496) 04/02/2024 [id number] GENOTYPE (14257) 07/02/2024 Next Appt Details Provider Name:Sarah Becca Marcosvandana davin, 09/17/2024 09:30:00 AM, [address] [facility] [address], [facility] [address], [place], [address], Insurance Providers Payer Name Payer Address Payer Phone Subscriber Number Group Number Insured Name Patient Relationship to Insured Coverage Start Date Coverage End Date [employer] [address] [place] [address] [phone] [id number] COURTNEY REECE Self - patient is the insured Medications Administered Medication Instructions Date of Administration Dosage Notes Invega Sustenna 10/08/2023 156 mg Invega Sustenna 11/05/2023 Invega Sustenna 12/03/2023 156 mg Invega Sustenna 01/06/2024 156 mg Invega Sustenna 10/01/2023 234 mg Invega Trinza 02/06/2024 546 mg Invega Trinza 05/07/2024 819 mg Tabby MKarlos ho tched Invega Trinza 07/16/2024 819 mg Medical (General) History Medical History History ICD Code Schizoaffective disorder, depressive typ e F25.1 Generalized anxiety disorder F41.1 Insomnia due to other mental disorder F5 1.05 Vitamin D deficiency, unspecified E55.9 Benign essential HTN I10 Other retirement (current) drug therapy Z 79.899 Osteoarthritis M19.90 Chronic insomnia F51.04 Mixed hyperlipidemia E78.2 Obstructive sleep apnea (adult) (pediatr ic) G47.33 Type 2 diabetes mellitus wit h hyperglycemia, without long-term current use of insulin E11.65 Subclinical hypothyroidism E03.8 Surgical History Surgery Date(Month/Year) Reconstructive surgery 3 neck/cervical s pine surgeries 03/31/2017
--- OUTSIDE RECORDS SUMMARY | 2024-09-16 06:59 | XMS_ITS ---
Author Name RAÚL MITCHELL Address [address] [place] [address] Phone Organization [facility] Address [address] [place] [address] Phone Care Team Providers Care Space Controller Name Role Phone MD RAÚL MITCHELL Unavailable ALLERGIES, ADVERSE REACTIONS AND ALERTS Allergy Name Allergy Date Allergy Status Allergy Severity Allergy Reaction NO KNOWN DRUG ALLERGIES MEDICATIONS RxNorm Brand Name Prescription Ordered Value Order Unit Start Date Date Status Fill Status Indications 340573 hydrocod one-acet aminophe n 10-325 mg tablet SIG: hydrocodone-ac etaminophen 10-325 mg oral tablet, 30 days, Dispense #60 Tablet, 0 RefillsDirecti ons: Take 1 oral tablet 2 times a day for chronic pain 60 tablet 2021 Current PROBLEMS Problem Code Problem Description Problem Status Problem Da te Problem End Date G89.29-OTHER CHRONIC PAIN OTHER CHRONIC PAIN Chronic 07/31/2021 M54.50-LOW BACK PAIN, UNSPECIFIED LOW BACK PAIN, UNSPECIFIED Chronic 07/31/2021 M47.896-OTHER SPONDYLOSIS, LUMBAR REGION OTHER SPONDYLOSIS, LUMBAR REGION Chronic 07/31/2021 M54.16-RADICULOPATHY, LUMBAR REGION RADICULOPATHY, LUMBAR REGION Chronic 07/31/2021 M54.2-CERVICALGIA CERVICALGIA Chronic 07/31/2021 M54.12-RADICULOPATHY, CERVICAL REGION RADICULOPATHY, CERVICAL REGION Chronic 07/31/2021 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 DEVELOPER SOFTWARE ENGINEER C (CURRENT) USE OF OPIATE ANALGESIC Chronic 07/31/2021 PROCEDURES Procedure Description Date Notes NO PROCEDURES PERFORMED ASSESSMENTS Assessment None PLAN OF TREATMENT Assessment Planned Activity LOINC Planned Anton e None CONSULTATION NOTE Note Author Date None HISTORY AND PHYSICAL NOTE Note Author Date None PROGRESS NOTE Note Author Date None DISCHARGE SUMMARY Note Author Date None CHIEF COMPLAINT AND REASON FOR VISIT FUNCTIONAL STATUS Functional or Cognitive Find ing None MENTAL STATUS Cognitive Finding None ENCOUNTERS Encounter Type Provider Diagnoses Start Date Location None SOCIAL HISTORY Social Status Observation Ex-smoker Sex:Male CARE TEAM INFORMATION Space Controller Provider ID Role Location Phone RAÚL MITCHELL [phone] PHYSICIAN [address], [place] [address]
--- OUTSIDE RECORDS SUMMARY | 2024-09-16 06:59 | XMS_ITS | Continuity of Care Document ---
Author Organization [facility] Address [address] [place] [address] Phone Care Team Providers Care Product Marketing Programs Manager Name Role Phone Shorty Snider MD Unavailable Unavailable Procedures Procedure Date EMERGENCY DEPT VISIT L HRT ARTERY/VENTRICLE ANGIO Advance Directives Directive Yes / No Effective Date File Name No Information Encounters Encounter Description Practice Location Reason(s) For Visit Diagnoses Date Provider Providers Copied on Encounter EMERGENCY DEPT VISIT [facility], [address] [facility], [place], [place], [id number], tel:[phone] [facility] - ED No Information Tylor Oro. [address] [place] [address] Physician Office [place], [place], [facility], . tel:[phone] Referring Provider: Shorty Mayes, [address] [facility] Physician Office [facility], [place], [place], [facility]. tel:[phone] Family History Family Member Type Diagnosis Age At Onset No Information Payers Payer name Insurance type Covered republican ID Authoriza tion(s) No Information Social History [...]
== END 2024-09-16 06:56 | disposition home or self-care (01) ==
PROVIDERS: PCP Family Medicine; Visit Provider Physical Medicine & Rehabilitation Pain Medicine
DX: Z12.2 Encounter for screening for malignant neoplasm of respiratory organs (principal); M47.892 Other spondylosis, cervical region; Z98.1 Arthrodesis status; Z87.891 Personal history of nicotine dependence
CPT/HCPCS: 71271; 72156; A9577

== ENCOUNTER 2024-11-17 02:35 | Day surgery (SDC) | payer OTHER, SELFPAY ==
--- OUTSIDE RECORDS SUMMARY | 2012-12-06 19:00 | XMS_ITS | Continuity of Care Document ---
Author Organization [facility] Address [address] [place] [address] Phone Care Team Providers Care Furniture Crater Name Role Phone Shorty Snider MD Unavailable Unavailable Procedures Procedure Date EMERGENCY DEPT VISIT L HRT ARTERY/VENTRICLE ANGIO Advance Directives Directive Yes / No Effective Date File Name No Information Encounters Encounter Description Practice Location Reason(s) For Visit Diagnoses Date Provider Providers Copied on Encounter EMERGENCY DEPT VISIT [facility], [facility], [address] [facility], [place], [place], [id number], tel:[phone] [facility] - ED No Information Tylor Oro. [address] [place] [address] Physician Office [place], [place], [facility], . tel:[phone] Referring Provider: Shorty Mayes, [address] [facility] Physician Office [facility], [place], [place], [facility]. tel:[phone] Family History Family Member Type Diagnosis Age At Onset No Information Payers Payer name Insurance type Covered constitution party ID Authoriza tion(s) No Information Social History Type Description Quantity Date Captured Comments Sex Male Smoking Status No Information Chief Complaint And Reason For Visit No Information Reason For Referral Reason For Referral No Information History Of Present Illness Encounter Date Complaint History Of Prese nt Illness No Information Functional Status Date Functional Assessmen t No Information Instructions Date Instruction Additional Infor mation No Information Assessments Type Assessment Date No Information Patient Care Teams Name Effective Dates (start - stop) Status Members No Information
[2024-08-27 15:58] VITALS: BMI 30.2
--- OUTSIDE RECORDS SUMMARY | 2024-11-09 05:30 | XMS_ITS ---
Author Organization [facility] Address [address] [place] [address] Care Team Providers Care Business Consultant Name Role Phone RIAN MACHUCA Primary Care Provider Paty Hutson [phone] Allergies No Known Allergies REASON FOR VISIT Right Lumbar Three Lumbar Four Lumbar Four Lumbar Five Facet Joint Injection Diagnostic Medications Medication SIG (Take, Route, Frequency, Duration) Notes Start Date End Date Status oxyCODONE-Acetaminophen 7.5-325 MG 1 tablet Orally twice per day PRN for 30 days 09/15/2024 Active Jardiance 10 MG Oral for 30 Days Active Invega Trinza 819 MG/2.63ML Intramuscular for 84 Days Ac tive traZODone HCl 100 MG Oral for 30 Days Active Encounters Encounter Location Date Provider Diagnosis [facility]-[address] [address] 11/09/2024 Paty Canela Lumbar Spondylosis without Myelopathy M47.816 Assessments Encounter Date Diagnosis (ICD Code) Assessment Notes Treatment Notes Treatment Clinical Notes Section Notes 11/09/2024 Lumbar Spondylosis without Myelopathy (ICD-10 - M47.816) Plan Of Treatment Next Appt Details Provider Name:Bowen Sarabia, 0 11/30/2024 08:00:00 AM, [address] [place], [address], Provider Name:Paty whittaker, 12/07/2024 10:00:00 AM, [address] [place], [address], Provider Name:Paty whittaker, 12/28/2024 10:00:00 AM, [address] [place], [address], Progress Notes * Ilia REECEDOB:1965 (59 yo M)Acc No.[id number]:11/09/2024 Injection Patient: Ilia OSCAR Provider: Alana Canela MD :1965 A ge:59 Y S ex:Male Date:11/09/2024 Address:[address] [place] [address] Pcp:RIAN MACHUCA Subjective: * Chief Complaints: * 1 . Right Lumbar Three Lumbar Four Lumbar Four Lumbar Five Facet Joint Injection Diagnostic. * HPI: C omplaints: PROCEDURE: 1. Facet joint inject ion at L3-4, L4-L5 on the Right. 2. Fluoroscopic imaging for needle placement. 3. Radiographic interpretation: Lumbar Spine. DIAGNOSIS: Lumbar Spondylosis MEDICATION USED: 1. Facet joint local anesthetic: 1-2cc bupivacaine 0.5% per joint. 2. Epidural local anesthetic: 2-3 cc lidocaine 1% as needed for skin infiltration 3. Steroid: 80mg Depomedrol (methylprednisolone) for all joints injected. 4. Contrast agent: Omnipaque-300 3 cc. SUBJECTIVE: This patient presents today for a right L3-4, L4-5 facet joint injection. PROCEDURE DESCRIPTION: Informed consent for the procedure was obtained and the patient signed the procedure consent form. The patient was given sufficient time to ask questions related to the procedure and to discuss expectations and the overall plan of treatment. The patient was brought into the procedure room and placed in the appropriate position for the procedure as noted above. Betadine (or alcohol if the patient carried an iodine allergy history) was used to prepare the skin over the appropriate location for the injection and sterile drapes were applied. Strict aseptic technique was followed during the procedure. A 22 Ga spinal needle was used for the procedure. This was advanced from a lateral position and angled into the joint under oblique fluoroscopic views used to sharpen joint margins. Once needle placement was confirmed within the joint, the arthrogram was performed and reported below. Then the patient received the steroid and local anesthetic as noted for each joint injected above after careful aspiration for blood. The patient had no ill effects from the procedure. Vital signs were monitored and found to be stable throughout. The patient was taken to and watched in the recovery area for an appropriate period of time and then released to home once discharge criteria were met and discharge planning/subsequent appointments were made. FLUOROSCOPIC IMAGING FINDINGS: An initial survey of the spine in the area noted was performed with the C-arm fluoroscope. The following were noted: 1. moderate degenerative changes of the lumbosacral spine. JOINT ARTHROGRAM: 1. Contrast was seen to spread evenly within the joint COMPLICATIONS: NONE RESULTS: 50% pain relief achieved PLAN: 1. Follow post procedure instructions and complete post procedure diary. 2. Continue on present medications. 3. Follow up by telephone in a few days and return for follow up appointment within several weeks to check on response to the injection or to repeat the injection and to make any necessary medication adjustment and determine subsequent treatment steps. * Medical History: D iabetes, Sleep Apnea, Headaches, Depression, Schizophrenia, Bipolar Disorder. * Medications: T aking traZODone HCl 100 MG Tablet Oral , Taking Invega Trinza 819 MG/2.63ML Suspension Prefilled Syringe Intramuscular , Taking Jardiance 10 MG Tablet Oral , Taking oxyCODONE-Acetaminophen 7.5-325 MG Tablet 1 tablet Orally twice per day PRN * Allergies: N .K.D.A. Objective: * Vitals: Assessment: * Assessment: 1. L umbar Spondylosis without Myelopathy - M47.816 (Primary) Plan: * Treatment: * Procedures: S acrolized L5 Endplate changes to L5 Moderate to advanced spondylosis at L3-4 and L4-5. * Procedure Codes: 6 4493 INJ PARAVERT F JNT L/S 1 LEV, Modifiers: RT , 14702 INJ PARAVERT F JNT L/S 2 LEV, Modifiers: RT , 35521 X-RAY EXAM OF LOWER SPINE, J1010 Injection, methylprednisolone acetate, 1 mg, Units: 80.00 , Modifiers: JZ * * Electronic signature of Paty Canela MD on 11/17/2024 at 02:38 AM CDT Sign off status: Pending * Provider: Alana Canela MD Date: 0 11/09/2024 Generated for Erika gottlieb/Iveth/Iraitting on: 0 11/17/2024 02:38 AM CDT History and Physical Notes * HPI (History of Present Illness) Category Sub-Category Detail Notes Category Not es Complaints PROCEDURE: 1. Facet joint inject ion at L3-4, L4-L5 on the Right. 2. Fluoroscopic imaging for needle placement. 3. Radiographic interpretation: Lumbar Spine. DIAGNOSIS: Lumbar Spondylosis MEDICATION USED: 1. Facet joint local anesthetic: 1-2cc bupivacaine 0.5% per joint. 2. Epidural local anesthetic: 2-3 cc lidocaine 1% as needed for skin infiltration 3. Steroid: 80mg Depomedrol (methylprednisolone) for all joints injected. 4. Contrast agent: Omnipaque-300 3 cc. SUBJECTIVE: This patient presents today for a right L3-4, L4-5 facet joint injection. PROCEDURE DESCRIPTION: Informed consent for the procedure was obtained and the patient signed the procedure consent form. The patient was given sufficient time to ask questions related to the procedure and to discuss expectations and the overall plan of treatment. The patient was brought into the procedure room and placed in the appropriate position for the procedure as noted above. Betadine (or alcohol if the patient carried an iodine allergy history) was used to prepare the skin over the appropriate location for the injection and sterile drapes were applied. Strict aseptic technique was followed during the procedure. A 22 Ga spinal needle was used for the procedure. This was advanced from a lateral position and angled into the joint under oblique fluoroscopic views used to sharpen joint margins. Once needle placement was confirmed within the joint, the arthrogram was performed and reported below. Then the patient received the steroid and local anesthetic as noted for each joint injected above after careful aspiration for blood. The patient had no ill effects from the procedure. Vital signs were monitored and found to be stable throughout. The patient was taken to and watched in the recovery area for an appropriate period of time and then released to home once discharge criteria were met and discharge planning/subsequent appointments were made. FLUOROSCOPIC IMAGING FINDINGS: An initial survey of the spine in the area noted was performed with the C-arm fluoroscope. The following were noted: 1. moderate degenerative changes of the lumbosacral spine. JOINT ARTHROGRAM: 1. Contrast was seen to spread evenly within the joint COMPLICATIONS: NONE RESULTS: 50% pain relief achieved PLAN: 1. Follow post procedure instructions and complete post procedure diary. 2. Continue on present medications. 3. Follow up by telephone in a few days and return for follow up appointment within several weeks to check on response to the injection or to repeat the injection and to make any necessary medication adjustment and determine subsequent treatment steps.
--- OUTSIDE RECORDS SUMMARY | 2024-11-11 03:00 | XMS_ITS ---
Author Organization [facility] [place] [facility] Address [address] [place] [address] Care Team Providers Care Bus Steward Name Role Phone RIAN MACHUCA Primary Care Provider UnavailPaty Francois Unavailable [phone] Bowen Sarabia Unavailable [phone] REASON FOR VISIT 4 Wks Medications Medication SIG (Take, Route, Frequency, Duration) Notes Start Date End Date Status oxyCODONE-Acetaminophen 7.5-325 MG 1 tablet Orally twice per day PRN for 30 days 09/15/2024 Active Jardiance 10 MG Oral for 30 Days Active Invega Trinza 819 MG/2.63ML Intramuscular for 84 Days Ac tive traZODone HCl 100 MG Oral for 30 Days Active Encounters Encounter Location Date Provider Diagnosis [facility] [address] [place] [address] 11/11/2024 Bowen Sarabia Lumbar Spondylosis without Myelopathy M47.816 and Other intervertebral disc degeneration, 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 Assessments Encounter Date Diagnosis (ICD Code) Assessment Notes Treatment Notes Treatment Clinical Notes Section Notes 11/11/2024 Lumbar Spondylosis without Myelopathy (ICD-10 - M47.816) Assessment is unchanged from 10/12/24 except as denoted below. 11/11/2024 Other intervertebral disc degeneration, lumbar region with discogenic back pain only (ICD-10 - M51.360) Assessment is unchanged from 10/12/24 except as denoted below. 11/11/2024 Other Notes: Significant time was spent due to complex decision-making as a result of the patient's complicated pain issues. The plan is as follows: Patient will continue exercise therapy regimen. Reviewed most recent drug screen report which shows no concerning abnormalities Will refill pt's oxycodone-acetami nophen as it improves pain and function without significant side effects. Will obtain drug screen today. Will schedule the patient for a left L3/4 and L2/3 diagnostic facet joint injection to target their axial LBP stemming from lumbar spondylosis. We will plan for a lumbar MB nerve RFA in the future. Discussed procedure details, risks, benefits, alternatives and expected outcomes with the patient. The patient expresses understanding and all patient questions were answered to their satisfaction. We discussed radiofrequency ablation (RFA) as a good option for pain relief from the patient's LUMBAR spondylosis. We reviewed the procedure details, risks, benefits, and alternatives of the procedure with the patient. We explained to the patient that 2 diagnostic injections must be performed with significant pain relief before scheduling the RFA. Explained to the patient that sedation is given for the RFA, and a furniture delivery driver will be needed on procedure day. The patient expresses understanding. All patient questions were answered to patient's satisfaction. The patient recently did have a successful right L3/4 and L4/5 diagnostic facet joint injection. Will schedule the patient for a right L 3,4,5 MBB x1 en route to MB nerve RFA. Follow-up in 4 weeks for medication management and reassessment of treatment plan. Patient advised to contact the clinic if they develop any new or worsening pain/symptoms. The total encounter time for today's visit was 30 minutes which was spent on preparation for the visit, e.g. chart review, and in the activities documented in this note. Please refer back to the HPI and physical exam sections of this note for further details regarding this encounter. Assessment is unchanged from 10/12/24 except as denoted below. Plan Of Treatment Treatment Notes Assessment Notes Other Notes: Significant time was spent due to complex decision-making as a result of the patient's complicated pain issues. The plan is as follows: Patient will continue exercise therapy regimen. Reviewed most recent drug screen report which shows no concerning abnormalities Will refill pt's oxycodone-acetaminophen as it improves pain and function without significant side effects. Will obtain drug screen today. Will schedule the patient for a left L3/4 and L2/3 diagnostic facet joint injection to target their axial LBP stemming from lumbar spondylosis. We will plan for a lumbar MB nerve RFA in the future. Discussed procedure details, risks, benefits, alternatives and expected outcomes with the patient. The patient expresses understanding and all patient questions were answered to their satisfaction. We discussed radiofrequency ablation (RFA) as a good option for pain relief from the patient's LUMBAR spondylosis. We reviewed the procedure details, risks, benefits, and alternatives of the procedure with the patient. We explained to the patient that 2 diagnostic injections must be performed with significant pain relief before scheduling the RFA. Explained to the patient that sedation is given for the RFA, and a furniture delivery driver will be needed on procedure day. The patient expresses understanding. All patient questions were answered to patient's satisfaction. The patient recently did have a successful right L3/4 and L4/5 diagnostic facet joint injection. Will schedule the patient for a right L 3,4,5 MBB x1 en route to MB nerve RFA. Follow-up in 4 weeks for medication management and reassessment of treatment plan. Patient advised to contact the clinic if they develop any new or worsening pain/symptoms. The total encounter time for today's visit was 30 minutes which was spent on preparation for the visit, e.g. chart review, and in the activities documented in this note. Please refer back to the HPI and physical exam sections of this note for further details regarding this encounter. Next Appt Details Provider Name:Bowen Sarabia, Adina 11/30/2024 08:00:00 AM, [address] [place] [address], [address], Provider Name:Paty whittaker, 12/07/2024 10:00:00 AM, [address] [place], [address], Provider Name:Paty whittaker, 12/28/2024 10:00:00 AM, [address] [place], [address], Progress Notes * Ilia REECEDOB:1965 (59 yo M)Acc No.[id number]:11/11/2024 Progress Notes Patient: Ilia OSCAR Provider: CHLOE Reyes :1965 A ge:59 Y S ex:Male Date:11/11/2024 Address:[facility] Pcp:RIAN MACHUCA Subjective: * Chief Complaints: * 1 . 4 Wks. * HPI: C omplaints: On a scale of 1-10 how would you rate your pain today? Patient reports pain rated at a level 8/10. Where is your pain today and how long has the pain been present? Patient reports pain located low back without radiation to his BLE How would you describe your pain, is it aching, stabbing, dull, sharp or burning? Patient reports aching pain Is there anything that you do that makes the pain better? Patient reports the pain decreases with changing positions often Is there anything that you do that makes the pain worse? Patient reports the pain increases with staying in one position for too long What daily activities does your pain make more difficult? 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 Patient reports obtaining 6-7 hours of sleep per night. Is the pain causing you to wake up at night, if so how often? Patient reports he may wake up severl times over night due to pain. What medications are you currently taking to manage the pain and how long have you been taking these medications? Patient reports taking only oxycodone-acetaminophen for several years. Have you had any injections recently and if you have, how much relief have you gotten from those? Patient reports the R L34 L45 dx injfection on 11/09/2024 improved pain by 80% for 1 day, now about 50% improvement Have you had any recent falls? Patient reports no recent falls. The pain disability index score at today's visit is: 51 pt denies additional complaints at this time. * Medical History: * Medications: T aking traZODone HCl 100 MG Tablet Oral , Taking Invega Trinza 819 MG/2.63ML Suspension Prefilled Syringe Intramuscular , Taking Jardiance 10 MG Tablet Oral , Taking oxyCODONE-Acetaminophen 7.5-325 MG Tablet 1 tablet Orally twice per day PRN Objective: * Vitals: * Examination: G eneral Examination: P hysical exam is unchanged from 10/12/24 except as denoted below. GENERAL APPEARANCE: well developed, well nourished, alert, and cooperative; in no apparent distress HEAD: normocephalic, atraumatic EYES: sclera non-icteric, extra ocular eye movements intact CHEST: respiratory rate normal, no signs of respiratory distress SKIN: no suspicious lesions, no rashes, no edema NEURO: Normal speech; walking unassisted without a cane or a walker Back: -Bilateral L3/4 and L4/5 facet tenderness -Positive bilateral facet loading test -No disc space tenderness -No SI tenderness. Assessment: * Assessment: 1. L umbar Spondylosis without Myelopathy - M47.816 (Primary) 2 . O ther intervertebral disc degeneration, lumbar region with discogenic back pain only - M51.360 ? Assessment is unchanged from 10/12/24 except as denoted below. Plan: * Treatment: * * Electronic signature of CHLOE Rasheed on 11/17/2024 at 02:38 AM CDT Sign off status: Pending * Provider: CHLOE Reyes Date: 11/11/2024 Generated for Erika gottlieb/Iveth/Florencia on: 11/17/2024 02:38 AM CDT History and Physical Notes * Examination Category Sub-Category Detail Notes Category Not es General Examination Physical exam is unchanged from 10/12/24 except as denoted below. GENERAL APPEARANCE: well developed, well nourished, alert, and cooperative; in no apparent distress HEAD: normocephalic, atraumatic EYES: sclera non-icteric, extra ocular eye movements intact CHEST: respiratory rate normal, no signs of respiratory distress SKIN: no suspicious lesions, no rashes, no edema NEURO: Normal speech; walking unassisted without a cane or a walker Back: -Bilateral L3/4 and L4/5 facet tenderness -Positive bilateral facet loading test -No disc space tenderness -No SI tenderness
--- OUTSIDE RECORDS SUMMARY | 2024-11-12 04:45 | XMS_ITS ---
Author Organization [facility] Address [address] [place] [address] [address] Care Team Providers Care Insecticide Sprayer Name Role Phone Deeapk Plunkett MD Primary Care Provider Unavail Sarah Bowden Unavailable [phone] REASON FOR VISIT 1 month f/u & Injection Social History Sex Assigned At : Social History Observation Description Sex Assigned At Male Encounters Encounter Location Date Provider Diagnosis [facility] [address] [address] 11/12/2024 Sarah Bustos Plan Of Treatment Next Appt Details Provider Name:Sarah jin, 12/22/2024 08:45:00 AM, [address] [place] [address] [address], [address], [address], Provider Name:Tay Finley , 12/22/2024 09:00:00 AM, [address] [place] [address], [address], [address], Progress Notes * DOMINIK REECESAVANADOB:1965 (59 yo M)Acc No.[id number]:11/12/2024 Patient: COURTNEY OSCAR Provider: Yeyo Bustos :1965 A ge:59 Y S ex:Male Date:11/12/2024 [facility] [facility] Pcp:Deepak Plunkett MD Subjective: * Chief Complaints: * 1 month f/u & Injection Billing Information: * Procedure Codes: * Electronic signature of Preet Bustos on 11/17/2024 at 02:38 AM CDT Sign off status: Pending * Provider: Yeyo Bustos Date: 0 11/12/2024 Generated for Erika Gongora on: 0 11/17/2024 02:38 AM CDT
--- OUTSIDE RECORDS SUMMARY | 2024-11-17 02:38 | XMS_ITS | Clinical Summary ---
Author Organization [facility] Address [address] [place] [address] Care Team Providers Care Franchise Sales Director Name Role Phone Unavailable Primary Care Provider Unavailabl e Source Comments [facility],non-owned Affiliates and Associated Physician Practices is amultiple site organization consisting of ambulatory clinics and hospital sitesin [place], [place], [place] and [place]. This disclosure is being madepursuant to the Care Everywhere program and may not contain all information available regarding this patient. Last updated 17.[facility] Eve Social History Tobacco Use Types Packs/Day Years [...] season) 2023 DEPRESSION SCREENING 03/31/2024 INFLUENZA VACCINE (#1) 2024 HIB VACCINE Aged Out No longer [...]
--- OUTSIDE RECORDS SUMMARY | 2024-11-17 02:38 | XMS_ITS | Encounter Summary ---
Author Organization [facility] Address [address] [place] [address] Care Team Providers Care Senior Office Assistant Name Role Phone Ginette Childs [place] Unavailable + [phone] Tay Finley MD Unavailable [phone] Sadi Cisneros MD Primary Care Provider Reason for Referral * Sleep Medicine (Routine) - Pending Review Specialty Diagnoses / Procedures Referred By Francheska novoa Referred To Contact Diagnoses QUYEN on CPAP Procedures Portable/Home Sleep Study Sadi Cisneros MD [address] [place] [address] [address] [place] [address] Phone: tel: fax: External Order Referral ID Status Reason Start Date Expiration Date V isits Requested Visits Authorized [id number] Pending Review 11/15/2024 12/15/2025 1 1 Encounter Details Date Type Department Care Team (Late st Contact Info) Description 11/15/2024 Orders Only [facility] Primary Care at [address] [address] Sadi Cisneros MD [address] [place] [address] [address] [place] [address] QUYEN on CPAP (Primary Dx) Social History Tobacco Use Types Packs/Day Years Used Date Smoking Tobacco: Former Cigarettes 1.5 20 0 03/1996 - 03/2016 Smokeless Tobacco: Never AUDIT-C Answer Date Recorded Q1: How often [...] points, staff should administer the PHQ-9) 0 11/15/2024 Sex and Gender Information Value Date Recorded Sex Assigned at Not on file Legal Sex Male 1:00 PM CDT Gender Identity Not on file Sexual Orientation Not on file documented as of this encounter Plan of Treatment Scheduled Orders Name Type Priority Associated Diagnoses Orde r Schedule Portable/Home Sleep Study Sleep Center Routine QUYEN on CPAP 1 Occurrences starting 11/15/2024 until 11/15/2025 documented as of this encounter Visit Diagnoses Diagnosis QUYEN on CPAP- Primary documented in this encounter Care Teams Senior Office Assistant Relationship Specialty Start Date End Date Sadi Cisneros MD [address] [facility] [address] [place] [address] PCP - General Family Medicine 09/08/24 Ginette Childs CNM [address] [place] [address] Nurse Practitioner Psychiatry 04/22/23 Tay Filney MD [address] [place] [address] Referring Physician Psychiatry 07/12/24 documented as of this encounter
--- OUTSIDE RECORDS SUMMARY | 2024-11-17 02:38 | XMS_ITS ---
Author Name RAÚL MITCHELL Address [address] [place] [address] Phone Organization [facility] Address [address] [place] [address] Phone Care Team Providers Care Cardiology Physician Assistant Name Role Phone MD RAÚL MITCHELL Unavailable ALLERGIES, ADVERSE REACTIONS AND ALERTS Allergy Name Allergy Date Allergy Status Allergy Severity Allergy Reaction NO KNOWN DRUG ALLERGIES MEDICATIONS RxNorm Brand Name Prescription Ordered Value Order Unit Start Date Date Status Fill Status Indications 513108 hydrocod one-acet aminophe n 10-325 mg tablet [...] CERVICAL REGION RADICULOPATHY, CERVICAL REGION Chronic 07/31/2021 Z79.891-FCI (CURRENT) USE OF 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
--- OUTSIDE RECORDS SUMMARY | 2024-11-17 02:39 | XMS_ITS | Patient Health Record ---
Author Organization [facility] Address [address] [place] [address] Care Team Providers Care Semiconductor Assembler Name Role Phone BRIGETTEJUSTICE PERSONAY Primary Care Provider Paty Hutson Unavailable [phone] Cornell Bowen Unavailable [phone] Radhika Smith Unavailable [phone] Allergies No Known Allergies Results Component Value Reference Range Notes Results Reviewed date:06/17/2024 10:13:17 AM Interpretation: Performing Lab: Notes/Report: CODEINE <50 50 ng/mL MORPHINE <50 50 ng/mL HYDROCODONE <50 50 ng/mL NORHYDROCODONE <50 50 ng/mL HYDROMORPHONE <50 50 ng/mL OXYCODONE <50 50 ng/mL NOROXYCODONE <50 50 ng/mL OXYMORPHONE <50 50 ng/mL FENTANYL <2.0 2.0 ng/mL FENTANYL METABOLITE <10.0 10.0 ng/mL MEPERIDINE <75 75 ng/mL MEPERIDINE METABOLITE <75 75 ng/mL TRAMADOL <75 75 ng/mL TRAMADOL METABOLITE <75 75 ng/mL BUPRENORPHINE <5.0 5.0 ng/mL BUPRENORPHINE METABOLITE <10.0 10.0 ng/mL NALOXONE <25 25 ng/mL METHADONE <75 75 ng/mL EDDP <75 75 ng/mL TAPENTADOL <75 75 ng/mL PENTAZOCINE <50 50 ng/mL NALTREXONE <10 10 ng/mL CLONAZEPAM METABOLITE <40 40 ng/mL ALPRAZOLAM METABOLITE <40 40 ng/mL NORDIAZEPAM <40 40 ng/mL TEMAZEPAM <40 40 ng/mL OXAZEPAM <40 40 ng/mL LORAZEPAM <40 40 ng/mL TRIAZOLAM METABOLITE <40 40 ng/mL COCAINE METABOLITE (BE) <50 50 ng/mL HEROIN METABOLITE (6-AM) <10.0 10.0 ng/mL PHENCYCLIDINE (PCP) <10.0 10.0 ng/mL cTHC <10.0 10.0 ng/mL MDMA <100 100 ng/mL MDA <100 100 ng/mL MDEA <100 100 ng/mL METHAMPHETAMINE <100 100 ng/mL AMPHETAMINE <100 100 ng/mL PHENTERMINE <100 100 ng/mL RITALINIC ACID <100 100 ng/mL ETHYL SULFATE 717 500 ng/mL ETHYL GLUCURONIDE 3238 500 ng/mL TRAZODONE 1442 50 ng/mL Specimen Validity Reviewed date:06/17/2024 10:13:17 AM Interpretation: Performing Lab: Notes/Report: Creatinine 53.49 > 20 mg/dL mg/dL Oxidants NOT DETECTED < 200 ug/mL ug/mL pH 5.05 4.50-9.50 Specific [place] 1.010 1.003-1.050 PDF Reviewed date:06/17/2024 10:13:17 AM Interpretation: Performing Lab: Notes/Report: Results Reviewed date:08/30/2024 10:04:20 AM Interpretation: Performing Lab: Notes/Report: CODEINE <50 50 ng/mL MORPHINE <50 50 ng/mL HYDROCODONE <50 50 ng/mL NORHYDROCODONE <50 50 ng/mL HYDROMORPHONE <50 50 ng/mL OXYCODONE <50 50 ng/mL NOROXYCODONE <50 50 ng/mL OXYMORPHONE <50 50 ng/mL FENTANYL <2.0 2.0 ng/mL FENTANYL METABOLITE <10.0 10.0 ng/mL MEPERIDINE <75 75 ng/mL MEPERIDINE METABOLITE <75 75 ng/mL TRAMADOL <75 75 ng/mL TRAMADOL METABOLITE <75 75 ng/mL BUPRENORPHINE <5.0 5.0 ng/mL BUPRENORPHINE METABOLITE <10.0 10.0 ng/mL NALOXONE <25 25 ng/mL METHADONE <75 75 ng/mL EDDP <75 75 ng/mL TAPENTADOL <75 75 ng/mL PENTAZOCINE <50 50 ng/mL NALTREXONE <10 10 ng/mL CLONAZEPAM METABOLITE <40 40 ng/mL ALPRAZOLAM METABOLITE <40 40 ng/mL NORDIAZEPAM <40 40 ng/mL TEMAZEPAM <40 40 ng/mL OXAZEPAM <40 40 ng/mL LORAZEPAM <40 40 ng/mL TRIAZOLAM METABOLITE <40 40 ng/mL COCAINE METABOLITE (BE) <50 50 ng/mL HEROIN METABOLITE (6-AM) <10.0 10.0 ng/mL PHENCYCLIDINE (PCP) <10.0 10.0 ng/mL cTHC <10.0 10.0 ng/mL MDMA <100 100 ng/mL MDA <100 100 ng/mL MDEA <100 100 ng/mL METHAMPHETAMINE <100 100 ng/mL AMPHETAMINE <100 100 ng/mL PHENTERMINE <100 100 ng/mL RITALINIC ACID <100 100 ng/mL ETHYL SULFATE 9568 500 ng/mL ETHYL GLUCURONIDE 84523 500 ng/mL TRAZODONE 2527 50 ng/mL Specimen Validity Reviewed date:08/30/2024 10:04:20 AM Interpretation: Performing Lab: Notes/Report: Creatinine 90.39 > 20 mg/dL mg/dL Oxidants NOT DETECTED < 200 ug/mL ug/mL pH 5.18 4.50-9.50 Specific [place] 1.013 1.003-1.050 PDF Reviewed date:08/30/2024 10:04:20 AM Interpretation: Performing Lab: Notes/Report: Results Reviewed date:08/09/2024 10:07:52 AM Interpretation: Performing Lab: Notes/Report: CODEINE <50 50 ng/mL MORPHINE <50 50 ng/mL HYDROCODONE <50 50 ng/mL NORHYDROCODONE <50 50 ng/mL HYDROMORPHONE <50 50 ng/mL OXYCODONE <50 50 ng/mL NOROXYCODONE <50 50 ng/mL OXYMORPHONE <50 50 ng/mL FENTANYL <2.0 2.0 ng/mL FENTANYL METABOLITE <10.0 10.0 ng/mL MEPERIDINE <75 75 ng/mL MEPERIDINE METABOLITE <75 75 ng/mL TRAMADOL <75 75 ng/mL TRAMADOL METABOLITE <75 75 ng/mL BUPRENORPHINE <5.0 5.0 ng/mL BUPRENORPHINE METABOLITE <10.0 10.0 ng/mL NALOXONE <25 25 ng/mL METHADONE <75 75 ng/mL EDDP <75 75 ng/mL TAPENTADOL <75 75 ng/mL PENTAZOCINE <50 50 ng/mL NALTREXONE <10 10 ng/mL CLONAZEPAM METABOLITE <40 40 ng/mL ALPRAZOLAM METABOLITE <40 40 ng/mL NORDIAZEPAM <40 40 ng/mL TEMAZEPAM <40 40 ng/mL OXAZEPAM <40 40 ng/mL LORAZEPAM <40 40 ng/mL TRIAZOLAM METABOLITE <40 40 ng/mL COCAINE METABOLITE (BE) <50 50 ng/mL HEROIN METABOLITE (6-AM) <10.0 10.0 ng/mL PHENCYCLIDINE (PCP) <10.0 10.0 ng/mL cTHC <10.0 10.0 ng/mL MDMA <100 100 ng/mL MDA <100 100 ng/mL MDEA <100 100 ng/mL METHAMPHETAMINE <100 100 ng/mL AMPHETAMINE <100 100 ng/mL PHENTERMINE <100 100 ng/mL RITALINIC ACID <100 100 ng/mL ETHYL SULFATE <500 500 ng/mL ETHYL GLUCURONIDE <500 500 ng/mL TRAZODONE 1785 50 ng/mL Specimen Validity Reviewed date:08/09/2024 10:07:52 AM Interpretation: Performing Lab: Notes/Report: Creatinine 81.49 > 20 mg/dL mg/dL Oxidants NOT DETECTED < 200 ug/mL ug/mL pH 5.73 4.50-9.50 Specific [place] 1.011 1.003-1.050 PDF Reviewed date:08/09/2024 10:07:52 AM Interpretation: Performing Lab: Notes/Report: Results (Not yet reviewed by provider) Interpretation: Performing Lab: Notes/Report: CODEINE <50 50 ng/mL MORPHINE <50 50 ng/mL HYDROCODONE <50 50 ng/mL NORHYDROCODONE <50 50 ng/mL HYDROMORPHONE <50 50 ng/mL OXYCODONE <50 50 ng/mL NOROXYCODONE <50 50 ng/mL OXYMORPHONE <50 50 ng/mL FENTANYL <2.0 2.0 ng/mL FENTANYL METABOLITE <10.0 10.0 ng/mL MEPERIDINE <75 75 ng/mL MEPERIDINE METABOLITE <75 75 ng/mL TRAMADOL <75 75 ng/mL TRAMADOL METABOLITE <75 75 ng/mL BUPRENORPHINE <5.0 5.0 ng/mL BUPRENORPHINE METABOLITE <10.0 10.0 ng/mL NALOXONE <25 25 ng/mL METHADONE <75 75 ng/mL EDDP <75 75 ng/mL TAPENTADOL <75 75 ng/mL PENTAZOCINE <50 50 ng/mL NALTREXONE <10 10 ng/mL CLONAZEPAM METABOLITE <40 40 ng/mL ALPRAZOLAM METABOLITE <40 40 ng/mL NORDIAZEPAM <40 40 ng/mL TEMAZEPAM <40 40 ng/mL OXAZEPAM <40 40 ng/mL LORAZEPAM <40 40 ng/mL TRIAZOLAM METABOLITE <40 40 ng/mL COCAINE METABOLITE (BE) <50 50 ng/mL HEROIN METABOLITE (6-AM) <10.0 10.0 ng/mL PHENCYCLIDINE (PCP) <10.0 10.0 ng/mL cTHC <10.0 10.0 ng/mL MDMA <100 100 ng/mL MDA <100 100 ng/mL MDEA <100 100 ng/mL METHAMPHETAMINE <100 100 ng/mL AMPHETAMINE <100 100 ng/mL PHENTERMINE <100 100 ng/mL RITALINIC ACID <100 100 ng/mL ETHYL SULFATE <500 500 ng/mL ETHYL GLUCURONIDE <500 500 ng/mL TRAZODONE 551 50 ng/mL Specimen Validity (Not yet r eviewed by provider) Interpretation: Performing Lab: Notes/Report: Creatinine 72.12 > 20 mg/dL mg/dL Oxidants NOT DETECTED < 200 ug/mL ug/mL pH 5.34 4.50-9.50 Specific [place] 1.011 1.003-1.050 PDF (Not yet reviewed by pro vider) Interpretation: Performing Lab: Notes/Report: Results (Not yet reviewed by provider) Interpretation: Performing Lab: Notes/Report: CODEINE <50 50 ng/mL MORPHINE <50 50 ng/mL HYDROCODONE <50 50 ng/mL NORHYDROCODONE <50 50 ng/mL HYDROMORPHONE <50 50 ng/mL OXYCODONE <50 50 ng/mL NOROXYCODONE <50 50 ng/mL OXYMORPHONE <50 50 ng/mL FENTANYL <2.0 2.0 ng/mL FENTANYL METABOLITE <10.0 10.0 ng/mL MEPERIDINE <75 75 ng/mL MEPERIDINE METABOLITE <75 75 ng/mL TRAMADOL <75 75 ng/mL TRAMADOL METABOLITE <75 75 ng/mL BUPRENORPHINE <5.0 5.0 ng/mL BUPRENORPHINE METABOLITE <10.0 10.0 ng/mL NALOXONE <25 25 ng/mL METHADONE <75 75 ng/mL EDDP <75 75 ng/mL TAPENTADOL <75 75 ng/mL PENTAZOCINE <50 50 ng/mL NALTREXONE <10 10 ng/mL CLONAZEPAM METABOLITE <40 40 ng/mL ALPRAZOLAM METABOLITE <40 40 ng/mL NORDIAZEPAM <40 40 ng/mL TEMAZEPAM <40 40 ng/mL OXAZEPAM <40 40 ng/mL LORAZEPAM <40 40 ng/mL TRIAZOLAM METABOLITE <40 40 ng/mL COCAINE METABOLITE (BE) <50 50 ng/mL HEROIN METABOLITE (6-AM) <10.0 10.0 ng/mL PHENCYCLIDINE (PCP) <10.0 10.0 ng/mL cTHC <10.0 10.0 ng/mL MDMA <100 100 ng/mL MDA <100 100 ng/mL MDEA <100 100 ng/mL METHAMPHETAMINE <100 100 ng/mL AMPHETAMINE <100 100 ng/mL PHENTERMINE <100 100 ng/mL RITALINIC ACID <100 100 ng/mL ETHYL SULFATE <500 500 ng/mL ETHYL GLUCURONIDE <500 500 ng/mL TRAZODONE 1951 50 ng/mL Specimen Validity (Not yet r eviewed by provider) Interpretation: Performing Lab: Notes/Report: Creatinine 89.67 > 20 mg/dL mg/dL Oxidants NOT DETECTED < 200 ug/mL ug/mL pH 4.99 4.50-9.50 Specific [place] 1.017 1.003-1.050 PDF (Not yet reviewed by pro vider) Interpretation: Performing Lab: Notes/Report: Results (Not yet reviewed by provider) Interpretation: Performing Lab: Notes/Report: CODEINE <50 50 ng/mL MORPHINE <50 50 ng/mL HYDROCODONE <50 50 ng/mL NORHYDROCODONE <50 50 ng/mL HYDROMORPHONE <50 50 ng/mL OXYCODONE <50 50 ng/mL NOROXYCODONE <50 50 ng/mL OXYMORPHONE <50 50 ng/mL FENTANYL <2.0 2.0 ng/mL FENTANYL METABOLITE <10.0 10.0 ng/mL MEPERIDINE <75 75 ng/mL MEPERIDINE METABOLITE <75 75 ng/mL TRAMADOL <75 75 ng/mL TRAMADOL METABOLITE <75 75 ng/mL BUPRENORPHINE <5.0 5.0 ng/mL BUPRENORPHINE METABOLITE <10.0 10.0 ng/mL NALOXONE <25 25 ng/mL METHADONE <75 75 ng/mL EDDP <75 75 ng/mL TAPENTADOL <75 75 ng/mL PENTAZOCINE <50 50 ng/mL NALTREXONE <10 10 ng/mL CLONAZEPAM METABOLITE <40 40 ng/mL ALPRAZOLAM METABOLITE <40 40 ng/mL NORDIAZEPAM <40 40 ng/mL TEMAZEPAM <40 40 ng/mL OXAZEPAM <40 40 ng/mL LORAZEPAM <40 40 ng/mL TRIAZOLAM METABOLITE <40 40 ng/mL COCAINE METABOLITE (BE) <50 50 ng/mL HEROIN METABOLITE (6-AM) <10.0 10.0 ng/mL PHENCYCLIDINE (PCP) <10.0 10.0 ng/mL cTHC <10.0 10.0 ng/mL MDMA <100 100 ng/mL MDA <100 100 ng/mL MDEA <100 100 ng/mL METHAMPHETAMINE <100 100 ng/mL AMPHETAMINE <100 100 ng/mL PHENTERMINE <100 100 ng/mL RITALINIC ACID <100 100 ng/mL ETHYL SULFATE <500 500 ng/mL ETHYL GLUCURONIDE <500 500 ng/mL TRAZODONE 2289 50 ng/mL Specimen Validity (Not yet r eviewed by provider) Interpretation: Performing Lab: Notes/Report: Creatinine 80.91 > 20 mg/dL mg/dL Oxidants NOT DETECTED < 200 ug/mL ug/mL pH 5.02 4.50-9.50 Specific [place] 1.017 1.003-1.050 PDF (Not yet reviewed by pro vider) Interpretation: Performing Lab: Notes/Report: Results (Not yet reviewed by provider) Interpretation: Performing Lab: Notes/Report: CODEINE <50 50 ng/mL MORPHINE <50 50 ng/mL HYDROCODONE <50 50 ng/mL NORHYDROCODONE <50 50 ng/mL HYDROMORPHONE <50 50 ng/mL OXYCODONE <50 50 ng/mL NOROXYCODONE <50 50 ng/mL OXYMORPHONE <50 50 ng/mL FENTANYL <2.0 2.0 ng/mL FENTANYL METABOLITE <10.0 10.0 ng/mL MEPERIDINE <75 75 ng/mL MEPERIDINE METABOLITE <75 75 ng/mL TRAMADOL <75 75 ng/mL TRAMADOL METABOLITE <75 75 ng/mL BUPRENORPHINE <5.0 5.0 ng/mL BUPRENORPHINE METABOLITE <10.0 10.0 ng/mL NALOXONE <25 25 ng/mL METHADONE <75 75 ng/mL EDDP <75 75 ng/mL TAPENTADOL <75 75 ng/mL PENTAZOCINE <50 50 ng/mL NALTREXONE <10 10 ng/mL CLONAZEPAM METABOLITE <40 40 ng/mL ALPRAZOLAM METABOLITE <40 40 ng/mL NORDIAZEPAM <40 40 ng/mL TEMAZEPAM <40 40 ng/mL OXAZEPAM <40 40 ng/mL LORAZEPAM <40 40 ng/mL TRIAZOLAM METABOLITE <40 40 ng/mL COCAINE METABOLITE (BE) <50 50 ng/mL HEROIN METABOLITE (6-AM) <10.0 10.0 ng/mL PHENCYCLIDINE (PCP) <10.0 10.0 ng/mL cTHC <10.0 10.0 ng/mL MDMA <100 100 ng/mL MDA <100 100 ng/mL MDEA <100 100 ng/mL METHAMPHETAMINE <100 100 ng/mL AMPHETAMINE <100 100 ng/mL PHENTERMINE <100 100 ng/mL RITALINIC ACID <100 100 ng/mL ETHYL SULFATE <500 500 ng/mL ETHYL GLUCURONIDE <500 500 ng/mL TRAZODONE 799 50 ng/mL Specimen Validity (Not yet r eviewed by provider) Interpretation: Performing Lab: Notes/Report: Creatinine 64.48 > 20 mg/dL mg/dL Oxidants NOT DETECTED < 200 ug/mL ug/mL pH 6.22 4.50-9.50 Specific [place] 1.009 1.003-1.050 PDF (Not yet reviewed by pro vider) Interpretation: Performing Lab: Notes/Report: Reason For Referral No Information Medications Medication SIG (Take, Route, Frequency, Duration) Notes Start Date End Date Status Jardiance 10 MG Oral for 30 Days Active Invega Trinza 819 MG/2.63ML Intramuscular for 84 Days Ac tive traZODone HCl 100 MG Oral for 30 Days Active oxyCODONE-Acetaminophen 7.5-325 MG 1 tablet Orally twice per day PRN for 30 days 11/11/2024 Active Social History Tobacco Use: Social History Observation Description Date Details (start date - stop date) Former Smoker NA - NA Alcohol Screening Question Answer Notes Alcoholic drink in the past year No Points 0 Interpretation Negative Screening Question Answer Notes Are you a current smoker? former smoker How long has it been since you last smoked? > 10 years Problems Problem Type SNOMED Code ICD Code Onset Dates Problem Status W/U Status Risk Notes Problem Cervical radiculopathy (19186330) Cervical radiculopathy (M54.12) Active confirmed Problem Piriformis syndrome (221661976) Piriformis syndrome (G57.00) Active confirmed Problem Lumbar Spondylosis without Myelopathy (M47.816) Active confirmed Encounters Encounter Location Date Provider Diagnosis [facility] [address] 11/09/2024 Paty Canela Lumbar Spondylosis without Myelopathy M47.816 [facility] [address] 11/11/2024 Bowen Sarabia Lumbar Spondylosis without Myelopathy M47.816 and Other intervertebral disc degeneration, 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 [facility]- [address] [address] 06/08/2024 Bowen Sarabia Vertebrogenic low ba ck pain M54.51 ; Piriformis syndrome G57.00 and Lumbar Spondylosis without Myelopathy M47.816 [facility]- [address] [address] 06/15/2024 Bowen Sarabia Myalgia, other site M79.18 [facility]- [address] [address] 06/17/2024 Smith Ahmed Lumbar Spondylosis without Myelopathy M47.816 and Myalgia, other site M79.18 [facility] [address] 07/06/2024 Paty Canela Lumbar Spondylosis without Myelopathy M47.816 [facility] [address] 07/27/2024 Bowen Sarabia Piriformis syndrome G57.00 and Lumbar Spondylosis without Myelopathy M47.816 [facility] [address] 08/17/2024 Bowen Sarabia Cervical radiculopat hy M54.12 ; Piriformis syndrome G57.00 ; Acute pain of right shoulder M25.511 and Acute pain of left shoulder M25.512 [facility] [address] 08/31/2024 Bowen Sarabia Piriformis syndrome G57.00 and Myalgia, other site M79.18 [facility] [address] 09/14/2024 Bowen Sarabia Cervical radiculopat hy M54.12 ; Piriformis syndrome G57.00 ; Acute pain of right shoulder M25.511 and Acute pain of left shoulder M25.512 [facility] [address] 10/12/2024 Bowen Sarabia Lumbar Spondylosis without Myelopathy M47.816 ; Other specified mononeuropathies of bilateral upper limbs G56.83 and Meralgia paresthetica, bilateral lower limbs G57.13 [facility] [address] [place] [address] [address] [place], [place] [id number] 06/10/2024 [facility] [address] [place] [address] 06/10/2024 [facility] [address] [place] [address] 06/17/2024 [facility] [address] [place] [address] 07/30/2024 Paty [facility] [address] [place] [address] 08/17/2024 [facility] [address] [place] [address] 09/15/2024 Paty [facility] [address] [place] [address] 09/28/2024 Paty Canela [facility] [address] [place] [address] 11/11/2024 Paty Canela Assessments Encounter Date Diagnosis (ICD Code) Assessment Notes Treatment Notes Treatment Clinical Notes Section Notes 11/09/2024 Lumbar Spondylosis without Myelopathy (ICD-10 - M47.816) 11/11/2024 Lumbar Spondylosis without Myelopathy (ICD-10 - M47.816) Assessment is unchanged from 10/12/24 except as denoted below. 11/11/2024 Other intervertebral disc degeneration, lumbar region with discogenic back pain only (ICD-10 - M51.360) Assessment is unchanged from 10/12/24 except as denoted below. 06/08/2024 Vertebrogenic low back pain (ICD-10 - M54.51) IMPRESSION: 1. Low back pain with radiation to the left posterolateral leg. 2. A history of a C3 through C6 fusion. 3. Diabetic peripheral neuropathy. 4. Left piriformis syndrome. 06/08/2024 Piriformis syndrome (ICD-10 - G57.00) IMPRESSION: 1. Low back pain with radiation to the left posterolateral leg. 2. A history of a C3 through C6 fusion. 3. Diabetic peripheral neuropathy. 4. Left piriformis syndrome. 06/15/2024 Myalgia, other site (ICD-10 - M79.18) 06/17/2024 Lumbar Spondylosis without Myelopathy (ICD-10 - M47.816) Assessment is unchanged from 06/08/2024 except as denoted below. 06/17/2024 Myalgia, other site (ICD-10 - M79.18) Assessment is unchanged from 06/08/2024 except as denoted below. 07/06/2024 Lumbar Spondylosis without Myelopathy (ICD-10 - M47.816) 07/27/2024 Piriformis syndrome (ICD-10 - G57.00) Assessment is unchanged from 06/17/24 except as denoted below. 07/27/2024 Lumbar Spondylosis without Myelopathy (ICD-10 - M47.816) Assessment is unchanged from 06/17/24 except as denoted below. 08/17/2024 Cervical radiculopathy (ICD-10 - M54.12) Assessment is unchanged from 07/27/24 except as denoted below. 08/17/2024 Piriformis syndrome (ICD-10 - G57.00) Assessment is unchanged from 07/27/24 except as denoted below. 08/31/2024 Piriformis syndrome (ICD-10 - G57.00) 08/31/2024 Myalgia, other site (ICD-10 - M79.18) 09/14/2024 Cervical radiculopathy (ICD-10 - M54.12) Assessment is unchanged from 08/17/24 except as denoted below. 09/14/2024 Piriformis syndrome (ICD-10 - G57.00) Assessment is unchanged from 08/17/24 except as denoted below. 10/12/2024 Lumbar Spondylosis without Myelopathy (ICD-10 - M47.816) Assessment is unchanged from 09/14/24 except as denoted below. 10/12/2024 Other specified mononeuropathies of bilateral upper limbs (ICD-10 - G56.83) Assessment is unchanged from 09/14/24 except as denoted below. 06/08/2024 Lumbar Spondylosis without Myelopathy (ICD-10 - M47.816) IMPRESSION: 1. Low back pain with radiation to the left posterolateral leg. 2. A history of a C3 through C6 fusion. 3. Diabetic peripheral neuropathy. 4. Left piriformis syndrome. 08/17/2024 Acute pain of right shoulder (ICD-10 - M25.511) Assessment is unchanged from 07/27/24 except as denoted below. 09/14/2024 Acute pain of right shoulder (ICD-10 - M25.511) Assessment is unchanged from 08/17/24 except as denoted below. 10/12/2024 Meralgia paresthetica, bilateral lower limbs (ICD-10 - G57.13) Assessment is unchanged from 09/14/24 except as denoted below. 08/17/2024 Acute pain of left shoulder (ICD-10 - M25.512) Assessment is unchanged from 07/27/24 except as denoted below. 09/14/2024 Acute pain of left shoulder (ICD-10 - M25.512) Assessment is unchanged from 08/17/24 except as denoted below. 11/11/2024 Other Notes: Significant time was spent due to complex decision-making as a result of the patient's complicated pain issues. The plan is as follows: Patient will continue exercise therapy regimen. Reviewed most recent drug screen report which shows no concerning abnormalities Will refill pt's oxycodone-aceta minophen as it improves pain and function without [...] is given for the RFA, and a tractor sweeper driver will be needed on procedure day. [...] unchanged from 10/12/24 except as denoted below. 06/08/2024 Other PLAN: 1. We will schedule the patient for a left L3-4 and L4-5 diagnostic facet joint injection to target his axial low back pain stemming from lumbar spondylosis. We will plan for a lumbar medial branch nerve radiofrequency ablation in the future. We discussed procedure details, risks, benefits, alternatives and expected outcomes of the above procedure with the patient. The patient expressed understanding. All patient questions were answered to the patient's satisfaction.2. We explained to the patient that his radicular pain down his left leg is likely not due to a lumbar spine cause as his MRI does not show any significant stenosis at the levels that would correlate with his pain. The patient states that he is able to stand up and walk off the leg pain after a bit and we explained to the patient that his symptoms are consistent with piriformis syndrome. 3. We will schedule the patient for left gluteal muscle and piriformis muscle trigger point injections to target his pain and symptoms stemming from piriformis syndrome. We discussed procedure details, risks, benefits, alternatives and expected outcomes of the above procedure with the patient. The patient expressed understanding. All patient questions were answered to the patient's satisfaction.4. We explained to the patient that [facility] is an interventional pain management practice and our ultimate goal is to improve pain and function through interventional means and not with opioid pain medications solely. We explained to the patient that we will not solely treat pain with opioid pain medications and our ultimate goal is to get patients weaned off opioid medications entirely. The patient expressed understanding and he is agreeable to this plan. 5. We will refill the patient's oxycodone-aceta minophen 7.5/325 mg 1 tablet PO TID on an as needed basis for the patient's acute breakthrough pain. We will obtain a drug screen at today's visit. The patient is tolerating this medication well without any significant side effects. 6. We will address the patient's neck pain in the future. 7. We will consider the Intracept procedure in the future for the patient's axial low back pain. 8. We will not add or change any other medications at this time as the patient is currently tolerating all medications with no significant side effects. 9. We advised the patient to contact the clinic if they develop any new pain or worsening symptoms. IMPRESSION: 1. Low back pain with radiation to the left posterolateral leg. 2. A history of a C3 through C6 fusion. 3. Diabetic peripheral neuropathy. 4. Left piriformis syndrome. 06/17/2024 Other Notes: Significant time was spent due to complex decision-making as a result of the patient's complicated pain issues. The plan is as follows: Patient will continue exercise therapy regimen. Patient reports bothersome loose stool with oxycodone-aceta minophen that was first prescribed by another provider x few months ago. We will switch to hydrocodone-cheyanne taminophen to check for effect on pain symptoms while hopefully resulting in improved side effect profile. Patient's most recent drug screen was reviewed, and no critical abnormalities were noted. New sample obtained today. Follow-up as scheduled for upcoming injection. Patient advised to contact the clinic if they develop any new or worsening pain symptoms. The total encounter time for today's visit was 25 minutes which was spent on preparation for the visit, e.g. chart review, and in the activities documented in this note. Please refer back to the HPI and physical exam sections of this note for further details regarding this encounter. Assessment is unchanged from 06/08/2024 except as denoted below. 07/27/2024 Other Notes: Significant time was spent due to complex decision-making as a result of the patient's complicated pain issues. The plan is as follows: Patient will continue exercise therapy regimen. Reviewed most recent drug screen report which shows no concerning abnormalities Pt states his most recent hydrocodone rx does not give him any relief. Pt is requesting he have oxycodone-aceta minophen refilled again. Informed pt that at his last FU, he stated that the oxy-cheyanne was causing GI symptoms. Pt states that his symptoms were due to his IBS. Reminded the patient that [facility] [place], and our ultimate goal is to provide sustained pain relief and improved function through procedures and not with opioid medications. Explained to patient that we do not prescribe opioid medications indefinitely, and our goal is to wean patients off of opioid pain medications entirely. The patient expresses understanding and is agreeable to this plan. Will refill pt's oxycodone-aceta minophen as it improves pain and function without significant side effects but will decrease the frequency to BID from TID. Will obtain drug screen today. Will plan to decrease the pt's medication at future visits. We will schedule a right PF/gluteal Trigger point injection to target taut and tender muscles causing pain and radicular symptoms in the RLE. Discussed procedure details, risks, benefits, alternatives and expected outcomes of the above procedures with the patient. The patient expressed understanding. All patient questions were answered to the patient's satisfaction. We will not add or change any other medications at this time as the patient is currently tolerating all medications with no significant side effects. Advised patient to contact the clinic if they develop any new symptoms or worsening pain The total encounter time for today's visit was 30 minutes which was spent on preparation for the visit, e.g. chart review, and in the activities documented in this note. Please refer back to the HPI and physical exam sections of this note for further details regarding this encounter. Assessment is unchanged from 06/17/24 except as denoted below. 08/17/2024 Other Notes: Significant time was spent due to complex decision-making as a result of the patient's complicated pain issues. The plan is as follows: Patient will continue exercise therapy regimen. Reviewed most recent drug screen report which shows no concerning abnormalities Will refill pt's oxycodone-aceta minophen as it improves pain and function without significant side effects. Will obtain drug screen today. Pt had to cancel his prior right PF/gluteal TPI due to an emergency. 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 Will order an updated cervical spine MRI with contrast to assess the cause of the pt's pain and radicular symptoms and also to assess his hardware integrity. Will review at FU. We will refer the patient for physical therapy to help strengthen muscles, improve mobility and/or stability, and correct biomechanical dysfunction. Discussed procedure details, risks, benefits, alternatives and expected outcomes of the above procedures with the patient. The patient expressed understanding. All patient questions were answered to the patient's satisfaction. We will not add or change any medications at this time as the patient is currently tolerating all medications with no significant side effects. Advised patient to contact the clinic if they develop any new symptoms or worsening pain The total encounter time for today's visit was 30 minutes which was spent on preparation for the visit, e.g. chart review, and in the activities documented in this note. Please refer back to the HPI and physical exam sections of this note for further details regarding this encounter. Assessment is unchanged from 07/27/24 except as denoted below. 09/14/2024 Other Notes: Significant time was spent due to complex decision-making as a result of the patient's complicated pain issues. The plan is as follows: Patient will continue exercise therapy regimen. Reviewed most recent drug screen report which shows no concerning abnormalities Will refill pt's oxycodone-aceta minophen as it improves pain and function without significant side effects. Will obtain drug screen today. Pt's C-MRI is scheduled on 09/16. Will review the report at FU. Reminded the pt that our goal is to wean down his oxy-cheyanne and to eventually d/c it. We will plan for this after the MRI review and developing a subsequent treatment plan. Pt expresses understanding and is agreeable to this. Follow-up in 4 weeks for medication management [...] regarding this encounter. Assessment is unchanged from 08/17/24 except as denoted below. 10/12/2024 Other Notes: Significant time was spent due to complex decision-making as a result of the patient's complicated pain issues. The plan is as follows: Patient will continue exercise therapy regimen. Reviewed the patient's cervical spine MRI report with them. Answered all patient questions to their satisfaction. Will schedule the patient for a right L4/5 and L5/S1 diagnostic facet joint injection to target their axial LBP stemming from lumbar spondylosis. We will plan for a lumbar MB nerve RFA in the future. Discussed procedure details, risks, benefits, alternatives and expected outcomes with the patient. The patient expresses understanding and all patient questions were answered to their satisfaction. Will order a BUE and BLE EMG/NCS to further assess the cause of the pt's upper and lower extremity paresthesias. Will review at FU. Reviewed most recent drug screen report which shows no concerning abnormalities Will refill pt's oxycodone-aceta minophen as it improves pain and function without significant side effects. Will obtain drug screen today. Reviewed most recent drug screen report which shows no concerning abnormalities Follow-up in 4 weeks for medication management [...] regarding this encounter. Assessment is unchanged from 09/14/24 except as denoted below. Plan Of Treatment Pending Test Test Name Order Date MRI Cervical Spine with and without Cont rast 08/17/2024 Results 11/11/2024 Results 08/17/2024 Results 10/12/2024 Results 09/14/2024 Specimen Validity 09/14/2024 Specimen Validity 11/11/2024 Specimen Validity 08/17/2024 Specimen Validity 10/12/2024 PDF 09/14/2024 PDF 11/11/2024 PDF 08/17/2024 PDF 10/12/2024 Next Appt Details Provider Name:Bowen Sarabia, 0 11/30/2024 08:00:00 AM, [address] [place], [address], Provider Name:Paty Weber pher, 12/07/2024 10:00:00 AM, [address] [place], [address], Provider Name:Paty Weber pher, 12/28/2024 10:00:00 AM, [address], [place], [address], Insurance Providers Payer Name Payer Address Payer Phone Subscriber Number Group Number Insured Name Patient Relationship to Insured Coverage Start Date Coverage End Date Thelma [address] [place] [phone] [id number] Ilia Ricketts Self - patient is the insured Medical (General) History Medical History History ICD Code Diabetes Sleep Apnea Headaches Depression Schizophrenia Bipolar Disorder Surgical History Surgery Date(Month/Year) Cervical Cage placement 2011 C3-C6 Fusion 1999 Hospitalization History Reason Date(Month/Year) See surgical history
--- OUTSIDE RECORDS SUMMARY | 2024-11-17 02:39 | XMS_ITS | Clinical Summary ---
Author Organization [facility] [place] [address] Address [address] [place] [address] [address] [place] [address] Care Team Providers Care Coating Machine Operator Name Role Phone Ginette Childs CNM Unavailable + [phone] Tay Finley MD Unavailable [phone] Sadi Cisneros MD Primary Care Provider Allergies No known active allergies Medications traZODone (DESYREL) 100 mg tablet Take 2 tablets (200 mg total) by mouth nightly Active empagliflozin (JARDIANCE) 25 mg tabletIndicati ons:Type 2 diabetes mellitus with hyperglycemia, without long-term current use of insulin (HCC) Take 1 tablet (25 mg total) by mouth daily 90 tablet 1 5 Active metFORMIN XR (GLUCOPHAGE XR) 500 mg 24 hr tabletIndicati ons:Type 2 diabetes mellitus with hyperglycemia, without long-term current use of insulin (HCC) Take 2 tablets (1,000 mg total) by mouth 2 (two) times a day with meals 360 tablet 3 5 Active rosuvastatin (CRESTOR) 20 mg tabletIndicati ons:Mixed dyslipidemia,T ype 2 diabetes mellitus with hyperglycemia, without long-term current use of insulin (HCC) Take 1 tablet (20 mg total) by mouth daily 90 tablet 3 5 Active Invega Trinza 819 mg/2.63 mL syringe Inject 2.63 mL (819 mg total) into the muscle as instructed 5 Active desvenlafaxine ER (PRISTIQ) 100 mg 24 hr tablet Take 1 tablet (100 mg total) by mouth daily Active Invega Sustenna 156 mg/mL syringe Inject 1 mL (156 mg total) into the muscle as instructed every 4 (four) weeks 11/16/19 25 Discontinu ed(Therapy completed) Active Problems Problem Noted Date Diagnosed Date Chronic insomnia 11/15/2024 Vitamin D deficiency 11/15/2024 CKD stage 3a, GFR 45-59 ml/min 07/13/2024 Assessment & Plan (07/13/2024 8:06 AM CDT): - chronic condition - avoid NSAIDs, Bactrim, Contrast, PPI - continue with low phos diet and low K diet - renally dose medications Lab Results Component Value Date CREATININE 1.52 (H) 07/12/2024 CREATININE 1.32 (H) 12/11/2023 CREATININE 1.52 (H) 04/24/2023 JOSÉ MIGUEL (generalized anxiety disorder) 07/12/2024 Assessment & Plan (11/15/2024 8:50 AM CDT): - chronic conditions, better controlled - Paranoid Schizophrenia, anxiety, depression - Being treated with Invega. Hx of auditory and visual hallucinations, which worsen when due for medication. Consistent with medication adherence. - Continue Invega and Trazodone - recently got started on Chapin venlafaxine which has helped with anxiety and depression - continue with Trazodone 200 mg nightly - continue current management per psychiatry Orders: Thyroid Function Price; Future Assessment & Plan (07/12/2024 9:54 AM CDT): [...] (major depressive disorder) 07/12/2024 Assessment & Plan (11/15/2024 8:50 AM CDT): - chronic conditions, better controlled - Paranoid Schizophrenia, anxiety, depression - Being treated with Invega. Hx of auditory and visual hallucinations, which worsen when due for medication. Consistent with medication adherence. - Continue Invega and Trazodone - recently got started on Chapin venlafaxine which has helped with anxiety and depression - continue with Trazodone 200 mg nightly - continue current management per psychiatry Orders: Thyroid Function Price; Future Assessment & Plan (07/12/2024 9:55 AM CDT): [...] spine, cervical radiculopathy - last done in 2020 Preventative health care 07/12/2024 Assessment & Plan [...] for colonoscopy Hx of colonic polyps 07/12/2024 Overview (11/15/2024): - Referral was placed to Gastroenterology at [facility] June of 2024 , colonoscopy scheduled for 11/17/2024 Assessment & Plan (11/15/2024 8:50 AM CDT): - has family hx of colon cancer in brother - reports hx of colon polyp in past - Referral was placed to Gastroenterology at [facility] June of 2024 , colonoscopy scheduled for 11/17/2024 Assessment & Plan (07/12/2024 9:55 AM CDT): - reports family hx of colon cancer in brother - reports hx of colon polyp in past - referral placed to GI for colonoscopy Personal history of tobacco use 07/12/2024 Overview (11/15/2024): Quit 2016 Assessment & Plan (11/15/2024 8:50 AM CDT): Social History Tobacco Use Smoking Status Former Current packs/day: 0.00 Average packs/day: 1.5 packs/day for 20.0 years (30.0 ttl pk-yrs) Types: Cigarettes Start date: 03/1996 Quit date: 03/2016 Years since quittin.6 Smokeless Tobacco Never - continue with abstinence from tobacco smoking - Lung cancer screening, up to date, due for repeat, order placed LDCT 09/22 - scanned filed from [facility] 5 mm right lower lobe pulmonary nodule present. 5 mm right middle lobe nodule present. Pleural based nodule posteriorly at the right lower lobe measures 1 cm. Calcified right basilar granulomas are present. There is a 3 mm left lower lobe nodule. There is a 3 mm pleural-based nodules in the left lower lobe. Images through the upper abdomen revealed calcified gallstones. Lung-RADS 4A: Suspicious, three-month follow-up CT recommended. Orders: CT Lung Cancer Screening; Future Assessment & Plan (07/12/2024 9:52 AM CDT): [...] - Consider ENT referral if symptoms persist Type 2 diabetes mellitus wit h stage [...] use of insulin 04/22/2023 Assessment & Plan (11/15/2024 8:50 AM CDT): Chronic condition, better controlled and at goal now Goal A1c <7 Diagnosed 2-3 years ago. Currently on metformin 1000 mg BID and Jardiance 25 mg daily. - see results of most recent A1c - he is on Rosuvastatin 20 mg daily The current medical regimen is effective; continue present plan and medications. Lab Results Component Value Date HGBA1C 6.6 (A) 11/15/2024 HGBA1C 7.9 07/12/2024 HGBA1C 9.0 12/11/2023 Lab Results Component Value Date LDLCALC 47 07/12/2024 CREATININE 1.52 (H) 07/12/2024 Orders: POCT hemoglobin A1c Vitamin D 25 hydroxy; Future Lipid panel; Future Hemoglobin A1c; Future Comprehensive metabolic panel; Future CBC without differential; Future Vitamin B12; Future Assessment & Plan (07/13/2024 8:02 AM CDT): [...] for coupon card that they can get [id number]. Reviewed side effects of medication. Really work on diabetic diet and exercise. Encouraged weight loss. We will plan to see him back in 3 months for monitoring. Assessment & Plan (04/22/2023 5:50 PM PARKING LOT SPOTTER): Chronic. Uncontrolled but has been off his [...] (07/12/2024): Follows with psychiatry Assessment & Plan (11/15/2024 8:50 AM CDT): - chronic conditions, better controlled - Paranoid Schizophrenia, anxiety, depression - Being treated with Invega. Hx of auditory and visual hallucinations, which worsen when due for medication. Consistent with medication adherence. - Continue Invega and Trazodone - recently got started on Chapin venlafaxine which has helped with anxiety and depression - continue with Trazodone 200 mg nightly - continue current management per psychiatry Assessment & Plan (07/12/2024 9:54 AM [...] adjustment Assessment & Plan (04/22/2023 5:52 PM PARKING LOT SPOTTER): Chronic. Follows with Psychiatry. Reports currently stable on regimen. Continue medication care per psychiatrist NAFLD (nonalcoholic fatty liver disease) 024 Assessment & Plan (12/11/2023 5:10 PM CDT): LFTs were okay on last labs. Encouraged healthy diet, exercise, weight loss. We will monitor. Repeat LFTs and CMP ordered to establish baseline. Assessment & Plan (04/22/2023 5:54 PM PARKING LOT SPOTTER): Patient with history of fatty liver disease. Prior records show possible signs of elevated LFTs in 2020 consistent with likely FORD. Counseled on healthy diet, exercise. We will monitor his lab Mixed dyslipidemia 03/06/2021 Assessment & Plan (11/15/2024 8:50 AM CDT): - chronic condition - status: is adequately controlled. - current management/medications: Rosuvastatin 20 mg daily - other comorbid conditions:T2DM - patient is compliant with medications. - most recent LDL as shown below - maintain a healthy weight, diet The current medical regimen is effective; continue [...] 07/12/2024 ALKPHOS 63 07/12/2024 BILITOT 0.4 07/12/2024 Orders: Lipid panel; Future Assessment & Plan (07/13/2024 8:03 AM CDT): [...] response Assessment & Plan (04/22/2023 5:50 PM PARKING LOT SPOTTER): Chronic. Has been on lovastatin possibly at a 20 mg dose. Remotely looks like may have been on rosuvastatin several years ago. Check cholesterol level and start appropriate intensity statin based on results QUYEN on CPAP 10/26/2020 Overview (04/22/2023): (10/26/20 at [facility]): AHI = 22.6 / supine AHI = 61.5 / O2 fabricio = 87%; lack of sleep onset with CPAP. Assessment & Plan (11/15/2024 8:50 AM CDT): Chronic condition, suboptimally controlled No longer using CPAP machine regularly. Reports difficulty using CPAP due to nasal obstruction. CPAP humidifier functioning to aid in symptom management. - order new sleep study for him and we can get new CPAP device if criteria met (10/26/20 at [facility]): AHI = 22.6 / supine AHI = [...] me the serial number (10/26/20 at [facility]): AHI = 22.6 / supine AHI = 61.5 / O2 fabricio = 87%; lack of sleep onset with CPAP. Assessment & Plan (04/22/2023 5:52 PM PARKING LOT SPOTTER): Chronic. He reports compliance with CPAP. Continue Resolved Problems Problem Noted Date Diagnosed Date Resolved Date Class 1 obesity due to exces s calories with serious comorbidity and body mass index (BMI) of 30.0 to 30.9 in adult 12/11/2023 07/12/2024 Assessment & Plan (12/11/2023 5:12 PM CDT): Chronic. BMI worse since last visit. Encouraged healthy diet, exercise, weight loss. Monitor Subclinical hypothyroidism 04/25/2023 0 11/15/2024 Overview (07/13/2024): Resolved 07/23 Assessment & Plan (07/12/2024 8:44 AM CDT): - noted in the past - recheck labs, order placed Lab Results Component Value Date TSH 8.84 (H) 04/24/2023 NARAYANAN (dyspnea on exertion) 04/22/2023 Assessment & Plan (04/22/2023 5:51 PM PARKING LOT SPOTTER): Chronic intermittent issue off and on for [...] Nicotine use disorder 04/22/20232024 Overview (07/12/2024): Quit 2016 Assessment & Plan (07/12/2024 8:42 AM CDT): Social History Tobacco Use Smoking Status Former Current packs/day: 0.00 Average packs/day: 1.5 packs/day for 20.0 years (30.0 ttl pk-yrs) Types: Cigarettes Start date: 03/1996 Quit date: 03/2016 Years since quittin.2 Smokeless Tobacco Never - continue with abstinence Assessment & Plan (12/11/2023 5:11 PM CDT): Encouraged to quit. Monitor Assessment & Plan (04/22/2023 5:53 PM PARKING LOT SPOTTER): Chronic. Patient with history of heavy tobacco [...] loss Assessment & Plan (04/22/2023 5:49 PM PARKING LOT SPOTTER): Chronic. Blood pressure was controlled in office [...] Encounters Date Type Department Care Team Description 11/15/2024 8:15 AM CDT Office Visit [facility] Primary Care at [address] [phone] Sadi Cisneros MD Type 2 diabetes mellitus with hyperglycemia, without long-term current use of insulin (HCC) (Primary Dx); QUYEN on CPAP; Mixed dyslipidemia; Personal history of tobacco use; Multiple lung nodules on CT; Hx of colonic polyps; Paranoid schizophrenia (HCC); Moderate episode of recurrent major depressive disorder (HCC); JOSÉ MIGUEL (generalized anxiety disorder) 11/15/2024 Orders Only [facility] Primary Care at [address] [phone] Sadi Cisneros MD QUYEN on CPAP (Primary Dx) 09/21/2024 Results Follow-Up [facility] Primary Care at [address] [phone] Lung Cancer Screening 09/21/2024 Orders Only [facility] Primary Care at [address] [phone] Sadi Cisneros MD Personal history of tobacco use from Last 3 Months Immunizations Immunization Administration Dates Next Due H1N1 Inj Preservative Free 02/25/2022 Influenza, Quadrivalent, Spl it, Preservative Free, Intramuscular 02/25/2022 Influenza, Unspecified 11/15/2024(Deferr ed: Patient Refused),07/12/2024(Deferred: Patient Refused),03/31/2024(Deferred: Patient Refused),03/31/2023(Deferred: Patient Refused) Pneumococcal Conjugate Pcv20 11/15/2024 Tdap 11/15/2024 Surgical History Surgery Date Site/Laterality Comments SPINE SURGERY 3 cervical sx, last in 2019 CARDIAC CATHETERIZATION 03/09/2021 Medical History Medical History Date Comments Anxiety Arthritis Depression Diabetes mellitus (HCC) Hypertension Vitamin D deficiency Fatty liver Paranoid schizophrenia (HCC) QUYEN (obstructive sleep apnea) Family History Medical History Relation Name Comments Allergy (severe) Brother Wilfrido Fett Asthma Brother Wilfrido Lechugat Colon polyps Brother Wilfrido Lechugat COPD Father Karthikeyan Ricketts Diabetes Father Karthikeyan Ricketts Heart attack Father Karthikeyan Ricketts Heart disease Father Karthikeyan Ricketts Hyperlipidemia Father Karthikeyan Ricketts Hypertension Father Karthikeyan Ricketts Kidney disease Father Karthikeyan Ricketts Arthritis Mother Karlene Ricketts Heart attack Mother Karlene Lechugat Heart disease Mother Karlene Lechugat Hyperlipidemia Mother Karlene Ricketts Hypertension Mother Karlene Ricketts Mental illness Mother Karlene Ricketts Relation Name Status Comments Brother Wilfrido Fett Father Karthikeyan Ricketts Mother Karlene Ricketts Social History Tobacco Use [...] Sign Reading Time Taken Comments Blood Pressure 126/72 11/15/2024 8:15 AM CDT Pulse 76 11/15/2024 8:15 AM CDT Temperature 36.6 C (97.8 F) 11/15/2024 8:15 AM CDT Respiratory Rate 16 12/11/2023 1:39 PM CDT Oxygen Saturation 98% 11/15/2024 8:15 AM CDT Inhaled Oxygen Concentration - - Weight 100.4 kg (221 lb 6.4 oz) 11/15/2024 8:15 AM CDT Height 188 cm (6' 2) 11/15/2024 8:15 AM CDT Body Mass Index 28.43 11/15/2024 8:15 AM CDT Plan of Treatment Health Maintenance Due Date Last Done Comments Colon Cancer Screening-Colonoscopy 1966 Zoster Vaccine (1 of 2) 2016 Foot Exam 04/22/2024 04/22/2023 Influenza Vaccine (#1) 2024 02/25/2022 Hemoglobin A1C 05/18/2025 11/15/2024, 06/29, 12/11/2023, Additional history exists Albumin Creatinine Ratio, Urine 07/12/2025 , 04/24/2023 Lipid Panel 07/12/2025 07/12/2024, 11/29, 04/24/2023 Regular Well Visit/Exam 18-64 07/12/2025 07/12/2024 eGFR 07/12/2025 07/12/2024, 11/29, 04/24/2023 Lung Cancer Screening 09/16/2025 09/16/2024 Dilated Eye Exam 09/23/2025 09/24/2023 Depression Screening 11/15/2025 11/15/2024, 07/12/2024, 12/11/2023, Additional history exists Prostate Cancer Screening-PSA 07/12/2026 07/12/2024, 04/24/2023 DTaP/Tdap/Td Vaccine (2 - Td or Tdap) 11/15/2034 11/15/2024 Hepatitis C Screening Completed 04/24/2023 Hepatitis B Screening Completed 07/12/2024 Pneumococcal vaccine <65 Completed 11/15/2024 Procedures Procedure Name Priority Date/Time Associated Diagnosis Comments POCT HEMOGLOBIN A1C Routine 11/15/2024 8:24 AM CDT Type 2 diabetes mellitus with hyperglycemia, without long-term current use of insulin (HCC) MRI CERVICAL SPINE W WO CONTRAST Schedule Routine, Read Routine (OP Routine) 09/16/2024 CT LUNG CANCER SCREENING Schedule Routine, Read Routine (OP Routine) 09/16/2024 Personal history of tobacco use EGFR Routine 07/12/2024 9:14 AM CDT Type 2 diabetes mellitus with hyperglycemia, without long-term current use of insulin (HCC) LIPID PANEL Routine 07/12/2024 9:14 AM CDT Mixed dyslipidemia Type 2 diabetes mellitus with hyperglycemia, without long-term current use of insulin (HCC) ALBUMIN CREATININE RATIO, URINE Routine 07/12/2024 9:14 AM CDT Type 2 diabetes mellitus with hyperglycemia, without long-term current use of insulin (HCC) PSA SCREEN Routine 07/12/2024 9:14 AM CDT Prostate cancer screening HM DIABETES EYE EXAM Routine 09/24/2023 8:51 AM CDT HEPATITIS C ANTIBODY Routine 04/24/2023 11:47 AM [employer] SPOTTER Encounter for hepatitis C screening test for low risk patient from Last 3 Months or Most Recently Relevant to Health Maintenance Results * (ABNORMAL) POCT hemoglobin A1c (11/15/2024 8:24 AM CDT) Hemoglobin A1C, POC 6.6(A) 4.0 - 5.6 % Blood 11/15/2024 8:24 AM CDT Sadi Cisneros MD POINT OF CARE TEST ORDMannie RIVERA Final Result * MRI Cervical Spine W WO Contrast (09/16/2024) Anatomical Region Laterality Modality Spine N/A Magnetic Resonan ce [facility] Provider IMG MRI PROCEDURES Final Result * CT Lung Cancer Screening (09/16/2024) Anatomical Region Laterality Modality Chest N/A Computed Tomogra phy Sadi Cisneros MD IMG CT PROCEDURES Final Result * (ABNORMAL) eGFR (07/12/2024 9:14 AM CDT) [...] 9:14 AM CDT 07/12/2024 7:47 PM CDT Sadi Cisneros MD LAB BLOOD ORDERABLES Fi nal Result [facility] [id number] Department [place] [address] * PSA screen (07/12/2024 9:14 AM CDT) [...] ORDERABLES Fi nal Result Performing Organization Address [facility] Co de Phone Number CATHERINE [phone] [place] [address] * Albumin Creatinine Ratio, Urine (07/12/2024 9:14 AM CDT) Albumin Ur 26.1 mg/L Comment: Interpretive Data No reference range established. Current interpretive data was last revised 2018. Creatinine Ur 131.2 mg/dL [facility] Comment: Interpretive Data No reference range established. Current interpretive data was last revised 2018. Albumin Creatinine Ratio, Ur 20 1 - 29 mg/g CATHERINE Urine 07/12/2024 9:14 AM CDT 07/12/2024 3:35 PM CDT Sadi Cisneros MD LAB URINE ORDERABLES Fi nal Result Performing Organization Address [facility] Co de Phone Number CATHERINE [phone] [address] [facility] [place] [address] * Lipid panel (07/12/2024 9:14 AM CDT) [...] mg/dL High: >160 mg/dL Calculated using the Ronquillo LDL-C estimating equation. This equation was implemented [...] LAB BLOOD ORDERABLES Fi nal Result CATHERINE [id number] Department [place] [address] * DIABETES EYE EXAM (09/24/2023 8:51 AM CDT) [facility] SCRIBED DIABETIC DILATED EYE EXAM Normal us Pat Etienne MD HEALTH MAINTENANCE [facility] al Result * Hepatitis C antibody Blood (04/24/2023 11:47 AM [employer]OTTER) Hep C Ab Nonreactive Nonreactive CATHERINE VIDES [...] on 2019. Blood 04/24/2023 11:4 7 AM P[employer]OTTER 04/24/2023 8:19 PM [employer] SPOTTER Pat Etienne MD LAB MICROBIOLOGY - GEN ERAL ORDERABLES Final Result CATHERINE [address] Department [place] [address] from Last 3 Months or Most Recently Relevant to Health Maintenance Insurance [employer] Address: [facility] [id number] [place] [address] [employer] [employer] [employer] Address: [facility] [id number] [place] [address] Care Teams Coating Machine Operator Relationship Specialty Start Date End Date Sadi Cisneros MD [address] [facility] [address] [place] [address] PCP - General Family Medicine 09/08/24 Ginette Childs CNM [address] [place] [address] Nurse Practitioner Psychiatry 04/22/23 Tay Finley MD [address] [place] [address] Referring Physician Psychiatry 07/12/24
--- OUTSIDE RECORDS SUMMARY | 2024-11-17 02:39 | XMS_ITS | Patient Health Record ---
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 Name Role Phone Deepak Plunkett MD Primary Care Provider Unavail able Sarah Bustos Unavailable [phone] Tay Finley Unavailable [phone] Ginette Childs Unavailable [phone] Allergies No Known Allergies Reason For Referral No Information Medications Medication SIG (Take, Route, Frequency, Duration) Notes Start Date End Date Status Desvenlafaxine Succinate ER 50 MG Tablet Extended Release 24 Hour 1 tablet Orally Once a day; Duration: 30 days decreasing 11/15/2024 Active cloNIDine HCl ER 0.1 MG Tablet Extended Release 12 Hour 1 tablet in the morning, 2 tablets in the evening Orally see sign; Duration: 30 days 11/15/2024 Active Rosuvastatin Calcium 20 MG Tablet Oral; Duration: 90 Days Active Jardiance 25 MG Tablet 1 tablet Oral; Duration: 30 days Active Vitamin D (Ergocalciferol) 1.25 MG (97409 UT) Capsule TAKE 1 CAPSULE BY MOUTH ONCE WEEKLY ON MONDAYS; Duration: 84 Active traZODone HCl 100 MG Tablet 1-2 tabs at bedtime Oral daily Active metFORMIN HCl ER 500 MG Tablet Extended Release 24 Hour TAKE 1 TABLET BY MOUTH TWICE DAILY BEFORE BREAKFAST AND DINNER. Oral; Duration: 90 Days Active Invega Trinza 819 MG/2.63ML Suspension Prefilled Syringe as directed Intramuscular; Duration: 84 days dispense to office last shot given 10/15/24 12/24/2024 Active Albuterol Sulfate HFA 108 (90 Base) MCG/ACT Aerosol Solution Inhalation; Duration: 75 Days Active Immunizations Vaccine Route Administration Date Status Comme nts Novel [id number], preservative free Unknown 02/25/2022 Administered Social History Tobacco Use: Social History Observation Description Date Details (start date - stop date) Former Smoker NA - NA Sex Assigned At : Social History Observation Description Sex Assigned At Male Social History Miscellaneous: Social Info Question Answer Notes Advance Care Planning Are you your own decision-maker Yes Do you have Power of Escalator Installer for Health or [facility]? No Safety issues: Are there any firearms in the house? No Social History Social Info Question Answer Notes Household: Marital Status: Number of Adults in household: 3 Number of Children in Household: 2 Level of Education: Finished High School Household: Social Info Question Answer Notes Household Marital status: Number of adults in household: 3 Drug/Alcohol: Social Info Question Answer Notes Drugs Have you used drugs other than those for medical reasons in the past 12 months? No AUDIT-C (Standard) Did you have a drink containing alcohol in the past year? No Caffeine Intake: none Tobacco Use: Social Info Question Answer Notes Tobacco Control (Standard) Tobacco use: Former smoker How long has it been since you last smoked? 1-5 years Additional Details Category Social Info Options Details Miscellaneous: Occupation: N/A Migrated Social History Migrated Social History Alcohol Intake: Moderate 01/06/2023,Tobacco Years: Former smoker 05/28/2022 Section Notes: Social History Substance Use Do [...] Do you have a medical power of utilization review rn?: No Public Health and Travel Have you [...] Do you have a medical power of utilization review rn?: No Gender Identity and LGBTQ Identity Gender [...] Do you have a medical power of utilization review rn?: No Gender Identity and LGBTQ Identity Gender [...] Do you have a medical power of utilization review rn?: No Gender Identity and LGBTQ Identity Gender [...] Do you have a medical power of utilization review rn?: No Public Health and Travel Have you [...] Do you have a medical power of utilization review rn?: No Gender Identity and LGBTQ Identity Gender [...] Do you have a medical power of utilization review rn?: No Public Health and Travel Have you [...] of electronic cigarettes Hx of Cocaine use Problems Problem Type SNOMED Code ICD Code Onset Dates Problem Status W/U Status Risk Notes Problem Vitamin D deficiency (64126176) Vitamin D deficiency, unspecified (E55.9) 05/29/19 24 Active confirmed Problem Schizoaffective disorder, depressive type (80356297) Schizoaffective disorder, depressive type (F25.1) 05/29/19 24 Active confirmed Problem Generalized anxiety disorder (16448861) Generalized anxiety disorder (F41.1) 05/29/19 24 Active confirmed Problem Long-term current use of drug therapy (892455809) 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) drug therapy (Z79.899) Active confirmed Problem Mixed hyperlipidemia (878189977) Mixed hyperlipidemia (E78.2) 12/22/19 18 Active confirmed Problem Chronic insomnia (879829763) Chronic insomnia (F51.04) 11/22/19 16 Active confirmed Problem Essential hypertension (22998418) Benign essential HTN (I10) 04/22/19 24 Active confirmed Vital Signs Heart Rate 65 /min 11/15/2024 Height-cm 187.96 cm 11/15/2024 Blood pressure diastolic 72 mm Hg 11/15/2024 Weight-kg 104.33 kg 10/15/2024 Height 74.00 in 11/15/2024 Blood pressure systolic 107 mm Hg 11/15/2024 Weight 230 lbs 10/15/2024 BMI 29.53 kg/m2 10/15/2024 Encounters Encounter Location Date Provider Diagnosis [facility] [address] [address] 12/03/2023 Ginette Childs Schizoaffective disorder, depressive type F25.1 ; Generalized anxiety disorder F41.1 ; Insomnia due to other mental disorder F51.05 and Vitamin D deficiency, unspecified E55.9 [facility] [address] [facility] [address] [place] [address] 01/06/2024 Ginette Revelestordarin Schizoaffective disorder, depressive type F25.1 ; Generalized anxiety disorder F41.1 ; Insomnia due to other mental disorder F51.05 and Vitamin D deficiency, unspecified E55.9 [facility] [address] [facility] [address] [place] [address] 02/06/2024 Sarah Hagopian Schizoaffective disorder, depressive type F25.1 ; Generalized anxiety disorder F41.1 ; Insomnia due to other mental disorder F51.05 ; Vitamin D deficiency, unspecified E55.9 and Benign essential HTN I10 [facility] [address] [facility] [address] [place] [address] 03/05/2024 Sarahrom Marcosross Schizoaffective disorder, depressive type F25.1 ; Generalized anxiety disorder F41.1 ; Insomnia G47.00 ; Vitamin D deficiency, unspecified E55.9 and Benign essential HTN I10 [place] [id number] [facility] [address] [place] [address] 04/02/2024 Sarahrom Marcosopian Schizoaffective disorder, depressive type F25.1 ; Generalized anxiety disorder F41.1 ; Insomnia due to other mental disorder F51.05 ; Vitamin D deficiency, unspecified E55.9 ; Benign essential HTN I10 and 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) drug therapy Z79.899 [facility] [address] [facility] [address] [place] [address] 05/07/2024 Sarahrom Marcosopian Schizoaffective disorder, depressive type F25.1 ; Chronic insomnia F51.04 ; Generalized anxiety disorder F41.1 ; Vitamin D deficiency, unspecified E55.9 ; Benign essential HTN I10 and 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) drug therapy Z79.899 [facility] [address] [facility] [address] [place] [address] 05/07/2024 Sarahrom Marcosopian Schizoaffective disorder, depressive type F25.1 [place] [address] [place] [address] 06/04/2024 Sarahrom Marcosopian Schizoaffective disorder, depressive type F25.1 ; Generalized anxiety disorder F41.1 ; Chronic insomnia F51.04 ; Benign essential HTN I10 ; Vitamin D deficiency, unspecified E55.9 and Encounter for screening for depression Z13.31 [facility] [place] [address] [place] [address] 07/02/2024 Sarah Hagopian Schizoaffective disorder, depressive type F25.1 ; Generalized anxiety disorder F41.1 ; Chronic insomnia F51.04 ; Benign essential HTN I10 ; Vitamin D deficiency, unspecified E55.9 and Encounter for screening for depression Z13.31 [facility] [place] [address] [place] [address] 07/16/2024 Sarah Hagopian Schizoaffective disorder, depressive type F25.1 ; Generalized anxiety disorder F41.1 ; Chronic insomnia F51.04 ; Vitamin D deficiency, unspecified E55.9 ; Benign essential HTN I10 ; Encounter for screening for depression Z13.31 and Encounter for screening for cardiovascular disorders Z13.6 [facility] [employer] [place] [address] 08/13/2024 Sarah Hagopian Schizoaffective disorder, depressive type F25.1 ; Generalized anxiety disorder F41.1 ; Chronic insomnia F51.04 ; Vitamin D deficiency, unspecified E55.9 ; Benign essential HTN I10 and Encounter for screening for depression Z13.31 [place] [address] [place] [address] 09/17/2024 Sarah Hagopian Generalized anxiety disorder F41.1 ; Schizoaffective disorder, depressive type F25.1 ; Vitamin D deficiency, unspecified E55.9 ; Chronic insomnia F51.04 ; Encounter for screening for cardiovascular disorders Z13.6 and Encounter for screening for depression Z13.31 [facility] [place] [address] [place] [address] 10/15/2024 Sarah Hagopian Schizoaffective disorder, depressive type F25.1 ; Generalized anxiety disorder F41.1 ; Chronic insomnia F51.04 and Vitamin D deficiency, unspecified E55.9 [facility] [place] [address] [place] [address] 11/15/2024 Sarah Hagopian Schizoaffective disorder, depressive type F25.1 ; Generalized anxiety disorder F41.1 ; Vitamin D deficiency, unspecified E55.9 and Chronic insomnia F51.04 [facility], [facility] [address] [place] [address] 05/24/2024 Sarah Bustos Insomnia G47.00 and Insomnia due to other mental disorder F51.05 [facility] [address] [place] [address] 07/21/2024 Sarah Bustos [facility], [facility] [address] [place] [address] 07/23/2024 Sarah Bustos Generalized anxiety disorder F41.1 [facility], [facility] [address] [place] [address] 10/12/2024 Sarah Bustos [facility], [facility] [address] [place] [address] 02/06/2024 Sarah Bustos [facility], [facility] [address] [place] [address] 02/24/2024 Sarah Bustos [facility], [facility] [address] [place] [address] 03/01/2024 Sarah Bustos Insomnia G47.00 and Generalized anxiety disorder F41.1 [facility] [address] [place] [address] 04/02/2024 Sarah Bustos [facility], [facility] [address] [place] [address] 06/08/2024 Sarah Bustos [facility], [facility] [address] [place] [address] 07/19/2024 Sarah Bustos [facility], [facility] [address] [place] [address] 07/23/2024 Sarah Bustos Generalized anxiety disorder F41.1 [facility], [facility] [address] [place] [address] 09/17/2024 Sarah Bustos Assessments Encounter Date Diagnosis (ICD Code) Assessment Notes Treatment Notes Treatment Clinical Notes Section Notes 11/15/2024 Schizoaffective disorder, depressive type (ICD-10 - F25.1) last shot given 10/15/24 03/01/2024 Insomnia (ICD-10 - G47.00) 05/24/2024 Insomnia (ICD-10 - G47.00) 05/07/2024 Schizoaffective disorder, depressive type (ICD-10 - F25.1) Verified the injection dose and diagnosis 03/01/2024 Generalized anxiety disorder (ICD-10 - F41.1) 12/03/2023 Schizoaffective disorder, depressive type (ICD-10 - F25.1) cont invega sustenna 156mg IM monthly-has 1 refill pending at [facility] [place] decrease seroquel to IR 200mg qhs staff [...] ~2-3wk time spans).*consider change to vraylar or invega/CORTÉS; consider clonidine 09/17/2024 Schizoaffective disorder, depressive type (ICD-10 - F25.1) 09/17/2024 Generalized anxiety disorder (ICD-10 - F41.1) 07/23/2024 Generalized anxiety disorder (ICD-10 - F41.1) Electronic Prior Authorization was requested for Vilazodone HCl 20 MG Tablet. Provider can order medication once approval received. 07/23/2024 Generalized anxiety disorder (ICD-10 - F41.1) 06/04/2024 Schizoaffective disorder, depressive type (ICD-10 - [...] labs including lipid panel and HbA1c at [facility] (order already placed) - Continue current antipsychotic [...] labs including lipid panel and HbA1c at [facility] (order already placed) - Continue current antipsychotic [...] sleep apnea evaluation if sleep disturbances persist 11/15/2024 Generalized anxiety disorder (ICD-10 - F41.1) 07/16/2024 Schizoaffective disorder, depressive type (ICD-10 - F25.1) 05/07/2024 Schizoaffective disorder, depressive type (ICD-10 - [...] in 4 weeks, sooner if concerns arise 05/07/2024 Chronic insomnia (ICD-10 - F51.04) Still [...] mood, and hallucinations at that time. 02/06/2024 Schizoaffective disorder, depressive type (ICD-10 - [...] 156 sustenna sample in office -invega to [facility] cont seroquel 200mg qhs next visit [...] ~2-3wk time spans).*consider change to vraylar or invega/CORTÉS; consider clonidine 10/15/2024 Schizoaffective disorder, depressive type (ICD-10 - F25.1) 10/15/2024 Generalized anxiety disorder (ICD-10 - F41.1) 03/05/2024 Schizoaffective disorder, depressive type (ICD-10 - [...] cont vitamin d follow up 4 weeks 08/13/2024 Schizoaffective disorder, depressive type (ICD-10 - F25.1) 08/13/2024 Generalized anxiety disorder (ICD-10 - F41.1) 07/02/2024 Schizoaffective disorder, depressive type (ICD-10 - F25.1) 07/02/2024 Generalized anxiety disorder (ICD-10 - F41.1) 08/13/2024 Chronic insomnia (ICD-10 - F51.04) 07/02/2024 Chronic insomnia (ICD-10 - F51.04) 03/05/2024 Generalized anxiety disorder (ICD-10 - F41.1) [...] cont vitamin d follow up 4 weeks 10/15/2024 Chronic insomnia (ICD-10 - F51.04) 01/06/2024 Generalized anxiety disorder (ICD-10 - F41.1) meds as above recommend counseling 02/06/2024 Insomnia due to other mental disorder (ICD-10 - F51.05) as above practice good sleep hygiene 04/02/2024 Insomnia due to other mental disorder [...] sleep, mood, and hallucinations at that time. 11/15/2024 Vitamin D deficiency, unspecified (ICD-10 - E55.9) 05/07/2024 Generalized anxiety disorder (ICD-10 - F41.1) [...] in 4 weeks, sooner if concerns arise 07/16/2024 Generalized anxiety disorder (ICD-10 - F41.1) 06/04/2024 Chronic insomnia (ICD-10 - F51.04) Dominik [...] labs including lipid panel and HbA1c at [facility] (order already placed) - Continue current antipsychotic [...] sleep apnea evaluation if sleep disturbances persist 05/24/2024 Insomnia due to other mental disorder (ICD-10 - F51.05) 12/03/2023 Generalized anxiety disorder (ICD-10 - F41.1) meds as above recommend counseling 09/17/2024 Vitamin D deficiency, unspecified (ICD-10 - E55.9) 10/15/2024 Vitamin D deficiency, unspecified (ICD-10 - E55.9) 02/06/2024 Vitamin D deficiency, unspecified (ICD-10 - E55.9) notes PCP was prescribing, no longer seeing and getting a new PCP soon. sent prescription for vitamin D 12/03/2023 Insomnia due to other mental disorder (ICD-10 - F51.05) cont trazodone 100mg take 1-2 qhs prn (only if needed, if sedation or oversleeping with other med changes- do not take) practice good sleep hygiene 09/17/2024 Chronic insomnia (ICD-10 - F51.04) 06/04/2024 Benign essential HTN (ICD-10 - I10) Dominik Fett presents with ongoing anxiety, auditory and visual [...] labs including lipid panel and HbA1c at [facility] (order already placed) - Continue current antipsychotic [...] sleep apnea evaluation if sleep disturbances persist 11/15/2024 Chronic insomnia (ICD-10 - F51.04) 04/02/2024 Vitamin D deficiency, unspecified (ICD-10 - [...] mood, and hallucinations at that time. 05/07/2024 Vitamin D deficiency, unspecified (ICD-10 - [...] in 4 weeks, sooner if concerns arise 07/16/2024 Chronic insomnia (ICD-10 - F51.04) 01/06/2024 Insomnia due to other mental disorder (ICD-10 - F51.05) cont trazodone 100mg take 1-2 qhs prn consider OTC melatonin 3-5mg qhs prn, no more than 10mg practice good sleep hygiene 03/05/2024 Insomnia (ICD-10 - G47.00) ongoing anxiety [...] cont vitamin d follow up 4 weeks 08/13/2024 Vitamin D deficiency, unspecified (ICD-10 - E55.9) 07/02/2024 Benign essential HTN (ICD-10 - I10) 08/13/2024 Benign essential HTN (ICD-10 - I10) 07/02/2024 Vitamin D deficiency, unspecified (ICD-10 - E55.9) 03/05/2024 Vitamin D deficiency, unspecified (ICD-10 - [...] cont vitamin d follow up 4 weeks 12/03/2023 Vitamin D deficiency, unspecified (ICD-10 - [...] deficiency, unspecified (ICD-10 - E55.9) PCP prescribes 04/02/2024 Benign essential HTN (ICD-10 - I10) [...] mood, and hallucinations at that time. 05/07/2024 Benign essential HTN (ICD-10 - I10) [...] in 4 weeks, sooner if concerns arise 07/16/2024 Vitamin D deficiency, unspecified (ICD-10 - [...] labs including lipid panel and HbA1c at [facility] (order already placed) - Continue current antipsychotic [...] sleep apnea evaluation if sleep disturbances persist 09/17/2024 Encounter for screening for cardiovascular disorders (ICD-10 - Z13.6) 09/17/2024 Encounter for screening for depression (ICD-10 - Z13.31) 05/07/2024 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) drug therapy (ICD-10 - Z79.899) Still [...] in 4 weeks, sooner if concerns arise 07/16/2024 Benign essential HTN (ICD-10 - I10) 04/02/2024 Other half-way (current) drug therapy (ICD-10 - Z79.899) Assessment [...] mood, and hallucinations at that time. 03/05/2024 Benign essential HTN (ICD-10 - I10) [...] cont vitamin d follow up 4 weeks 08/13/2024 Encounter for screening for depression (ICD-10 - Z13.31) 07/02/2024 Encounter for screening for depression (ICD-10 - Z13.31) 07/16/2024 Encounter for screening for depression (ICD-10 [...] labs including lipid panel and HbA1c at [facility] (order already placed) - Continue current antipsychotic [...] screening for cardiovascular disorders (ICD-10 - Z13.6) 02/06/2024 Other Checking when last labs were drawn, last EKG done. If able, check in next week to see how things are going. follow up 4 weeks, call sooner if concerns arise 07/02/2024 Other Dominik Reece, a patient with a history of schizoaffective [...] Monitor sleep quality with anxiety treatment adjustment 09/17/2024 Dinesh Reece presents with worsening anxiety, progressing auditory and visual hallucinations, and mild paranoia, reporting inadequate response to current medication regimen. Anxiety Disorder Assessment: Patient reports severe anxiety, which he identifies as his primary concern. He experiences difficulty with simple tasks like driving short distances due to anxiety. Current medication Vilazodone appears ineffective in managing these symptoms. The patient believes that addressing his anxiety would significantly improve his overall condition. Despite these challenges, the patient denies any suicidal ideation. Sleep appears to be adequately managed with current medication (Trazodone). [employer] reveals Fetzima and Pristiq as good options to consider. Plan: - Initiate Pristiq for anxiety and associated symptoms: - Week 1: 25 mg PO daily - Week 2: Increase to 50 mg PO daily - Week 3: Continue 50 mg PO daily - Week 4: Continue 50 mg PO daily - Taper vilazodone: - Week 2: Decrease to 20 mg PO daily - Week 3: Decrease to 10 mg PO daily - Week 4: Discontinue - Continue Trazodone Schizaffective Disorder The patient also reports progressing auditory and visual hallucinations, described as mumbles and shadows, which have become more bothersome. Mild paranoia is present, particularly when going out. acknowledges some improvement in hallucinations and paranoia since starting injectable medication, suggesting partial response to current treatment. Plan: - Administer next injection in 2-3 weeks - Follow-up appointment in 4 weeks 10/15/2024 Dinesh Reece presents with worsening psychotic symptoms, paranoia, and anxiety, exacerbated by recent diagnosis of lung nodules. 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 These symptoms appear to be increasing in frequency and intensity. He is due for a medication injection today. Plan: - Continue Invega Trinza - Administer scheduled injection Paranoia Assessment: Patient confirms experiencing increased paranoid thoughts, though specific details were not provided. This symptom appears to be occurring alongside the resurgence of hallucinations, suggesting a possible exacerbation of the underlying psychotic disorder. Plan: - Monitor paranoid symptoms and their impact on daily functioning Anxiety Assessment: Patient reports significant anxiety, described as driving me nuts. This anxiety appears to be exacerbated by a recent diagnosis of lung nodules, for which the patient is awaiting follow-up imaging in approximately 2 months. If growth is detected, a biopsy may be necessary. Plan: - Increase Pristiq XR from 50 mg to 100 mg PO daily - Informed him that benefits may not be apparent in the first month due to adjustment period - Advised him that dry mouth side effect may resolve with time - Instructed him that tablets cannot be split due to extended-release formulation - Discussed option to decrease dose if needed - Follow up in 4 weeks - Monitor anxiety symptoms and their response to medication adjustment - Advised him to keep provider updated on lung nodule follow-up Lung Nodules Assessment: Patient reports recent diagnosis of lung nodules, discovered on imaging approximately one month ago. Follow-up scan scheduled in about 2 months to assess for growth, which may necessitate a biopsy if changes are observed. This medical concern is contributing to the patient's anxiety. Plan: - Encourage him to attend scheduled follow-up imaging for lung nodules - Assess impact of medical uncertainty on mental health symptoms at next visit 11/15/2024 Other Dominik Reece, male patient with history of anxiety, presenting with severe anxiety symptoms impacting daily activities, particularly driving. Generalized Anxiety Disorder Assessment: Patient reports severe anxiety, particularly related to driving and worrying about potential car issues. Physical symptoms include palpitations and tremors. Previous treatments have included multiple medication trials including Viibryd, BuSpar, clonidine, Rexulti, Vraylar, Caplyta, and Trintellix, which were not helpful or had limited efficacy. Currently on Pristiq, which has not adequately controlled symptoms. Plan: - Decrease Pristiq to 50 mg - Initiate clonidine: - Morning dose: 0.1 mg - Bedtime dose: 0.2 mg - May increase up to 0.4 mg twice daily if needed - Monitor for side effects: fatigue, dizziness, blood pressure changes - Follow-up in 4 weeks Insomnia Assessment: Patient is currently using trazodone for sleep management. Plan: - Continue trazodone Pulmonary Nodules Assessment: Recent scan revealed small nodules on lungs. Patient's physician does not appear concerned but has recommended follow-up imaging. Plan: - Repeat scan in 3 months to assess for growth Schizoaffective depressive type Assessment: Patient denies experiencing hallucinations or paranoia. Invega Trinza appears to be effectively managing psychotic symptoms. Depressive symptoms relatively well controlled, with some depression which he relatesas being secondary to anxiety being unmanaged. Plan: - Continue Invega Trinza injections - Monitor for psychosis and changes in mood with medication adjustments Medical Decision Making Dominik Reece is a male patient presenting with severe anxiety as his primary complaint. The patient's anxiety is significantly impacting his daily life, particularly when driving, with associated physical symptoms including heart palpitations and shakiness. Previous treatments for anxiety, including Pristiq, Viibryd, BuSpar, clonidine, Rexulti, Vraylar, Caplyta, and Trondelix, have been ineffective or inadequately effective. The clinician considered multiple pharmacological options for managing the patient's anxiety, including switching from Pristiq to Fetzima, retrying clonidine at a higher dose, or trying Vraylar. After discussing these options, the decision was made to retry clonidine at an increased dosage, based on the patient's preference and previous medication trials. The clinician also took into account the patient's recent lung scan showing small nodules, which will require follow-up in 3 months, as a potential contributing factor to the patient's anxiety. 07/21/2024 Other Electronic Prior Authorization was requested for Vilazodone HCl 20 MG Tablet. Provider can order medication once approval received. Plan Of Treatment Pending Test Test Name Order Date LIPID PANEL, STANDARD (7600) 04/02/2024 COMPREHENSIVE METABOLIC PANEL (17088) CBC (INCLUDES DIFF/PLT) (6399) HEMOGLOBIN A1c (496) 04/02/2024 [id number] GENOTYPE (25750) 07/02/2024 Next Appt Details Provider Name:Sarah jin, 12/22/2024 08:45:00 AM, [address], [facility] [address], [address], Provider Name:Tay Finley , 12/22/2024 09:00:00 AM, [address], [facility] [address], [place], [address], Insurance Providers Payer Name Payer Address Payer Phone Subscriber Number Group Number Insured Name Patient Relationship to Insured Coverage Start Date Coverage End Date Thelma DESOUZA [id number] [place] [phone] [id number] COURTNEY REECE Self - patient is the insured Medications Administered Medication Instructions Date of Administration Dosage Notes Invega Sustenna 10/08/2023 156 mg Invega Sustenna 11/05/2023 Invega Sustenna 12/03/2023 156 mg Invega Sustenna 01/06/2024 156 mg Invega Sustenna 10/01/2023 234 mg Invega Trinza 02/06/2024 546 mg Invega Trinza 05/07/2024 819 mg Evaristokenya Kyra ho tched Invega Trinza 07/16/2024 819 mg Invega Trinza 10/15/2024 819 mg Medical (General) History Medical History History ICD Code Schizoaffective disorder, depressive typ e F25.1 Generalized anxiety disorder F41.1 Insomnia due to other mental disorder F5 1.05 Vitamin D deficiency, unspecified E55.9 Benign essential HTN I10 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
[2024-11-17 11:22] VITALS: BP 117/83; PULSE 81; RESP 18; TEMP 35.9; O2SAT 99; BMI 28.2
[2024-11-17] MEDS: LACTATED RINGERS 1,000 ML 150 ML IV CONT (11:36)
--- NOTE | 2024-11-17 12:22 | WPDANESEPPF ---
Anes - Initial Pre Proc Eval Procedure: Operation Date: 11/17/24 12:30 Proposed Procedures p Screening Colonoscopy - Rudy Melara MD Date/Time: 11/17/24 12:22 Surgeon: Rudy Melara MD Pre Op Diagnosis: neoplasm screening Patient Data Age: 59 Gender: M Height: 1.88 m Weight: 99.7 kg Last Vital Signs Temp 35.9 C L 11/17/24 11:22 Pulse 81 11/17/24 11:22 Resp 18 11/17/24 11:22 BP 117/83 11/17/24 11:22 Pulse Ox 99 11/17/24 11:22 O2 Del Method Room Air 11/17/24 11:22 Allergies Allergy/AdvReac Type Severity Reaction Status Date / Time No Known Allergies Allergy Verified 11/17/24 11:19 Home Medications ?Medication ?Instructions ?Recorded ?Confirmed ?Type empagliflozin 25 mg tablet 25 mg PO DAILY 08/27/24 11/17/24 History (Jardiance) metformin 500 mg tablet,extended 500 mg PO BID 08/27/24 11/17/24 History release 24 hr rosuvastatin 20 mg tablet 20 mg PO DAILY 08/27/24 11/17/24 History baclofen 10 mg tablet mg PO 11/17/24 History Laboratory Tests 11/17/24 11:32 POC Capillary Glucose 106 H mg/dl (65-105) Patient hx anesthesia problems: none Family hx anesthesia problems: none Results Review: All pre-operative results and documents have been reviewed as part of the pre-operative evaluation. [facility] Past Medical History Medical History (Updated 11/17/24 @ 12:25 by Brandon Mejia MD) Diabetes QUYEN (obstructive sleep apnea) Surgical History Surgical History (Updated 11/17/24 @ 12:25 by Brandon Mejia MD) S/P cervical spinal fusion Social History Social History Smoking status: Former smoker Tobacco type: cigarettes Substance use type: does not use Living arrangements: with family Spiritual care concerns: No Anes - Eval Final PreProcedure Day of Procedure 11/17/24 12:22 Patient weight: overweight Heart: regular rate and rhythm Lungs: clear to auscultation Airway: Mallampati scale class II Neurological: alert and oriented Last oral intake: >/= 8 hours ASA classification: III Emergent: no Anesthetic plan: proceed Anesthesia type and monitoring: general GIVS and standard monitoring Results Review: All pre-operative results and documents have been reviewed as part of the pre-operative evaluation. Informed Consent: The patient's anesthetic plan and its attendant risks and benefits were discussed with the patient/family/POA. Questions were solicited and answers provided to the satisfaction of the patient/family/POA.
--- NOTE | 2024-11-17 12:40 | PM.HPGS ---
History of Present Illness History of Present Illness Consent: Risks, benefits, and alternatives have been discussed and questions answered. Patient agrees to proceed with procedure. Chief complaint: neoplasm screening Narrative: Ilia Ricketts is a 59 year old male here for screening colonoscopy, had one about 15 years ago Review of Systems Review of Systems: All systems reviewed & are unremarkable except as noted in HPI and below PMFSH Past Medical History Medical History (Updated 11/17/24 @ 12:40 by Rudy Melara MD) Colon cancer screening Diabetes QUYEN (obstructive sleep apnea) Surgical History Surgical History (Updated 11/17/24 @ 12:25 by Brandon Mejia MD) S/P cervical spinal fusion Social History Social History Smoking status: Former smoker Tobacco type: cigarettes Substance use type: does not use Living arrangements: with family Spiritual care concerns: No Meds Home Medications and Allergies Home Medications ?Medication ?Instructions ?Recorded ?Confirmed ?Type empagliflozin 25 mg tablet 25 mg PO DAILY 08/27/24 11/17/24 History (Jardiance) metformin 500 mg tablet,extended 500 mg PO BID 08/27/24 11/17/24 History release 24 hr rosuvastatin 20 mg tablet 20 mg PO DAILY 08/27/24 11/17/24 History baclofen 10 mg tablet mg PO 11/17/24 History Allergies Allergy/AdvReac Type Severity Reaction Status Date / Time No Known Allergies Allergy Verified 11/17/24 11:19 Vital Signs Vital Signs - 24 hr 11/17/24 11:22 Temperature 96.7 F L Pulse Rate 81 Respiratory Rate 18 Blood Pressure 117/83 Pulse Oximetry 99 Oxygen Delivery Room Air Exam Const: General: comfortable and no acute distress HENMT: Face/Nose/Sinus: Normal nares present Eyes: General: appearance normal, both eyes and all related structures Neck: Neck: no JVD Resp: Auscultation: clear to auscultation bilaterally Cardio: Rate: regular rate Rhythm: regular rhythm GI: Inspection: non-distended GI Palp: Yes Soft to palpation Skin: General skin exam: normal color Neuro: General: gait normal Speech: normal speech Extrem: General: normal to inspection Psych: Mental Status: mental status grossly normal Assessment and Plan Assessment and plan (1) Colon cancer screening: Code(s): Z12.11 - Encounter for screening for malignant neoplasm of colon Status: Acute Assessment and Plan: colonoscopy
[2024-11-17 13:00] VITALS: BP 97/66; PULSE 69; RESP 15; O2SAT 97
--- NOTE | 2024-11-17 13:03 | S_PTH ---
PATIENT: Ilia Ricketts LOC: ERICA Carrillo#:[id number] AGE/SX: 59/M ROOM: RE11/17/[address]: Rudy Melara MD : 1965 BED: DIS: 11/17/2024 SPEC #: [id number] RECD: 11/17/24 13:33 STATUS: GIOVANNI REQ #: [id number] COLLIN: 11/17/24 13:[address]: Rudy Melara DEPT: [facility] Surgical RECD BY: Diana Acevedo ENTERED: 11/17/24 13:33 SP TYPE: Surgical OTHR DR: Sadi CisnerosMD Tissues: A - Colon Polypectomy B - Colon Polypectomy Procedures: Hematoxylin and Eosin Stain Gross and Microscopic Level 4
[2024-11-17 13:10] VITALS: BP 95/65; PULSE 65; RESP 18; O2SAT 99
[2024-11-17 13:20] VITALS: BP 121/81; PULSE 76; RESP 17; O2SAT 99
== END 2024-11-17 13:42 | disposition home or self-care (01) ==
PROVIDERS: PCP Family Medicine; Referring Provider Family Medicine; Visit Provider Internal Medicine Gastroenterology
PROC: 0DJD8ZZ Inspection of Lower Intestinal Tract, Via Natural or Artificial Opening Endoscopic (ICD-10-PCS; CPT 45378; principal; 2024-11-17 12:30)
DX: Z12.11 Encounter for screening for malignant neoplasm of colon (principal); D12.5 Benign neoplasm of sigmoid colon; K63.5 Polyp of colon; K64.8 Other hemorrhoids; E11.9 Type 2 diabetes mellitus without complications; G47.33 Obstructive sleep apnea (adult) (pediatric); Z79.84 Long term (current) use of oral hypoglycemic drugs; Z98.1 Arthrodesis status; Z87.891 Personal history of nicotine dependence
CPT/HCPCS: 45385; 82948; 88305; J2003; J2704; J7120

== ENCOUNTER 2024-12-02 07:43 | Outpatient (CLI) | payer OTHER, SELFPAY ==
--- OUTSIDE RECORDS SUMMARY | 2024-08-13 06:00 | XMS_ITS ---
Author Organization [facility] [place] Address [address] [place] [address] Care Team Providers Care Water Manager Name Role Phone Deepak Plunkett MD Primary Care Provider Unavail able Juli Sarah Unavailable [phone] Tay Guzmán Unavailable [phone] REASON FOR VISIT invegga 819mg: PT DID NOT GET HIS INJECTION TODAY Medications Medication SIG (Take, Route, Frequency, Duration) Notes Start Date End Date Status Vilazodone HCl 20 MG Tablet 1 tablet once a day for 30 days Orally Once a day; Duration: 30 days PA approved 07/26/2024 Active Vitamin D (Ergocalciferol) 1.25 MG (09862 UT) Capsule TAKE 1 CAPSULE BY MOUTH ONCE WEEKLY ON MONDAYS; Duration: 84 Active Caplyta 21 MG Capsule 1 capsule Orally Once a day; Duration: 30 days samples given, do not fill/send 06/28/2024 Not-Taking Invega Trinza 819 MG/2.63ML Suspension Prefilled Syringe as directed Intramuscular every 12 weeks dispense to office 07/16/2024 Active Jardiance 25 MG Tablet 1 tablet Oral; Duration: 30 days Active Albuterol Sulfate HFA 108 (90 Base) MCG/ACT Aerosol Solution Inhalation; Duration: 75 Days Active traZODone HCl 100 MG Tablet 1-2 tabs at bedtime Oral daily; Duration: 30 days Active metFORMIN HCl ER 500 MG Tablet Extended Release 24 Hour TAKE 1 TABLET BY MOUTH TWICE DAILY BEFORE BREAKFAST AND DINNER. Oral; Duration: 90 Days Active Rosuvastatin Calcium 20 MG Tablet Oral; Duration: 90 Days Active Social History Sex Assigned At : Social History Observation Description Sex Assigned At Male Encounters Encounter Location Date Provider Diagnosis [facility] [address] [facility] [address] [place] [address] 08/13/2024 Tay Guzmán Plan Of Treatment Next Appt Details Provider Name:Sarah jin, 12/22/2024 08:45:00 AM, [address], [facility] [address], [place], [address], Provider Name:Tay Guzmán , 12/22/2024 09:00:00 AM, [address], [facility] [address], [place], [address], Progress Notes * COURTNEY REECEDOB:1965 (59 yo M)Acc No.[id number]:08/13/2024 Progress Note Patient: COURTNEY OSCAR Provider: Clinton GUZMÁN MD :1965 A ge:58 Y S ex:Male Date:08/13/2024 [facility] Pcp:Deepak lPunkett MD Subjective: * Chief Complaints: * i nvegga 819mg: PT DID NOT GET HIS INJECTION TODAY * Active Problem List F25.1 Schizoaffective diso rder, depressive type Onset Date:05/29/2023Modified On:10/01/2023/U Status:confirmed F41.1 Generalized anxiety disorder Onset Date:05/29/2023Modified On:10/01/2023U Status:confirmed E55.9 Vitamin D deficiency , unspecified Onset Date:05/29/2023Modified On:10/01/2023/U Status:confirmed I10 Benign essential HTN Onset Date:04/22/2023Modified On:05/12/2024U Status:confirmedClinical Status:active Z79.899 Other manager terminal (cur rent) drug therapy Modified On:04/03/2024/U Status:confirmed F51.04 Chronic insomnia Onset Date:11/22/2015Modified On:02/12/2025W/U Status:confirmedClinical Status:active E78.2 Mixed hyperlipidemia Onset Date:12/21/2017Modified On:05/12/2024W/U Status:confirmedClinical Status:active * Medications: T akingtraZODone HCl 100 MG Tablet 1-2 tabs at bedtime Oral daily Rosuvastatin Calcium 20 MG Tablet Oral metFORMIN HCl ER 500 MG Tablet Extended Release 24 Hour TAKE 1 TABLET BY MOUTH TWICE DAILY BEFORE BREAKFAST AND DINNER. Oral Albuterol Sulfate HFA 108 (90 Base) MCG/ACT Aerosol Solution Inhalation Jardiance 25 MG Tablet 1 tablet Oral Invega Trinza 819 MG/2.63ML Suspension Prefilled Syringe as directed Intramuscular every 12 weeks dispense to officeVitamin D (Ergocalciferol) 1.25 MG (24841 UT) Capsule TAKE 1 CAPSULE BY MOUTH ONCE WEEKLY ON MONDAYS Vilazodone HCl 20 MG Tablet 1 tablet once a day for 30 days Orally Once a day , Notes to Pharmacist: PA approvedTaking traZODone HCl 100 MG Tablet 1-2 tabs at bedtime Oral daily Taking Rosuvastatin Calcium 20 MG Tablet Oral Taking metFORMIN HCl ER 500 MG Tablet Extended Release 24 Hour TAKE 1 TABLET BY MOUTH TWICE DAILY BEFORE BREAKFAST AND DINNER. Oral Taking Albuterol Sulfate HFA 108 (90 Base) MCG/ACT Aerosol Solution Inhalation Taking Jardiance 25 MG Tablet 1 tablet Oral Taking Invega Trinza 819 MG/2.63ML Suspension Prefilled Syringe as directed Intramuscular every 12 weeks dispense to officeTaking Vitamin D (Ergocalciferol) 1.25 MG (75907 UT) Capsule TAKE 1 CAPSULE BY MOUTH ONCE WEEKLY ON MONDAYS Taking Vilazodone HCl 20 MG Tablet 1 tablet once a day for 30 days Orally Once a day , Notes to Pharmacist: PA approvedNot-TakingCaplyta 21 MG Capsule 1 capsule Orally Once a day , Notes to Pharmacist: samples given, do not fill/sendNot-Taking Caplyta 21 MG Capsule 1 capsule Orally Once a day , Notes to Pharmacist: samples given, do not fill/send Billing Information: * Procedure Codes: * Electronic signature of Rosalio Guzmán MD on 12/02/2024 at 07:47 AM CDT Sign off status: Pending * Provider: Clinton GUZMÁN MD Date: 0 08/13/2024 Generated for Erika gottlieb/Iveth/Florencia on: 0 12/02/2024 07:47 AM CDT
--- OUTSIDE RECORDS SUMMARY | 2024-11-09 05:30 | XMS_ITS ---
Author Organization [facility] Address [address] [place] [address] Care Team Providers Care Diamond Driller Helper Name Role Phone RIAN MACHUCA Primary Care Provider Paty Hutson [phone] Allergies No Known Allergies REASON FOR VISIT [...] Active Encounters Encounter Location Date Provider Diagnosis [facility]-[address] [address] 11/09/2024 Ptay Canela Lumbar Spondylosis without Myelopathy M47.816 Assessments Encounter Date Diagnosis (ICD Code) Assessment Notes Treatment Notes Treatment Clinical Notes Section Notes 11/09/2024 Lumbar Spondylosis without Myelopathy (ICD-10 - M47.816) Plan Of Treatment Next Appt Details Provider Name:Paty Weber pher, 12/07/2024 10:00:00 AM, [address] [place], [address], Provider Name:Paty whittaker, 12/28/2024 10:00:00 AM, [address] [place], [address], Progress Notes * Solo REECEB:1965 (59 yo M)Acc No.[id number]:11/09/2024 Injection Patient: Ilia OSCAR Provider: Alana Canela MD :1965 A ge:59 Y S ex:Male Date:11/09/2024 Address:[address] [place] [address] Pcp:RIAN MACHUCA Subjective: * Chief Complaints: * [...] JNT L/S 1 LEV, Modifiers: RT , 92948 INJ PARAVERT F JNT L/S 2 LEV, Modifiers: RT , 89144 X-RAY EXAM OF LOWER SPINE, J1010 Injection, methylprednisolone acetate, 1 mg, Units: 80.00 , Modifiers: JZ * * Electronic signature of Paty Canela MD on 12/02/2024 at 07:46 AM CDT Sign off status: Pending * Provider: Alana Canela MD Date: 0 11/09/2024 Generated for Erika gottlieb/Iveth/Florencia on: 0 12/02/2024 07:46 AM CDT History and Physical Notes * [...]
--- OUTSIDE RECORDS SUMMARY | 2024-11-12 04:45 | XMS_ITS ---
Author Organization [facility] Address [address] [place] [address] [address] Care Team Providers Care Production Reproduction Manager Name Role Phone Deepak Plunkett MD Primary Care Provider Unavail Sarah Bowden Unavailable [phone] REASON FOR VISIT 1 month f/u & Injection Social History Sex Assigned At : Social History Observation Description Sex Assigned At Male Encounters Encounter Location Date Provider Diagnosis [facility] [employer] [address] [address] 11/12/2024 Sarah Bustos Plan Of Treatment Next Appt Details Provider Name:Sarah jin, 12/22/2024 08:45:00 AM, [address] [place] [address] [address], [address], [address], Provider Name:Tay Finley , 12/22/2024 09:00:00 AM, [address] [place] [address], [address], [address], Progress Notes * COURTNEY REECEDOB:1965 (59 yo M)Acc No.[id number]:11/12/2024 Patient: COURTNEY OSCAR Provider: Yeyo Bustos :1965 A ge:59 Y S ex:Male Date:11/12/2024 [facility] [facility] Pcp:Deepak Plunkett MD Subjective: * Chief Complaints: * 1 month f/u & Injection Billing Information: * Procedure Codes: * Electronic signature of Preet Bustos on 12/02/2024 at 07:46 AM CDT Sign off status: Pending * Provider: Yeyo Bustos Date: 0 11/12/2024 Generated for Erika Gongora on: 0 12/02/2024 07:46 AM CDT
--- OUTSIDE RECORDS SUMMARY | 2024-11-30 03:00 | XMS_ITS ---
Author Organization [facility] Address [address] [place] [address] Care Team Providers Care Pre School Teacher Name Role Phone RIAN MACHUCA Primary Care Provider Paty Hutson Unavailable [phone] Bowen Sarabia [phone] REASON FOR VISIT 4 Wks + RX Encounters Encounter Location Date Provider Diagnosis [facility] [address] [place] [address] 11/30/2024 Bowen Sarabia Assessments Encounter Date Diagnosis (ICD Code) Assessment Notes Treatment Notes Treatment Clinical Notes Section Notes 11/30/2024 Other Notes: Significant time was spent due to complex decision-making as a result of the patient's complicated pain issues. The plan is as follows: Patient will continue exercise therapy regimen. Assessment is unchanged from 11/11/24 except as denoted below. Plan Of Treatment Treatment Notes Assessment Notes Other Notes: Significant time was spent due to complex decision-making as a result of the patient's complicated pain issues. The plan is as follows: Patient will continue exercise therapy regimen. Next Appt Details Provider Name:Paty Morgano pher, 12/07/2024 10:00:00 AM, [address] [place], [address], Provider Name:Paty Velasquez Gus pher, 12/28/2024 10:00:00 AM, [address] [place], [address], Progress Notes * Ilia REECEDOB:1965 (59 yo M)Acc No.[id number]:11/30/2024 Progress Notes Patient: Ilia OSCAR Provider: CHLOE Reyes :1965 A ge:59 Y S ex:Male Date:11/30/2024 Address:[address] [place] [address] Pcp:RIAN MACHUCA Subjective: * Chief Complaints: * 1 . 4 Wks + RX. * HPI: C omplaints: On a scale of 1-10 how would you rate your pain today? Patient reports pain rated at a level Where is your pain today and how long has the pain been present? Patient reports pain located How would you describe your pain, is it aching, stabbing, dull, sharp or burning? Patient reports Is there anything that you do that makes the pain better? Patient reports the pain decreases with Is there anything that you do that makes the pain worse? Patient reports the pain increases with What daily activities does your pain make more difficult? Patient reports How many hours of sleep a night would you say you're getting? Patient reports obtaining hours of sleep per night. Is the pain causing you to wake up at night, if so how often? Patient reports What medications are you currently taking to manage the pain and how long have you been taking these medications? Patient reports taking Have you had any injections recently and if you have, how much relief have you gotten from those? Patient reports Have you had any recent falls? Patient reports The pain disability index score at today's visit is: ____. * Medical History: Objective: * Vitals: * Examination: G eneral Examination: P hysical exam is unchanged from 11/11/24 except as denoted below. GENERAL APPEARANCE: well developed, well nourished, alert, and cooperative; in no apparent distress HEAD: normocephalic, atraumatic EYES: sclera non-icteric, extra ocular eye movements intact CHEST: respiratory rate normal, no signs of respiratory distress SKIN: no suspicious lesions, no rashes, no edema NEURO: Normal speech; walking unassisted without a cane or a walker. Assessment: * Assessment: Assessment is unchanged from 11/11/24 except as denoted below. Plan: * Treatment: * * Electronic signature of CHLOE Rasheed on 12/02/2024 at 07:47 AM CDT Sign off status: Pending * Provider: CHLOE Reyes Date: 11/30/2024 Generated for Erika gottlieb/Iveth/Florencia on: 12/02/2024 07:47 AM CDT History and Physical Notes * Examination Category Sub-Category Detail Notes Category Not es General Examination Physical exam is unchanged from 11/11/24 except as denoted below. GENERAL APPEARANCE: well developed, well nourished, alert, and cooperative; in no apparent distress HEAD: normocephalic, atraumatic EYES: sclera non-icteric, extra ocular eye movements intact CHEST: respiratory rate normal, no signs of respiratory distress SKIN: no suspicious lesions, no rashes, no edema NEURO: Normal speech; walking unassisted without a cane or a walker
--- OUTSIDE RECORDS SUMMARY | 2024-12-02 07:47 | XMS_ITS | Clinical Summary ---
Author Organization [facility] Address [address] [place] [address] Care Team Providers Care Ict Support And Test Engineers Name Role Phone Unavailable Primary Care Provider Unavailabl e Source Comments [facility],non-owned Affiliates and Associated Physician Practices is amultiple site organization consisting of ambulatory clinics and hospital sitesin [place], [place], [place] and [place]. This disclosure is being madepursuant to the Care Everywhere program and may not contain all information available regarding this patient. Last updated 17.[facility] [employer] Social History Tobacco Use Types Packs/Day Years [...] age to complete this topic Insurance [employer] SELF PAY NO INSURANCE Member Subscriber Plan / Payer (Ef fective for All Dates) Name:Courtney Reeec Member ID:Not on file Relation to Subscriber:Not on file Name:COURTNEY REECE Subscriber ID:Not on file Address: [place] [address] Payer ID:Not on file Group ID:Not on file Type:Self Pay Address: [place], [place] [employer]
--- OUTSIDE RECORDS SUMMARY | 2024-12-02 07:47 | XMS_ITS | Patient Health Record ---
Author Organization [facility] [employer] Address [address] [place] [address] Care Team Providers Care Doctor Of Nurse Anesthesia Name Role Phone Deepak Plunkett MD Primary Care Provider Unavail able Sarah Bustos Unavailable [phone] Tay Finley Unavailable [phone] Ginette Childs Unavailable [phone] Allergies No Known Allergies Reason For Referral No Information Medications Medication SIG (Take, Route, Frequency, Duration) Notes Start Date End Date Status Desvenlafaxine Succinate ER 50 MG Tablet Extended Release 24 Hour 1 tablet Orally Once a day; Duration: 30 days decreasing 11/15/2024 Active traZODone HCl 100 MG Tablet TAKE 1 TO 2 TABLETS BY MOUTH DAILY AT BEDTIME; Duration: 90 Active cloNIDine HCl ER 0.1 MG Tablet Extended Release 12 Hour 1 tablet in the morning, 2 tablets in the evening Orally see sign; Duration: 30 days 11/15/2024 Active Rosuvastatin Calcium 20 MG Tablet Oral; Duration: 90 Days Active Jardiance 25 MG Tablet 1 tablet Oral; Duration: 30 days Active Vitamin D (Ergocalciferol) 1.25 MG (17715 UT) Capsule TAKE 1 CAPSULE BY MOUTH ONCE WEEKLY ON MONDAYS; Duration: 84 Active metFORMIN HCl ER 500 MG Tablet [...] Route Administration Date Status Comme nts Novel [id number], preservative free Unknown 02/25/2022 Administered Social History Tobacco Use: Social History Observation Description Date Details (start date - stop date) Former Smoker NA - NA Sex Assigned At : Social History Observation Description Sex Assigned At Male Social History Miscellaneous: Social Info Question Answer Notes Advance Care Planning Are you your own decision-maker Yes Do you have Power of Network Relations Consultant for Health or [facility]? No Safety issues: Are there any firearms [...] Do you have a medical power of health care attorney?: No Gender Identity and LGBTQ Identity [...] Do you have a medical power of health care attorney?: No Public Health and Travel Have [...] Do you have a medical power of health care attorney?: No Public Health and Travel Have [...] Do you have a medical power of health care attorney?: No Gender Identity and LGBTQ Identity [...] Do you have a medical power of health care attorney?: No Gender Identity and LGBTQ Identity [...] Do you have a medical power of health care attorney?: No Gender Identity and LGBTQ Identity Gender identity: Identifies as Male Assigned sex at : Male First name used: DOMINIK Sexual orientation: Straight or heterosexual Current user of electronic cigarettes Hx of Cocaine use Current user of electronic cigarettes Hx of Cocaine use Hx of Cocaine use Hx of Cocaine use Hx of Cocaine use Hx of Cocaine use Hx of Cocaine use Hx of Cocaine use Social History Substance [...] Do you have a medical power of health care attorney?: No Public Health and Travel Have you been to an area known to be high risk for COVID-19?: No Gender Identity and LGBTQ Identity Gender identity: Identifies as Male Assigned sex at : Male First name used: DOMINIK Sexual orientation: Straight or heterosexual Problems Problem Type SNOMED Code ICD Code Onset Dates Problem Status W/U Status Risk Notes Problem Vitamin D deficiency (75748152) Vitamin D deficiency, unspecified (E55.9) 05/29/19 24 Active confirmed Problem Schizoaffective disorder, depressive type (50140553) Schizoaffective disorder, depressive type (F25.1) 05/29/19 24 Active confirmed Problem Generalized anxiety disorder (37887746) Generalized anxiety disorder (F41.1) 05/29/19 24 Active confirmed Problem Long-term current use of drug therapy (640250196) Other longterm (current) drug therapy (Z79.899) Active confirmed Problem Mixed hyperlipidemia (404669204) Mixed hyperlipidemia (E78.2) 12/22/19 18 Active confirmed Problem Chronic insomnia (455450850) Chronic insomnia (F51.04) 11/22/19 16 Active confirmed Problem Essential hypertension (31972559) Benign essential HTN (I10) 04/22/19 24 Active confirmed Vital Signs Heart Rate 65 /min 11/15/2024 Height-cm 187.96 cm 11/15/2024 Blood pressure diastolic 72 mm Hg 11/15/2024 Weight-kg 104.33 kg 10/15/2024 Height 74.00 in 11/15/2024 Blood pressure systolic 107 mm Hg 11/15/2024 Weight 230 lbs 10/15/2024 BMI 29.53 kg/m2 10/15/2024 Encounters Encounter Location Date Provider Diagnosis [facility] [address] [address] 12/03/2023 Ginette Childs Schizoaffective disorder, depressive type F25.1 ; Generalized anxiety disorder F41.1 ; Insomnia due to other mental disorder F51.05 and Vitamin D deficiency, unspecified E55.9 [facility] [address] [place] [address] 01/06/2024 Ginette Reveleswalterjennifer Schizoaffective disorder, depressive type F25.1 ; Generalized anxiety disorder F41.1 ; Insomnia due to other mental disorder F51.05 and Vitamin D deficiency, unspecified E55.9 [facility] [address] [place] [address] 02/06/2024 Sarah Hagopian Schizoaffective disorder, depressive type F25.1 ; Generalized anxiety disorder F41.1 ; Insomnia due to other mental disorder F51.05 ; Vitamin D deficiency, unspecified E55.9 and Benign essential HTN I10 [facility] [address] [facility] [address] [place] [address] 03/05/2024 Sarah Hagopian Schizoaffective disorder, depressive type F25.1 ; Generalized anxiety disorder F41.1 ; Insomnia G47.00 ; Vitamin D deficiency, unspecified E55.9 and Benign essential HTN I10 [place] [address] [facility] [address] [place] [address] 04/02/2024 Sarah Hagopian Schizoaffective disorder, depressive type F25.1 ; Generalized anxiety disorder F41.1 ; Insomnia due to other mental disorder F51.05 ; Vitamin D deficiency, unspecified E55.9 ; Benign essential HTN I10 and Other intermodal dispatcher (current) drug therapy Z79.899 [facility] [address] [place] [address] 05/07/2024 Sarah Hagopian Schizoaffective disorder, depressive type F25.1 ; Chronic insomnia F51.04 ; Generalized anxiety disorder F41.1 ; Vitamin D deficiency, unspecified E55.9 ; Benign essential HTN I10 and Other longterm (current) drug therapy Z79.899 [facility] [address] [facility] [address] [place] [address] 05/07/2024 Sarah Hagopian Schizoaffective disorder, depressive type F25.1 [facility] [address] [place] [address] 06/04/2024 Sarah Hagopian Schizoaffective disorder, depressive type F25.1 ; Generalized anxiety disorder F41.1 ; Chronic insomnia F51.04 ; Benign essential HTN I10 ; Vitamin D deficiency, unspecified E55.9 and Encounter for screening for depression Z13.31 [place] [address] [facility] [address] [place] [address] 07/02/2024 Sarah Hagopian Schizoaffective disorder, depressive type F25.1 ; Generalized anxiety disorder F41.1 ; Chronic insomnia F51.04 ; Benign essential HTN I10 ; Vitamin D deficiency, unspecified E55.9 and Encounter for screening for depression Z13.31 [place] [address] [facility] [address] [place] [address] 07/16/2024 Sarahrom Marcosopian Schizoaffective disorder, depressive type F25.1 ; Generalized anxiety disorder F41.1 ; Chronic insomnia F51.04 ; Vitamin D deficiency, unspecified E55.9 ; Benign essential HTN I10 ; Encounter for screening for depression Z13.31 and Encounter for screening for cardiovascular disorders Z13.[address] [facility] [address] [place] [address] 08/13/2024 Sarah Marcosopian Schizoaffective disorder, depressive type F25.1 ; Generalized anxiety disorder F41.1 ; Chronic insomnia F51.04 ; Vitamin D deficiency, unspecified E55.9 ; Benign essential HTN I10 and Encounter for screening for depression Z13.31 [place] [address] [facility] [address] [place] [address] 09/17/2024 Sarah Marcosopian Generalized anxiety disorder F41.1 ; Schizoaffective disorder, depressive type F25.1 ; Vitamin D deficiency, unspecified E55.9 ; Chronic insomnia F51.04 ; Encounter for screening for cardiovascular disorders Z13.6 and Encounter for screening for depression Z13.31 [place] [address] [facility] [address] [place] [address] 10/15/2024 Sarah Hagopian Schizoaffective disorder, depressive type F25.1 ; Generalized anxiety disorder F41.1 ; Chronic insomnia F51.04 and Vitamin D deficiency, unspecified E55.9 [place] [address] [facility] [address] [place] [address] 11/15/2024 Sarah Bustos Schizoaffective disorder, depressive type F25.1 ; Generalized anxiety disorder F41.1 ; Vitamin D deficiency, unspecified E55.9 and Chronic insomnia F51.04 [facility], [facility] [address] [place] [address] 05/24/2024 Sarah Bustos Insomnia G47.00 and Insomnia due to other mental disorder F51.05 [facility], [facility] [address] [place] [address] 07/21/2024 Sarah Bustos [facility], [facility] [address] [place] [address] 07/23/2024 Sarah Bustos Generalized anxiety disorder F41.1 [facility], [facility] [address] [place] [address] 10/12/2024 Sarah Bustos [facility], [facility] [address] [place] [address] 02/06/2024 Sarah Bustos [facility], [facility] [address] [place] [address] 02/24/2024 Sarah Bustos [facility], [facility] [address] [place] [address] 03/01/2024 Sarah Bustos Insomnia G47.00 and Generalized anxiety disorder F41.1 [facility], [facility] [address] [place] [address] 04/02/2024 Sarah Bustos [facility], [facility] [address] [place] [address] 06/08/2024 Sarah Bustos [facility], [facility] [address] [place] [address] 07/19/2024 Sarah Bustos [facility], [facility] [address] [place] [address] 07/23/2024 Sarah Bustos Generalized anxiety disorder F41.1 [facility], [facility] [address] [place] [address] 09/17/2024 Sarah Bustos Assessments Encounter Date Diagnosis (ICD Code) Assessment Notes Treatment Notes Treatment Clinical Notes Section Notes 03/01/2024 Insomnia (ICD-10 - G47.00) 11/15/2024 Schizoaffective disorder, depressive type (ICD-10 - F25.1) last shot given 10/15/24 11/15/2024 Generalized anxiety disorder (ICD-10 - F41.1) 10/15/2024 Schizoaffective disorder, depressive type (ICD-10 - F25.1) 10/15/2024 Generalized anxiety disorder (ICD-10 - F41.1) 09/17/2024 Schizoaffective disorder, depressive type (ICD-10 - F25.1) 09/17/2024 Generalized anxiety disorder (ICD-10 - F41.1) 04/02/2024 Schizoaffective disorder, depressive type (ICD-10 - [...] mood, and hallucinations at that time. 05/07/2024 Schizoaffective disorder, depressive type (ICD-10 - [...] 4 weeks, sooner if concerns arise 05/07/2024 Schizoaffective disorder, depressive type (ICD-10 - F25.1) Verified the injection dose and diagnosis 05/24/2024 Insomnia (ICD-10 - G47.00) 06/04/2024 Schizoaffective disorder, depressive type (ICD-10 - [...] labs including lipid panel and HbA1c at [facility] (order already placed) - Continue current antipsychotic [...] labs including lipid panel and HbA1c at [facility] (order already placed) - Continue current antipsychotic [...] sleep apnea evaluation if sleep disturbances persist 07/02/2024 Schizoaffective disorder, depressive type (ICD-10 - F25.1) 07/02/2024 Generalized anxiety disorder (ICD-10 - F41.1) 07/16/2024 Schizoaffective disorder, depressive type (ICD-10 - F25.1) 07/23/2024 Generalized anxiety disorder (ICD-10 - F41.1) 07/23/2024 Generalized anxiety disorder (ICD-10 - F41.1) Electronic Prior Authorization was requested for Vilazodone HCl 20 MG Tablet. Provider can order medication once approval received. 08/13/2024 Schizoaffective disorder, depressive type (ICD-10 - F25.1) 08/13/2024 Generalized anxiety disorder (ICD-10 - F41.1) 03/01/2024 Generalized anxiety disorder (ICD-10 - F41.1) 03/05/2024 [...] cont vitamin d follow up 4 weeks 01/06/2024 Schizoaffective disorder, depressive type (ICD-10 - F25.1) cont invega sustenna 156mg IM monthly-given today per staff -then next month if remains stable plan for trinza 546mg, if issue should have 156 sustenna sample in office -invega to [facility] cont seroquel 200mg qhs next visit [...] change to vraylar or invega/CORTÉS; consider clonidine 02/06/2024 Schizoaffective disorder, depressive type (ICD-10 - [...] side effects (Sedation, dizziness) Recommend considering therapy 12/03/2023 Schizoaffective disorder, depressive type (ICD-10 - F25.1) cont invega sustenna 156mg IM monthly-has 1 refill pending at [facility] decrease seroquel to IR 200mg qhs staff [...] change to vraylar or invega/CORTÉS; consider clonidine 12/03/2023 Generalized anxiety disorder (ICD-10 - F41.1) meds as above recommend counseling 02/06/2024 Insomnia due to other mental disorder (ICD-10 - F51.05) as above practice good sleep hygiene 01/06/2024 Generalized anxiety disorder (ICD-10 - F41.1) meds as above recommend counseling 03/05/2024 Generalized anxiety disorder (ICD-10 - F41.1) [...] vitamin d follow up 4 weeks 08/13/2024 Chronic insomnia (ICD-10 - F51.04) 07/16/2024 Generalized anxiety disorder (ICD-10 - F41.1) 07/02/2024 Chronic insomnia (ICD-10 - F51.04) 06/04/2024 Chronic insomnia (ICD-10 - F51.04) Dominik [...] labs including lipid panel and HbA1c at [facility] (order already placed) - Continue current antipsychotic [...] to other mental disorder (ICD-10 - F51.05) 05/07/2024 Generalized anxiety disorder (ICD-10 - F41.1) [...] 4 weeks, sooner if concerns arise 04/02/2024 Insomnia due to other mental disorder [...] sleep, mood, and hallucinations at that time. 09/17/2024 Vitamin D deficiency, unspecified (ICD-10 - E55.9) 10/15/2024 Chronic insomnia (ICD-10 - F51.04) 11/15/2024 Vitamin D deficiency, unspecified (ICD-10 - E55.9) 11/15/2024 Chronic insomnia (ICD-10 - F51.04) 09/17/2024 Chronic insomnia (ICD-10 - F51.04) 10/15/2024 Vitamin D deficiency, unspecified (ICD-10 - E55.9) 05/07/2024 Vitamin D deficiency, unspecified (ICD-10 - [...] in 4 weeks, sooner if concerns arise 06/04/2024 Benign essential HTN (ICD-10 - I10) [...] labs including lipid panel and HbA1c at [facility] (order already placed) - Continue current antipsychotic [...] sleep apnea evaluation if sleep disturbances persist 07/02/2024 Benign essential HTN (ICD-10 - I10) 08/13/2024 Vitamin D deficiency, unspecified (ICD-10 - E55.9) 07/16/2024 Chronic insomnia (ICD-10 - F51.04) 03/05/2024 Insomnia (ICD-10 - G47.00) ongoing anxiety [...] vitamin d follow up 4 weeks 04/02/2024 Vitamin D deficiency, unspecified (ICD-10 - [...] sleep, mood, and hallucinations at that time. 01/06/2024 Insomnia due to other mental disorder (ICD-10 - F51.05) cont trazodone 100mg take 1-2 qhs prn consider OTC melatonin 3-5mg qhs prn, no more than 10mg practice good sleep hygiene 02/06/2024 Vitamin D deficiency, unspecified (ICD-10 - E55.9) notes PCP was prescribing, no longer seeing and getting a new PCP soon. sent prescription for vitamin D 12/03/2023 Insomnia due to other mental disorder (ICD-10 - F51.05) cont trazodone 100mg take 1-2 qhs prn (only if needed, if sedation or oversleeping with other med changes- do not take) practice good sleep hygiene 01/06/2024 Vitamin D deficiency, unspecified (ICD-10 - E55.9) PCP prescribes 12/03/2023 Vitamin D deficiency, unspecified (ICD-10 - E55.9) says PCP prescribed weekly 02/06/2024 Benign essential HTN (ICD-10 - I10) elevated BP, will monitor in follow up visits. check at home Note: Inquired about labs, patient stated he thought he had labs drawn recently. I do not see in external records labs available for me to review. Next visit will follow up on this 03/05/2024 Vitamin D deficiency, unspecified (ICD-10 - [...] vitamin d follow up 4 weeks 08/13/2024 Benign essential HTN (ICD-10 - I10) 07/16/2024 Vitamin D deficiency, unspecified (ICD-10 - E55.9) 07/02/2024 Vitamin D deficiency, unspecified (ICD-10 - E55.9) 04/02/2024 Benign essential HTN (ICD-10 - I10) [...] in 4 weeks, sooner if concerns arise 06/04/2024 Vitamin D deficiency, unspecified (ICD-10 - [...] labs including lipid panel and HbA1c at [facility] (order already placed) - Continue current antipsychotic [...] for depression (ICD-10 - Z13.31) 05/07/2024 Other intermodal dispatcher (current) drug therapy (ICD-10 - Z79.899) Still [...] weeks, sooner if concerns arise 04/02/2024 Other longterm (current) drug therapy (ICD-10 - Z79.899) Assessment [...] sleep, mood, and hallucinations at that time. 07/02/2024 Encounter for screening for depression (ICD-10 - Z13.31) 08/13/2024 Encounter for screening for depression (ICD-10 - Z13.31) 07/16/2024 Benign essential HTN (ICD-10 - I10) 03/05/2024 Benign essential HTN (ICD-10 - I10) [...] cont vitamin d follow up 4 weeks 06/04/2024 Encounter for screening for depression (ICD-10 [...] labs including lipid panel and HbA1c at [facility] (order already placed) - Continue current antipsychotic [...] disturbances persist 07/16/2024 Encounter for screening for depression (ICD-10 - Z13.31) 07/16/2024 Encounter for screening for cardiovascular disorders [...] PANEL, STANDARD (7600) 04/02/2024 COMPREHENSIVE METABOLIC PANEL (64007) CBC (INCLUDES DIFF/PLT) (6399) HEMOGLOBIN A1c (496) 04/02/2024 [id number] GENOTYPE (61014) 07/02/2024 Next Appt Details Provider Name:Sarah jin, 12/22/2024 08:45:00 AM, [address], [facility] [address], [address], Provider Name:Tay Finley , 12/22/2024 09:00:00 AM, [address], [address], [place], [address], Insurance Providers Payer Name Payer Address Payer Phone Subscriber Number Group Number Insured Name Patient Relationship to Insured Coverage Start Date Coverage End Date [employer] [address] [place] [phone] [id number] COURTNEY REECE Self - patient is the [...] unspecified E55.9 Benign essential HTN I10 Other longterm (current) drug therapy Z 79.899 Osteoarthritis M19.90 Chronic insomnia F51.04 Mixed hyperlipidemia E78.2 Obstructive sleep apnea (adult) (pediatr ic) G47.33 Type 2 diabetes mellitus wit h hyperglycemia, without long-term current use of insulin E11.65 Subclinical hypothyroidism E03.8 Surgical History Surgery Date(Month/Year) Reconstructive surgery 3 neck/cervical s pine surgeries 03/31/2017
--- OUTSIDE RECORDS SUMMARY | 2024-12-02 07:47 | XMS_ITS ---
Author Name RAÚL MITCHELL Address [address] [place] [address] Phone Organization [facility] Address [address] [place] [address] Phone Care Team Providers Care Shipfitters Supervisor Name Role Phone MD RAÚL MITCHELL Unavailable ALLERGIES, ADVERSE REACTIONS AND ALERTS Allergy Name Allergy Date Allergy Status Allergy Severity Allergy Reaction NO KNOWN DRUG ALLERGIES MEDICATIONS RxNorm Brand Name Prescription Ordered Value Order Unit Start Date Date Status Fill Status Indications 406769 hydrocod one-acet aminophe n 10-325 mg tablet [...] CERVICAL REGION RADICULOPATHY, CERVICAL REGION Chronic 07/31/2021 Z79.891-CUSTODIAL (CURRENT) USE OF OPIATE ANALGESIC BINDERY MANAGER (CURRENT) USE OF OPIATE ANALGESIC Chronic 07/31/2021 [...] Observation Ex-smoker Sex: Male CARE TEAM INFORMATION Shipfitters Supervisor Provider ID Role Location Phone RAÚL MITCHELL [id number] PHYSICIAN [address], [place] [address]
--- OUTSIDE RECORDS SUMMARY | 2024-12-02 07:47 | XMS_ITS | Clinical Summary ---
Author Organization [facility] [address] Address [address] [place] [address] [address] [place] [address] Care Team Providers Care Truck Driver Salesperson Name Role Phone Ginette Childs CNM Unavailable + [phone] Tay Finley MD Unavailable [phone] Sadi Cisneros MD Primary Care Provider Allergies [...] current management per psychiatry Orders: Thyroid Function Ma[place]; Future Assessment & Plan (07/12/2024 9:54 AM [...] current management per psychiatry Orders: Thyroid Function Ma[place]; Future Assessment & Plan (07/12/2024 9:55 AM [...] - Referral was placed to Gastroenterology at [facility] June of 2024 , colonoscopy scheduled for 11/17/2024 Assessment & Plan (11/15/2024 8:50 AM CDT): - has family hx of colon cancer in brother - reports hx of colon polyp in past - Referral was placed to Gastroenterology at [facility] June of 2024 , colonoscopy scheduled [...] placed LDCT 09/22 - scanned filed from [facility] 5 mm right lower lobe pulmonary [...] for coupon card that they can get [id number]. Reviewed side effects of medication. Really work on diabetic diet and exercise. Encouraged weight loss. We will plan to see him back in 3 months for monitoring. Assessment & Plan (04/22/2023 5:50 PM RRT): Chronic. Uncontrolled but has been off his [...] adjustment Assessment & Plan (04/22/2023 5:52 PM RRT): Chronic. Follows with Psychiatry. Reports currently stable on regimen. Continue medication care per psychiatrist NAFLD (nonalcoholic fatty liver disease) 024 Assessment & Plan (12/11/2023 5:10 PM CDT): LFTs were okay on last labs. Encouraged healthy diet, exercise, weight loss. We will monitor. Repeat LFTs and CMP ordered to establish baseline. Assessment & Plan (04/22/2023 5:54 PM RRT): Patient with history of fatty liver disease. [...] response Assessment & Plan (04/22/2023 5:50 PM RRT): Chronic. Has been on lovastatin possibly at a 20 mg dose. Remotely looks like may have been on rosuvastatin several years ago. Check cholesterol level and start appropriate intensity statin based on results QUYEN on CPAP 10/26/2020 Overview (04/22/2023): (10/26/20 at [facility]): AHI = 22.6 / supine AHI [...] CPAP device if criteria met (10/26/20 at [facility]): AHI = 22.6 / supine AHI [...] send me the serial number (10/26/20 at [facility]): AHI = 22.6 / supine AHI = 61.5 / O2 fabricio = 87%; lack of sleep onset with CPAP. Assessment & Plan (04/22/2023 5:52 PM RRT): Chronic. He reports compliance with CPAP. Continue [...] 04/22/2023 Assessment & Plan (04/22/2023 5:51 PM RRT): Chronic intermittent issue off and on for [...] Monitor Assessment & Plan (04/22/2023 5:53 PM RRT): Chronic. Patient with history of heavy tobacco [...] loss Assessment & Plan (04/22/2023 5:49 PM RRT): Chronic. Blood pressure was controlled in office [...] Description 11/15/2024 8:15 AM CDT Office Visit [facility] Primary Care at [address] [phone] Sadi Cisneros MD Type 2 diabetes mellitus with hyperglycemia, without long-term current use of insulin (HCC) (Primary Dx); QUYEN on CPAP; Mixed dyslipidemia; Personal history of tobacco use; Multiple lung nodules on CT; Hx of colonic polyps; Paranoid schizophrenia (HCC); Moderate episode of recurrent major depressive disorder (HCC); JOSÉ MIGUEL (generalized anxiety disorder) 11/15/2024 Orders Only [facility] Primary Care at [address] [phone] Sadi Cisneros MD QUYEN on CPAP (Primary Dx) 09/21/2024 Results Follow-Up [facility] Primary Care at [address] [phone] Lung Cancer Screening 09/21/2024 Orders Only [facility] Primary Care at [address] [phone] Sadi Cisneros MD Personal history [...] Health Maintenance Due Date Last Done Comments Zoster Vaccine (1 of 2) 2016 Foot Exam 04/22/2024 04/22/2023 Influenza Vaccine (#1) 2024 02/25/2022 Hemoglobin A1C 05/18/2025 11/15/2024, 06/29, 12/11/2023, Additional history exists Albumin Creatinine Ratio, Urine 07/12/2025 , 04/24/2023 Lipid Panel 07/12/2025 07/12/2024, 11/29, 04/24/2023 Regular Well Visit/Exam 18-64 07/12/2025 07/12/2024 eGFR 07/12/2025 07/12/2024, 11/29, 04/24/2023 Lung Cancer Screening 09/16/2025 09/16/2024 Depression Screening 11/15/2025 11/15/2024, 07/12/2024, 12/11/2023, Additional history exists Dilated Eye Exam 07/08/2026 07/08/2024, 09/24/2023 Prostate Cancer Screening-PSA 07/12/2026 07/12/2024, 04/24/2023 Colon Cancer Screening-Colonoscopy 11/18/20272024 DTaP/Tdap/Td Vaccine (2 - Td or Tdap) 11/15/2034 11/15/2024 Hepatitis C Screening Completed 04/24/2023 Hepatitis B Screening Completed 07/12/2024 Pneumococcal vaccine <65 Completed 11/15/2024 Procedures Procedure Name Priority Date/Time Associated Diagnosis Comments COLONOSCOPY Routine 11/17/2024 POCT HEMOGLOBIN A1C Routine 11/15/2024 8 :24 AM CDT Type 2 diabetes mellitus with [...] cancer screening HM DIABETES EYE EXAM Routine 07/08/2024 HEPATITIS C ANTIBODY Routine 04/24/2023 11:47 AM RRT Encounter for hepatitis C screening test for low risk patient from Last 3 Months or Most Recently Relevant to Health Maintenance Results * Colonoscopy (11/17/2024) Anatomical Region Laterality Modality Other us Historical Provider ENDOSCOPY PROCEDURES Gris wai Result * (ABNORMAL) POCT hemoglobin A1c (11/15/2024 8:24 AM CDT) Hemoglobin A1C, POC 6.6(A) 4.0 - 5.6 % Blood 11/15/2024 8:24 AM CDT Sadi Cisneros MD POINT OF CARE TEST ORDE RABLES Final Result * MRI Cervical Spine W WO Contrast (09/16/2024) Anatomical Region Laterality Modality Spine N/A Magnetic Resonan ce [facility] Provider IMG MRI PROCEDURES Final Result * CT Lung Cancer Screening (09/16/2024) Anatomical Region Laterality Modality Chest N/A Computed Tomogra phy Sadi Cisneros MD G CT PROCEDURES Final Result * (ABNORMAL) eGFR [...] ORDERABLES Fi nal Result Performing Organization Address [facility] Co de Phone Number CATHERINE [phone] [address] [facility] [email or web address] [place] [address] * PSA screen (07/12/2024 9:14 AM CDT) [...] ORDERABLES Fi nal Result Performing Organization Address [facility] de Phone Number NASEEMRODRIGO [phone] [address] [facility] [email or web address] [place] [address] * Albumin Creatinine Ratio, Urine (07/12/2024 9:14 AM CDT) Albumin Ur 26.1 mg/L Comment: Interpretive Data No reference range established. Current interpretive data was last revised 2018. Creatinine Ur 131.2 mg/dL [facility] Comment: Interpretive Data No reference range established. Current interpretive data was last revised 2018. Albumin Creatinine Ratio, Ur 20 1 - 29 mg/g [facility] Urine 07/12/2024 9:14 AM CDT 07/12/2024 3:35 PM CDT Sadi Cisneros MD LAB URINE ORDERABLES Fi nal Result Performing Organization Address [facility] Co de [facility] Number [facility] [phone] [address] [facility] [email or web address] [address] * Lipid panel (07/12/2024 9:14 AM CDT) [...] 3. Yg Carrera et al. SAM Cardiol. 2020 July 29;5(5):540-548. doi: 10.1001/jamacardio.2020.0013 Current Interpretive Data was [...] been fasting for 8 hours or more?->No Sadi Cisneros MD LAB BLOOD ORDERABLES Fi nal Result CATHERINE VIDES [id number] [address] [place] [address] * HM DIABETES EYE EXAM (07/08/2024) Historical Provider HEALTH MAINTENANCE Final Result * Hepatitis C antibody Blood (04/24/2023 11:47 AM RRT) Hep C Ab Nonreactive Nonreactive CATHERINE VIDES [...] on 2019. Blood 04/24/2023 11:4 7 AM RRT 04/24/2023 8:19 PM RRT Pat Etienne MD LAB MICROBIOLOGY - GEN ERAL ORDERABLES Final Result CATHERINE VIDES [id number] [address] [place] [address] from Last 3 Months or Most Recently Relevant to Health Maintenance Insurance [employer] [facility] [employer] [address] [place] [address] [employer] [employer] [employer] Address: [address] [place] [address] Care Teams Truck Driver Salesperson Relationship Specialty Start Date End Date Sadi Cisneros MD [address] [facility] [address] [place] [address] PCP - General Family Medicine 09/08/24 Ginette Childs CNM [address] [facility] [address] [place] [address] Nurse Practitioner Psychiatry 04/22/23 Tay Finley MD [address] [place] [address] Referring Physician Psychiatry 07/12/24
--- OUTSIDE RECORDS SUMMARY | 2024-12-02 07:47 | XMS_ITS | Patient Health Record ---
Author Organization [facility] Address [address] [place] [address] Care Team Providers Care Photography Manager Name Role Phone BRIGETTEJUSTICE PERSONAY Primary Care Provider Paty Hutosn Unavailable [phone] Cornell Bowen Unavailable [phone] Radhika Smith Unavailable [phone] Allergies No Known Allergies Results Component Value [...] 200 ug/mL ug/mL pH 5.05 4.50-9.50 Specific [place] 1.010 1.003-1.050 PDF Reviewed date:06/17/2024 10:13:17 AM [...] ETHYL SULFATE 9568 500 ng/mL ETHYL GLUCURONIDE 07485 500 ng/mL TRAZODONE 2527 50 ng/mL Specimen Validity Reviewed date:08/30/2024 10:04:20 AM Interpretation: Performing Lab: Notes/Report: Creatinine 90.39 > 20 mg/dL mg/dL Oxidants NOT DETECTED < 200 ug/mL ug/mL pH 5.18 4.50-9.50 Specific [place] 1.013 1.003-1.050 PDF Reviewed date:08/30/2024 10:04:20 AM [...] 200 ug/mL ug/mL pH 5.73 4.50-9.50 Specific [place] 1.011 1.003-1.050 PDF Reviewed date:08/09/2024 10:07:52 AM [...] 200 ug/mL ug/mL pH 5.34 4.50-9.50 Specific [place] 1.011 1.003-1.050 PDF (Not yet reviewed by [...] 200 ug/mL ug/mL pH 4.99 4.50-9.50 Specific [place] 1.017 1.003-1.050 PDF (Not yet reviewed by [...] 200 ug/mL ug/mL pH 5.02 4.50-9.50 Specific [place] 1.017 1.003-1.050 PDF (Not yet reviewed by [...] 200 ug/mL ug/mL pH 6.22 4.50-9.50 Specific [place] 1.009 1.003-1.050 PDF (Not yet reviewed by [...] W/U Status Risk Notes Problem Cervical radiculopathy (00671434) Cervical radiculopathy (M54.12) Active confirmed Problem Piriformis syndrome (858355835) Piriformis syndrome (G57.00) Active confirmed Problem Lumbosacral spondylosis without myelopathy (16144428) Lumbar Spondylosis without Myelopathy (M47.816) Active confirmed Encounters Encounter Location Date Provider Diagnosis [facility] [phone] 11/09/2024 Paty Canela Lumbar Spondylosis without Myelopathy M47.816 [facility]- [address] [address] 06/08/2024 Bowen Sarabia Vertebrogenic low ba ck pain M54.51 ; Piriformis syndrome G57.00 and Lumbar Spondylosis without Myelopathy M47.816 [facility]- [address] [address] 06/15/2024 Bowen Sarabia Myalgia, other site M79.18 [facility]- [address] [address] 06/17/2024 Smith Ahmed Lumbar Spondylosis without Myelopathy M47.816 and Myalgia, other site M79.18 [facility] [phone] 07/06/2024 Paty Canela Lumbar Spondylosis without Myelopathy M47.816 [facility] [address] 07/27/2024 Bowen Sarabia Piriformis syndrome G57.00 and Lumbar Spondylosis without Myelopathy M47.816 [facility] [address] 08/17/2024 Bowen Sarabia Cervical radiculopat hy M54.12 ; Piriformis syndrome G57.00 ; Acute pain of right shoulder M25.511 and Acute pain of left shoulder M25.512 [facility] [address] 08/31/2024 Bowen Sarabia Piriformis syndrome G57.00 and Myalgia, other site M79.18 [facility] [address] 09/14/2024 Bowen Sarabia Cervical radiculopat hy M54.12 ; Piriformis syndrome G57.00 ; Acute pain of right shoulder M25.511 and Acute pain of left shoulder M25.512 [facility] [address] 10/12/2024 Bowen Sarabia Lumbar Spondylosis without Myelopathy M47.816 ; Other specified mononeuropathies of bilateral upper limbs G56.83 and Meralgia paresthetica, bilateral lower limbs G57.13 [facility] [address] 11/11/2024 Bowen Sarabia Lumbar Spondylosis without Myelopathy M47.816 and Other intervertebral disc degeneration, 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 [facility] [address] [place] [address] [address] [place], [place] [id number] 06/10/2024 Paty Canela [facility] [address] [place] [address] 06/10/2024 Paty Canela [facility] [address] [place] [address] 06/17/2024 Paty Canela [facility] [address] [place] [address] 07/30/2024 Paty Canela [facility] [address] [place] [address] 08/17/2024 Paty Canela [facility] [address] [place] [address] 09/15/2024 Paty Canela [facility] [address] [place] [address] 09/28/2024 Paty Canela [facility] [address] [place] [address] 11/11/2024 Paty Canela Assessments Encounter Date Diagnosis (ICD Code) Assessment Notes Treatment Notes Treatment Clinical Notes Section Notes 11/09/2024 Lumbar Spondylosis without Myelopathy (ICD-10 - M47.816) 06/08/2024 Vertebrogenic low back pain (ICD-10 - [...] unchanged from 09/14/24 except as denoted below. 11/11/2024 Lumbar Spondylosis without Myelopathy (ICD-10 - M47.816) Assessment is unchanged from 10/12/24 except as denoted below. 11/11/2024 Other intervertebral disc degeneration, lumbar region with discogenic back pain only (ICD-10 - M51.360) Assessment is unchanged from 10/12/24 except as denoted below. 06/08/2024 Lumbar Spondylosis [...] unchanged from 08/17/24 except as denoted below. 11/30/2024 Other Notes: Significant time was spent due to complex decision-making as a result of the patient's complicated pain issues. The plan is as follows: Patient will continue exercise therapy regimen. Assessment is unchanged from 11/11/24 except as denoted below. 06/08/2024 Other PLAN: [...] satisfaction.4. We explained to the patient that [facility] is an interventional pain management [...] to his IBS. Reminded the patient that [facility] is an interventional pain management practice, and [...] unchanged from 09/14/24 except as denoted below. 11/11/2024 Other Notes: [...] is given for the RFA, and a personal driver will be needed on procedure day. The patient expresses understanding. All patient questions were answered to patient's satisfaction. The patient recently did have a successful right L3/4 and L4/5 diagnostic facet joint injection. Will schedule the patient for a right L 2,3,4 MBB x1 en route to MB nerve [...] with and without Cont rast 08/17/2024 Results 10/12/2024 Results 09/14/2024 Results 11/11/2024 Results 08/17/2024 Specimen Validity 10/12/2024 Specimen Validity 09/14/2024 Specimen Validity 11/11/2024 Specimen Validity 08/17/2024 PDF 11/11/2024 PDF 08/17/2024 PDF 10/12/2024 PDF 09/14/2024 Next Appt Details Provider Name:Paty Morganvandana whittaker, 12/07/2024 10:00:00 AM, [address] [place], [address], Provider Name:Paty Morganvandana whittaker, 12/28/2024 10:00:00 AM, [address] [facility], [place], [address], Insurance Providers Payer Name Payer Address Payer Phone Subscriber Number Group Number Insured Name Patient Relationship to Insured Coverage Start Date Coverage End Date [id number] MARIBELL Jett [phone] [id number] Ilia Ricketts Self - patient is the insured Medical (General) History Medical History History ICD Code Diabetes Sleep Apnea Headaches Depression Schizophrenia Bipolar Disorder Surgical History Surgery Date(Month/Year) Cervical Cage placement 2011 C3-C6 Fusion 1999 Hospitalization History Reason Date(Month/Year) See surgical history
--- NOTE | 2024-12-22 12:38 | P.SLEEP_ITS ---
Sleep Study - Home Unattended Date of Study: 12/02/24 Ordering Provider: Sadi Cisneros, Interpreting Provider: Lucina Infante, DO Home Sleep Study Type: Watch PAT Height: 1.88 m Weight: 111.13 kg Body Mass Index: 31.4 Neck Circumference (inches): 17 [place]: 9 Reason for Sleep Study Snoring, trouble falling & staying asleep Sleep History The patient is a 59-year-old male that had a sleep study ordered by his primary care physician for evaluation of sleep apnea. The patient has been previously diagnosed with obstructive sleep apnea and Restless Legs syndrome but his CPAP machine is malfunctioning. He admits to snoring loudly, interruptions in breathing while asleep, trouble falling asleep and trouble staying asleep. He denies choking or gasping at night. He denies having trouble breathing on his back. He denies morning headaches. He does have a dry or sore mouth/ throat in the morning. He denies nocturnal heartburn. He denies nocturia. He does have difficulty returning to sleep if he wakes up throughout the night. He does use hypnotic her sedatives. He does feel anxious about sleep. He does feel tired or sleepy during the day. He does feel tired in the morning. He does have the urge to fall asleep during the day. He does feel drowsy while driving. He denies sleep paralysis, cataplexy and hypnagogic/ hypnopompic hallucinations. He does clench or grind his teeth. He does kick or jerk his legs excessively. He does have a restless feeling in his legs. A restless feeling does cause an urge to move his legs. The feeling gets worse with rest and better with activity. It is predominantly in the evening and it does cause a disturbance in his sleep. He goes to bed at 10:00 p.m. on work days and at 11:00 p.m. on his days off. It takes him 1 hour to fall asleep. He gets 6 hours of sleep per night. His sleep is not restorative on his days off. He denies taking any planned naps. He denies dream enactment behavior. He denies sleep walking. He denies consuming any caffeinated beverages throughout the day. He denies tobacco and alcohol use. He exercises 1-2 nights per week. [facility] Past Medical History Medical History Colon cancer screening Diabetes QUYEN (obstructive sleep apnea) Surgical History Surgical History S/P cervical spinal fusion Social History Social History Smoking status: Former smoker Tobacco type: cigarettes Substance use type: does not use Living arrangements: with family Spiritual care concerns: No Medications Home Medications ?Medication ?Instructions ?Recorded ?Confirmed ?Type empagliflozin 25 mg tablet 25 mg PO DAILY 08/27/24 History (Jardiance) metformin 500 mg tablet,extended 500 mg PO BID 5 11/17/24 History release 24 hr rosuvastatin 20 mg tablet 20 mg PO DAILY 08/27/2410/30 History baclofen 10 mg tablet mg PO 11/17/24 History Sleep Procedure The sleep study was completed using EventoT a technically adequate device with seven channels: peripheral arterial tone, actigraphy, body position, snore, respiratory movement, pulse oximetry, sleep staging, and heart rate. Prior to using the device, the patient received verbal and written instructions for its application and was provided with the help desk phone number for additional telephonic instruction with 24-hour availability of qualified personnel to answer questions. The study was scored using CMS guidelines. Sleep Architecture The total recording time is 9 hrs, 6 min. The total sleep time is 8 hrs, 53 min. Sleep latency is 5 minutes. REM latency is 116 minutes. The patient had 2 episodes of waking. Sleep architecture shows 17.0% deep sleep, 43.7% light sleep, and (as % Total Sleep Time) showed NREM (Light 43.7%; Deep 17.0%), and a 39.3% stage REM. The patient spent 82.0% of total sleep time in the supine position. Sleep efficiency was 97.62. Respiratory Analysis The overall AHI (pAHI 4%:) is 1.5. The overall AHI (pAHI 3%:) is 2.1. The central AHI is 0.2. The AHI was 0.9 in NREM and 4.0 in REM sleep. The AHI was 2.1 in Supine and 2.5 in Non-supine sleep. Percent of Kayden Olmedo respirations is 0.0. Oximetry Data The oxygen desaturation index (HEMANTH 4%:) is 0.7. The mean saturation is 94%, and the lowest saturation is 90%. Time spent with saturation < 88% is 0.0 minutes. Snoring Profile Snoring average intensity is 41 dB. The patient snored above 45 decibels for 5.6 minutes, 1.0% of sleep time. Cardiac Profile The average pulse rate is 66 beats per minutes. The lowest pulse rate is 55 bpm. The highest pulse rate reported is 127 bpm. Atrial fibrillation was not detected. Premature beats occur 0.2 per minute. Assessment and Plan Assessment and Plan (1) Non-restorative sleep: Code(s): G47.8 - Other sleep disorders Status: Acute Assessment and Plan: The patient had an overall AHI of 1.5 with desaturation down to 90%. This is not consistent with sleep-disordered breathing. Due to the severity of the patient's symptoms, further evaluation is warranted. I recommend that the patient have a split study with the use of a hypnotic to ensure we obtain enough sleep data. The patient's sleep history is consistent with Restless Leg Syndrome. I recommend that the patient have a serum ferritin drawn for evaluation of iron deficiency anemia. If the patient has a serum ferritin less than 75 ng/mL, I recommend starting a daily iron supplement and a Vitamin C supplement for better absorption. If the serum ferritin is greater than 75 ng/mL, I recommend starting a dopamine agonist and titrating the dose until symptoms resolve. There are nonpharmacological methods to treat limb movements including daily exercise, stretching calf muscles before bed, avoiding excessive amounts of caffeine and alcohol, vitamin B supplementation, magnesium lotion massaged into legs before bed, and use of a weighted blanket. Data The data obtained during this sleep study is adequate for interpretation. Certification This sleep study has been reviewed by a board certified sleep medicine physician.
[2024-12-22 14:38] VITALS: BMI 31.4
== END 2024-12-03 11:02 | disposition home or self-care (01) ==
LOC: ANHCSM 07:44
PROVIDERS: PCP Family Medicine; Visit Provider Family Medicine
DX: G47.8 Other sleep disorders (principal)
CPT/HCPCS: 95800